=== PATIENT | female | born 1950 | race Caucasian/White ===

== ENCOUNTER 2019-07-20 13:41 | Inpatient (IN) | payer OTHER ==
[2019-07-20 14:58] LABS: Absolute Lymphocytes (CBC) 2.3 K/uL (0.7-4.9); Basophils % 1.7 % (0-1.3); Lymphocytes % 22.7 % (15.3-44.8); MPV 8.3 fL (7.6-11.3); RBC Red Blood Cell Count 2.95 M/uL (3.86-4.86)
[2019-07-20 15:03] LABS: Potassium 3.9 mmol/L (3.5-5.1)
[2019-07-20 15:07] LABS: Hematocrit 18.1 % (36.0-45.0)
--- NOTE | 2019-07-20 16:19 | ER ---
Nurse's Notes [facility] Name: Erma Lara Age: 68 yrs Sex: Female : 1950 Arrival Date: 07/20/2019 Time: 13:44 Bed 8 Private MD: Socrates Batista Diagnosis: Anemia in other chronic diseases classified elsewhere Presentation: 07/20 13:50 Presenting complaint: Patient states: "my hemoglobin is 4.8 and they naun my blood last aa5 but my doctor just got the results". Pt reports heart palpitations, generalized weakness, SOB, and dizziness. Transition of care: patient was not received from another setting of care. Onset of symptoms was July 20, 2019. Risk Assessment: Do you want to hurt yourself or someone else? Patient reports no desire to harm self or others. Initial Sepsis Screen: Does the patient meet any 2 criteria? HR > 90 bpm. Does the patient have a suspected source of infection? No. Patient's initial sepsis screen is negative. Care prior to arrival: None. 13:50 Acuity: TRISTON 2 aa5 13:50 Method Of Arrival: Wheelchair aa5 Historical: - Allergies: 13:53 hydrocodone; aa5 - PMHx: 13:53 Migraines; Hyperlipidemia; aa5 - PSHx: 13:53 Hysterectomy; Tonsillectomy; Knee surgery; ankle surgery; aa5 - Immunization history:: Flu vaccine is up to date. - Social history:: Smoking status: Patient/guardian denies using tobacco. - Ebola Screening: : No symptoms or risks identified at this time. Screenin:10 Abuse screen: Denies threats or abuse. Denies injuries from another. Nutritional mg2 screening: No deficits noted. Tuberculosis screening: No symptoms or risk factors identified. Fall Risk Secondary diagnosis (15 points) anemia. IV access (20 points). Assessment: 14:11 General: Appears in no apparent distress. comfortable, Behavior is calm, cooperative. mg2 Pain: Denies pain. Neuro: Level of Consciousness is awake, alert, obeys commands, Oriented to person, place, time, situation. Cardiovascular: Reports palpitations, shortness of breath, Capillary refill < 3 seconds Patient's skin is warm and dry. Respiratory: Reports shortness of breath Airway is patent Respiratory effort is even, unlabored, Respiratory pattern is regular, symmetrical. Respiratory: GI: : No signs and/or symptoms were reported regarding the genitourinary system. EENT: No signs and/or symptoms were reported regarding the EENT system. Derm: Skin is clammy, Skin is pale. Musculoskeletal: Circulation, motion, and sensation intact. Capillary refill < 3 seconds. 15:22 Reassessment: Patient appears in no apparent distress at this time. No changes from tw2 previously documented assessment. Patient and/or family updated on plan of care and expected duration. Pain level reassessed. 16:21 Reassessment: Patient appears in no apparent distress at this time. Patient and/or mg2 family updated on plan of care and expected duration. Pain level reassessed. Patient is alert, oriented x 3, equal unlabored respirations, skin warm/dry/pink. 16:45 Reassessment: SEE BLOOD TRANSFUSION RECORD. tw2 16:46 Reassessment: dr. Huerta came and assessed the patient and guaiac exam was done by him. mg2 he advised for admission patient agreed. 16:59 Reassessment: Patient appears in no apparent distress at this time. No changes from tw2 previously documented assessment. Patient and/or family updated on plan of care and expected duration. Pain level reassessed. Patient is alert, oriented x 3, equal unlabored respirations, skin warm/dry/pink. Vital Signs: 13:52 BP 141 / 68; Pulse 113; Resp 20 S; Temp 98.4(TE); Pulse Ox 100% on R/A; Weight 70.31 kg aa5 (R); Height 5 ft. 3 in. (160.02 cm) (R); Pain 0/10; 15:22 BP 125 / 55; Pulse 91; Resp 17; Pulse Ox 100% on R/A; tw2 16:45 BP 124 / 53; Pulse 90; Resp 18; Pulse Ox 100% on R/A; tw2 13:52 Body Mass Index 27.46 (70.31 kg, 160.02 cm) aa5 ED Course: 13:44 Patient arrived in ED. mr 13:44 Socrates Batista MD is Private Physician. mr 13:50 Arm band placed on. aa5 13:52 Triage completed. aa5 13:55 Scott Bueno RN is Primary Nurse. mg2 14:09 Christiano Thompson MD is Attending Physician. gs 14:10 Inserted saline lock: 20 gauge in left antecubital area, using aseptic technique. Blood mg2 collected. 14:12 Patient has correct armband on for positive identification. manager monitoring on. Pulse mg2 ox on. NIBP on. 14:30 EKG done, by global position system technician. reviewed by Christiano Thompson MD. at1 16:18 Latesha Huerta MD is Hospitalizing Provider. gs 16:21 Served as a employment security officer during rectal exam. mg2 17:04 Patient admitted, IV remains in place. tw2 Administered Medications: No medications were administered Point of Care Testing: Guaiac: 16:22 Stool Guaiac: Positive; Stool Hemoccult Control: Pass; mg2 Outcome: 16:19 Decision to Hospitalize by Provider. gs 17:25 Admitted to Tele accompanied by nurse, accompanied by tech, via stretcher, with chart. mg2 17:25 Condition: stable 17:25 Condition: stable 17:25 Instructed on the need for admit, Demonstrated understanding of instructions. mg2 17:26 Patient left the ED. mg2 Signatures: Bety Casillas mr CochranMariah, RN RN aa5 Radha Pinzon, radiologic electronic specialist EKG Tat1 Ban Don RN RN tw2 Christiano Thompson MD MD Scott Bueno RN RN mg2 Corrections: (The following items were deleted from the chart) 16:22 14:10 No provider procedures requiring assistance completed. mg2 mg2 16:59 16:45 BP 124 / 53; Pulse 90bpm; Resp 18bpm; Pulse Ox 100% RA; mg2 tw2
--- NOTE | 2019-07-20 16:20 | EDPHYS ---
Physician Documentation [facility] Name: Erma Lara Age: 68 yrs Sex: Female : 1950 Arrival Date: 07/20/2019 Time: 13:44 Bed 8 Private MD: Socrates Batista ED Physician Christiano Thompson HPI: 07/20 16:05 This 68 yrs old Female presents to ER via Wheelchair with complaints of gs Abnormal Lab Results. 16:05 short of breath worse with exertion, Hb 4.8 drawn last week no s/s gi bleeding. gs Historical: - Allergies: 13:53 hydrocodone; aa5 - PMHx: 13:53 Migraines; Hyperlipidemia; aa5 - PSHx: 13:53 Hysterectomy; Tonsillectomy; Knee surgery; ankle surgery; aa5 - Immunization history:: Flu vaccine is up to date. - Social history:: Smoking status: Patient/guardian denies using tobacco. - Ebola Screening: : No symptoms or risks identified at this time. ROS: 16:05 All other systems are negative. gs Exam: 16:05 Head/Face: Normocephalic, atraumatic. Eyes: Pupils equal round and reactive to light, gs extra-ocular motions intact. Lids and lashes normal. Conjunctiva and sclera are non-icteric and not injected. Cornea within normal limits. Periorbital areas with no swelling, redness, or edema. ENT: Nares patent. No nasal discharge, no septal abnormalities noted. Tympanic membranes are normal and external auditory canals are clear. Oropharynx with no redness, swelling, or masses, exudates, or evidence of obstruction, uvula midline. Mucous membranes moist. Neck: Trachea midline, no thyromegaly or masses palpated, and no cervical lymphadenopathy. Supple, full range of motion without nuchal rigidity, or vertebral point tenderness. No Meningismus. Chest/axilla: Normal chest wall appearance and motion. Nontender with no deformity. No lesions are appreciated. Cardiovascular: Regular rate and rhythm with a normal S1 and S2. No gallops, murmurs, or rubs. Normal PMI, no JVD. No pulse deficits. Respiratory: Lungs have equal breath sounds bilaterally, clear to auscultation and percussion. No rales, rhonchi or wheezes noted. No increased work of breathing, no retractions or nasal flaring. Abdomen/GI: Soft, non-tender, with normal bowel sounds. No distension or tympany. No guarding or rebound. No evidence of tenderness throughout. Back: No spinal tenderness. No costovertebral tenderness. Full range of motion. Skin: Warm, dry with normal turgor. Normal color with no rashes, no lesions, and no evidence of cellulitis. MS/ Extremity: Pulses equal, no cyanosis. Neurovascular intact. Full, normal range of motion. Neuro: Awake and alert, GCS 15, oriented to person, place, time, and situation. Cranial nerves II-XII grossly intact. Motor strength 5/5 in all extremities. Sensory grossly intact. Cerebellar exam normal. Normal gait. 16:05 Constitutional: The patient appears alert, awake, pale. 16:05 ECG was reviewed by the Attending Physician. 17:08 Abdomen/GI: Rectal exam: Stool: guaiac positive. gs Vital Signs: 13:52 BP 141 / 68; Pulse 113; Resp 20 S; Temp 98.4(TE); Pulse Ox 100% on R/A; Weight 70.31 kg aa5 (R); Height 5 ft. 3 in. (160.02 cm) (R); Pain 0/10; 15:22 BP 125 / 55; Pulse 91; Resp 17; Pulse Ox 100% on R/A; tw2 16:45 BP 124 / 53; Pulse 90; Resp 18; Pulse Ox 100% on R/A; tw2 13:52 Body Mass Index 27.46 (70.31 kg, 160.02 cm) aa5 MDM: 14:36 Patient medically screened. gs 16:05 Differential Diagnosis anemia chronic disease, gi bleed, hemo;lytic anemia. Data reviewed: vital signs, nurses notes, lab test result(s), EKG. Counseling: I had a detailed discussion with the patient and/or guardian regarding: the historical points, exam findings, and any diagnostic results supporting the discharge/admit diagnosis, lab results, radiology results, the need for further work-up and treatment in the hospital. 07/20 14:09 Order name: CBC with Diff 07/20 14:09 Order name: Basic Metabolic Panel; Complete Time: 15:40 07/20 14:09 Order name: T\T\S 07/20 14:36 Order name: PT-INR; Complete Time: 15:40 07/20 15:48 Order name: Bb Add On eb 07/20 15:51 Order name: Packed RBCs (Additional Unit) [facility] 07/20 14:09 Order name: EKG; Complete Time: 14:10 07/20 14:09 Order name: EKG - Nurse/Tech; Complete Time: 14:33 07/20 15:59 Order name: Consent for Blood Transfusion; Complete Time: 15:59 tw2 07/20 16:17 Order name: LFT's 07/20 16:17 Order name: Ferritin 07/20 16:17 Order name: TIBC 07/20 17:00 Order name: Transfer - Initiate; Complete Time: 17:00 tw2 EC:05 Rate is 93 beats/min. Rhythm is regular. MN interval is normal. QRS interval is normal. gs T waves are Normal. No ST changes noted. Clinical impression: Abnormal EKG without significant change. Interpreted by me. Administered Medications: No medications were administered Point of Care Testing: Guaiac: 16:22 Stool Guaiac: Positive; Stool Hemoccult Control: Pass; mg2 Disposition: 07/20/19 16:19 Hospitalization ordered by Latesha Huerta for Inpatient Admission. Preliminary diagnosis is Anemia in other chronic diseases classified elsewhere. - Bed requested for Telemetry/MedSurg (Inpatient). - Status is Inpatient Admission. mg2 - Condition is Stable. - Problem is an acute exacerbation. - Symptoms are unchanged. UTI on Admission? No Critical care time excluding procedures: 16:17 Critical care time: Bedside Care: 10 minutes, Consultation: 10 minutes, Family Intervention: 10 minutes. Total time: 30 minutes Signatures: Dispatcher [employer] [facility] Marci Piña RN MAG dw Mariah Cochran RN RN aa5 Ban Don RN RN tw2 Christiano Thompson MD MD Scott Bueno RN RN mg2 Corrections: (The following items were deleted from the chart) 16:49 16:19 Hospitalization Ordered by Latesha Huerta MD for Inpatient Admission. Preliminary dw diagnosis is Anemia in other chronic diseases classified elsewhere. Bed requested for Telemetry/MedSurg (Inpatient). Status is Inpatient Admission. Condition is Stable. Problem is an acute exacerbation. Symptoms are unchanged. UTI on Admission? No. gs 17:26 16:49 07/20/2019 16:19 Hospitalization Ordered by Latesha Huerta MD for Inpatient mg2 Admission. Preliminary diagnosis is Anemia in other chronic diseases classified elsewhere. Bed requested for Telemetry/MedSurg (Inpatient). Status is Inpatient Admission. Condition is Stable. Problem is an acute exacerbation. Symptoms are unchanged. UTI on Admission? No. dw
[2019-07-20] MEDS ORDERED: NA CHLORIDE 0.9% 500 ML ONE (16:23)
[2019-07-20] MEDS ORDERED: NA CHLORIDE 0.9% 0 ML ONE (16:33)
[2019-07-20 16:43] LABS: ALT/SGPT 15 U/L (12-78); AST/SGOT 13 U/L (15-37); Albumin 3.3 g/dL (3.4-5.0); Alkaline Phosphatase 79 U/L (45-117); Bilirubin Direct < 0.1 mg/dL (0-0.2); Bilirubin Total 0.3 mg/dL (0.2-1.0); Ferritin 11.1 ng/mL (8-388); Protein, Total 7.3 g/dL (6.4-8.2); Transferrin 431 mg/dL (200-360)
[2019-07-20 17:35] LABS: Anisocytosis 1+; Blood Morphology Comment NOTED (NOT SEEN); Hypochromasia 3+; Platelet Estimate INCR; Polychromasia 1+
[2019-07-20] MEDS ORDERED: NA CHLORIDE 0.9% 250 ML IV SCH (17:47)
[2019-07-20] MEDS ORDERED: FUROSEMIDE 20 MG/ 2ML VIAL IV ONE ×2 (17:47→22:00)
[2019-07-20] MEDS ORDERED: ONDANSETRON 4 MG/2 ML VIAL IV PRN (17:47)
[2019-07-20] MEDS ORDERED: ACETAMINOPHEN 500 MG TAB PO PRN (17:47)
[2019-07-20 18:35] VITALS: BMI 26.4
[2019-07-20] MEDS: PANTOPRAZOLE INJ 80 MG in NA CHLORIDE 0.9% 250 ML IV SCH (18:38)
[2019-07-20] MEDS ORDERED: MECLIZINE HCL 12.5 MG TAB PO PRN (18:54)
[2019-07-20] MEDS ORDERED: [UNRECOGNIZED DRUG - OTHER] NAS PRN (18:54)
[2019-07-20] MEDS ORDERED: FLUTICASONE PROPIONATE NAS PRN (18:54)
[2019-07-20] MEDS ORDERED: RIZATRIPTAN BENZOATE 10 MG PO PRN (18:54)
[2019-07-20] MEDS ORDERED: SOLIFENACIN SUCCIN 5 MG TAB PO SCH (21:00)
[2019-07-20] MEDS ORDERED: ZOLPIDEM TARTRATE 5 MG TABLET PO SCH (21:00)
[2019-07-21] MEDS: PANTOPRAZOLE INJ 80 MG in NA CHLORIDE 0.9% 250 ML IV SCH (03:23)
[2019-07-21] MEDS: NA CHLORIDE 0.9% 1,000 ML IV SCH ×2 (03:43→03:47)
--- NOTE | 2019-07-21 03:50 | HP ---
Date of Admission: 07/20/2019 Chief Complaint: Dizziness, lightheadedness. Primary Care Physician: Dr. Batista. Automotive Machinist: Jono Sage M.D., GI. Code status: Full History Of Present Illness: The patient is a 68-year-old female with past medical history of hyperlipidemia, migraine headaches, gastroesophageal reflux disease, chronic back pain, on NSAIDS, and history of stomach ulcers with H pylori, which was treated over 2 years ago. Patient states that since April, the patient has been experiencing dizziness, which has worsened over the past couple of days to weeks. Patient's symptoms were constantly moderate, progressively worsening, has had cardiac workup, pulmonology workup, and was ruled out for Crohn's as well. She denies any fevers, chills, nausea, vomiting ; however, she does report significant amount of belching. As noted earlier, she does use vojf-bam-gwowvtf ibuprofen on top of the NSAIDs, which is prescribed for her back pain. Patient's last hemoglobin level in November was 13.7, recheck by her rpg programmer was 4.8, and therefore, the patient was directed to the emergency room at our facility. Patient's hemoglobin was 5.2. She denies any active bleeding. No dark stools. No hemoptysis or hematemesis. Patient does have hemorrhoids. Her vital signs were stable. Her heart rate was elevated at 113; however, blood pressure was normal and she was 100% on room air. Patient is severely symptomatic. She is unable to walk without getting dyspneic and is severely anemic. 2 units of blood were ordered for the patient and she was referred for admission. When seen in the ER, she was awake , alert, and oriented x3, in some mild distress, accompanied by her . Past Medical History: Hyperlipidemia, gastroesophageal reflux disease, history of ulcers in the past due to H pylori, which was treated, migraine headaches, arthritis, chronic back pain, on NSAIDs. Past Surgical History: Hysterectomy, tonsillectomy, knee and ankle surgery, scope 2 years ago, and colonoscopy. Allergies: CODEINE. Social History: Patient denies any tobacco use or alcohol use. No illicit drug use. Patient is . Lives at home with her . Independent in her activities of daily living. Family History: Mother had diabetes, hypertension, and also has had thyroid surgery. Review of Systems: 10-point system reviewed and negative except as per HPI. Physical Examination: Vital Signs: Blood pressure 141/68, pulse 113, respirations 20, temperature 98.4, O2 of 100% on room air. General: Awake, alert, oriented x3, in some mild distress, elderly female. HEENT: Normocephalic, atraumatic. PERRLA. EOMI. Moist mucous membranes. Oropharynx is clear. Conjunctiva is anicteric. Neck: Supple. No JVD. Trachea midline. CV: S1, S2. Sinus tachycardia. Peripheral pulses present. No murmurs. Respiratory: Moving air well bilaterally. No wheezing or stridor. No use of accessory muscles. Gastrointestinal: Abdomen is soft, nontender, nondistended. Positive bowel sounds. Rectal: Patient has external hemorrhoid at the 8 o'clock position, appears to be thrombosed. Her stool guaiac is positive. Normal anal sphincter, normal tone. Extremities: No clubbing, cyanosis, or edema. No calf tenderness. Neuro: Cranial nerves 2 through 12 intact grossly. No focal neurological deficit. Speech is normal. Strength is 5/5 in bilateral upper and lower extremities. Sensation intact to light touch. SKIN: Patient appears very pale, cool to touch. No rashes. Psych: Mood is okay. Affect is full. Insight and judgment are good. Laboratory Data: INR 1. Sodium 141, potassium 3.9, chloride 110, CO2 of 23, BUN 20, creatinine 1.23. Glucose 146, calcium 8.8, WBC 10.2, H and H 5.2 and 18.1, platelets 576, MCV is 61.4, MCH 17.5, neutrophil 65%. Assessment: A 68-year-old female with: 1. Acute blood loss anemia, likely secondary to upper gastrointestinal source. Patient will need 2 units of packed red blood cells. We will monitor H and H after transfusion, 2 hours post transfusion. Lasix 20 mg IV. After each unit, consult Gastroenterology. Likely source is gastric ulcer from chronic nonsteroidal anti-inflammatory drug use and history of previous ulcers. 2. Upper gastrointestinal bleed. Stool guaiac positive. Patient with history of ulcers. We will start on intravenous proton pump inhibitor. Patient will likely benefit from upper endoscopy. Consult gastroenterology. 3. Hyperlipidemia. We will continue statin. 4. History of migraine headaches. We will continue medications p.r.n. 5. Arthritis, likely generalized osteoarthritis. Patient has chronic back pain. Avoid nonsteroidal anti-inflammatory drugs. 6. Thrombocytosis, likely reactive. 7. Renal insufficiency. Patient has decreased GFR from an earlier creatinine level compared to previous labs from May. We will continue on intravenous fluids. Avoid nonsteroidal anti-inflammatory drugs. Monitor creatinine levels. Plan: Admit patient to Med-Surg, place as inpatient. Length of stay, greater than 2 midnights. ANDIE Voice ID: [id number] MTDD
[2019-07-21 04:44] LABS: Absolute Lymphocytes (CBC) 2.3 K/uL (0.7-4.9); Basophils % 1.3 % (0-1.3); Hematocrit 27.4 % (36.0-45.0); Lymphocytes % 22.5 % (15.3-44.8); RBC Red Blood Cell Count 4.02 M/uL (3.86-4.86)
[2019-07-21 04:54] LABS: Potassium 3.6 mmol/L (3.5-5.1)
[2019-07-21] MEDS ORDERED: MONTELUKAST 10 MG TAB PO SCH (09:00)
[2019-07-21] MEDS ORDERED: FENOFIBRATE PO SCH (09:00)
[2019-07-21] MEDS ORDERED: Ringers Lactate 1,000 ML IV ONE (11:44)
[2019-07-21] MEDS ORDERED: EPINEPHRINE/PF 1 MG/ML AMP ONE (11:47)
[2019-07-21] MEDS ORDERED: PROPOFOL 200 MG/20 ML VIAL IV ONE (12:12)
[2019-07-21] MEDS ORDERED: LIDOCAINE 1% MPF 2 ML AMPULE ONE (12:12)
--- NOTE | 2019-07-21 12:56 | EKG ---
Test Date: 2019-07-20 Test Time: 14:19:19 Jtac: KHOA MEASUREMENT RESULTS: Intervals: Rate: 93 IL: 176 QRSD: 82 QT: 348 QTc: 432 Derwent: P: 67 IL: 176 QRS: -12 T: 68 INTERPRETIVE STATEMENTS: Normal sinus rhythm Moderate voltage criteria for LVH, may be normal variant Borderline ECG Compared to ECG 11/19/2015 07:26:28 Sinus tachycardia no longer present Atrial premature complex(es) no longer present Myocardial infarct finding no longer present Electronically Signed On 07-21-19 12:54:58 CDT by Fili Quinteros
[2019-07-21 13:06] VITALS: TEMP 97.6; O2SAT 100
[2019-07-21 13:07] VITALS: BP 131/50
[2019-07-21] MEDS ORDERED: PANTOPRAZOLE 40MG TABLET PO SCH (13:10)
[2019-07-21 13:33] LABS: Hematocrit 27.3 % (36.0-45.0)
--- NOTE | 2019-07-21 15:56 | PN ---
Date of Progress Note: 07/21/2019 Subjective: Patient seen and examined. Chart reviewed and case discussed with RN. Patient signific antly improved. No further dizziness or shortness of breath after 2 units of blood. at the bedside. Treatment plan explained. All questions answered. Medications: List reviewed. Physical Examination: Vital Signs: Temperature 97.4, heart rate 75, blood pressure 129/59, respirations 16, O2 of 96% on r oom air. General: Awake, alert, and oriented x3. Minimal distress, elderly female. CV: S1, S2. Regular rate and rhythm. Peripheral pulses present. Respiratory: Moving air well bilaterally. No wheezing or stridor. No use of accessory muscles. Gastrointestinal: Abdomen is soft, nontender, nondistended. Positive bowel sounds. No guarding or rigidity. Extremities: No clubbing, cyanosis, or edema. Neurologic: Cranial nerves 2 through 12 intact grossly. No focal neurological deficits. Speech is normal. Laboratory Data: Sodium 141, potassium 3.6, chloride 107, CO2 of 27, BUN 21, creatinine 1.16, glucos e 110, calcium 8.7. Iron 15, TIBC 603, transferrin is 431, ferritin 11. WBC 10.2, H and H 9.1 and 2 7.4, platelets 429, neutrophils 64%. Assessment And Plan: A 68-year-old female with: 1.Acute blood loss anemia secondary to upper gastrointestinal source bleeding, status post 2 units o f PRBCs. H and H are now improved above 9, currently 9.1, up from 5.2. No active bleeding at this t ade, likely due to ulcers from NSAID use. 2.Upper gastrointestinal bleed. Stool guaiac is positive. History of duodenal ulcers and gastric u lcers and H pylori. Patient is going for esophagogastroduodenoscopy today by Dr. Sage. 3.Mixed hyperlipidemia. We will continue statin. 4.History of migraine headaches, stable. Continue medications p.r.n. 5.Generalized osteoarthritis with chronic back pain. Avoid NSAIDs. 6.Thrombocytosis, improving. 7.Renal insufficiency, likely related to chronic NSAID use, improving. We will continue with IV flu ids. Avoid NSAIDs. Continue to monitor. 8.Deep vein thrombosis prophylaxis, SCDs. No chemical anticoagulation due to bleed. 9.Disposition. Likely discharge in the next 24 to 48 hours depending on clinical response. 10.Iron deficiency. Patient will benefit from IV iron infusions as outpatient. /ALANL Voice ID: [id number] Report ID: [id number]
--- NOTE | 2019-07-21 23:50 | OP ---
Surgeon: Jono Sage MD Procedure Performed: Esophagogastroduodenoscopy. Performing Physician: Jono Sage MD. Indication For Procedure: Symptomatic anemia, iron-deficiency, positive guaiac, rule out acute upper GI source of bleeding. Plan For Anesthesia: Monitored anesthesia care. Complexity: Average. Technique: After obtaining informed consent from the patient, explaining risks and complications, wh ich include but are not limited to bleeding, infection, perforation, and anesthesia complication, pat ient was placed in the left lateral position and sedation was given. From then on, the scope was adv anced through the mouth and carefully guided up until the 3rd portion of the duodenum. After the com pletion of examination, scope and equipment were withdrawn and procedure terminated in a safe manner. No active bleeding or stigmata of recent bleeding was seen. Findings: Esophagus: No gross lesion was seen in the entire esophagus. The GE junction was at 38 c m. Stomach: Mild patchy erythema was seen in the body and the antrum. A few nonspecific erosions w ere seen in the antral region. Antral and body biopsies were taken. Duodenum: The bulb, second, an d third portion appeared normal. Small bowel biopsies were taken to rule out celiac disease. Complications: None. Tolerance To Anesthesia: Excellent. Postoperative Diagnosis: Erosive gastritis. Plan: 1.Await pathology results. 2.Oral PPI. 3.Restart diet. 4.Follow up in the GI clinic. 5.Probably consult Hematology to evaluate further causes of anemia. Patient does report a recent co lonoscopy 2 years ago. We will undertake another colonoscopy on an outpatient basis. US/MODL Voice ID: [id number] Report ID: [id number]
--- NOTE | 2019-07-22 05:42 | DS ---
Date of Discharge: 07/21/2019 Consultants: Dr. Sage with GI. Procedures: EGD on 07/21/2019 with biopsy. Discharge Diagnoses: 1.Acute blood loss anemia. 2.Upper gastrointestinal bleed. 3.Hyperlipidemia. 4.History of migraine headaches. 5.Generalized osteoarthritis with chronic back pain. 6.Thrombocytosis. 7.Renal insufficiency. Hospital Course: Patient is a 68-year-old female who comes in with dizziness and lightheadedness. T he patient had abnormal labs done by her nutrition consultant and found to have a hemoglobin of 4.8. She was referred to the ER. In the ER, she had a hemoglobin of 5.2. She was admitted for further evaluatio n. GI was consulted. Patient had stool guaiac positive, thought to be having slow GI bleeds leading to drop in hemoglobin. Her last normal hemoglobin from records was in November had not been recheck ed since then. However, patient has been symptomatic since April where she has been having dizziness, lightheadedness, shortness of breath. Patient has seen Pulmonology and Cardiology and now is being evaluated by GI. Patient went for EGD, found to have erosive gastritis, however, no ulcers. Patient did have significant history of ulcer in the past approximately 2 years ago. EGD done by Dr. Krause who is unfortunately out of town. Patient's iron studies showed significantly low levels of iron an d high TIBC indicating iron deficiency. The patient will likely benefit from IV iron infusions if no t oral supplementation. She was counseled to take stool softeners with oral iron. Patient was start ed on Protonix drip. She was given 2 units of PRBCs. Her hemoglobin improved to 9.1. Repeat hemogl obin in the afternoon following transfusion was 8.7. She did not have any further active bleeding. Patient was then cleared from GI standpoint. She will be on Protonix 40 mg daily. The patient will need to follow up with GI in 2 weeks. She will need a colonoscopy. She has already had a PillCam. She will need to have celiac disease ruled out. She will also need to follow up with Hematology to f soy investigate the cause of bleeding in addition to the GI source. Condition On Discharge: The patient's condition is stable. Activity: As tolerated. Medications: As per medication reconciliation list. Discontinue diclofenac. Diet: Heart healthy. Physical Examination: For physical exam findings, please see progress note dictated on the day of discharge. Total time spent discharging the patient was 41 minutes. ANDIE Voice ID: [id number] Report ID: [id number]
[2019-07-22] MEDS ORDERED: PANTOPRAZOLE 40MG TABLET PO SCH (12:32)
== END 2019-07-21 16:00 | disposition home or self-care (01) | DRG 378 ==
LOC: ER 13:41 → ERHOLD 16:25 → 2ND 17:09
PROVIDERS: ADMIT Family Medicine; ATTEND Family Medicine
PROC: 30233N1 Transfusion of Nonautologous Red Blood Cells into Peripheral Vein, Percutaneous Approach (ICD-10-PCS; 2019-07-20)
PROC: 0DB88ZX Excision of Small Intestine, Via Natural or Artificial Opening Endoscopic, Diagnostic (ICD-10-PCS; principal; 2019-07-21 12:30)
DX: K29.01 Acute gastritis with bleeding (principal); D62 Acute posthemorrhagic anemia; E78.5 Hyperlipidemia, unspecified; G43.909 Migraine, unspecified, not intractable, without status migrainosus; K21.9 Gastro-esophageal reflux disease without esophagitis; M54.9 Dorsalgia, unspecified; M19.90 Unspecified osteoarthritis, unspecified site; D47.3 Essential (hemorrhagic) thrombocythemia; N28.9 Disorder of kidney and ureter, unspecified; D50.9 Iron deficiency anemia, unspecified; Z79.1 Long term (current) use of non-steroidal anti-inflammatories (NSAID)
CPT/HCPCS: 36415; 36430; 80048; 80076; 82728; 83540; 84466; 85014; 85018; 85025; 85610; 86850; 86900; 86901; 88305; 88312; 93005; 94760; 99285; C9113; J0171; J1940; J2001; J2704; J7030; J7040; J7120; P9016

== ENCOUNTER 2019-08-28 07:54 | Emergency (ER) | payer OTHER ==
--- OUTSIDE RECORDS SUMMARY | 2019-08-28 07:56 | XMS REPORT ---
:1950 [facility] Address [address] [place] [address] Care Team Providers Name Role Phone Unavailable Unavailable Unavailable Payers Payer Name Policy Type Policy Number Effective Date Expiration Date Problems This patient has no known problems. Allergies, Adverse Reactions, Alerts Allergy Allergy Status Severity Reaction(s) Onset Inactive Treating Comments Name Type Date Date Clinician giorgio SUNG Active ADEBAYO 2016-07 00:00:0 0 Medications This patient has no known medications.
[2019-08-28 09:52] LABS: Absolute Lymphocytes (CBC) 1.2 K/uL (0.7-4.9); Basophils % 0.7 % (0-1.3); Lymphocytes % 9.8 % (15.3-44.8); MPV 9.2 fL (7.6-11.3); RBC Red Blood Cell Count 4.63 M/uL (3.86-4.86)
[2019-08-28] MEDS ORDERED: ONDANSETRON 4 MG/2 ML VIAL ONE (10:00)
[2019-08-28] MEDS ORDERED: FENTANYL CITR 100 MCG/2 ML ONE (10:00)
[2019-08-28 10:09] LABS: Albumin 4.1 g/dL (3.4-5.0); Bilirubin Direct 0.1 mg/dL (0-0.2); Bilirubin Total 0.3 mg/dL (0.2-1.0); Potassium 4.1 mmol/L (3.5-5.1); Protein, Total 7.6 g/dL (6.4-8.2)
--- NOTE | 2019-08-28 11:17 | RAD REPORT ---
EXAM DESCRIPTION: CTAbdomen Pelvis W Contrast - 08/28/2019 11:06 am CLINICAL HISTORY: Abdominal pain. ABD PAIN COMPARISON: Chest Angio dated 07/04/2019 TECHNIQUE: Biphasic CT imaging of the abdomen and pelvis was performed with 100 ml non-ionic IV cont rast. All CT scans are performed using dose optimization technique as appropriate and may include automated exposure control or mA/KV adjustment according to patient size. FINDINGS: The lung bases are clear. Mild diffuse fatty liver is present. Low-density lesions in the left lobe liver seen, nonspecific but probably benign. The spleen, pancreas, adrenal glands and kidneys are within normal limits. Cholelit hiasis. No bowel obstruction, free air, free fluid or abscess. Contrast is retained in the colon. Sigmoid div erticulosis is present without diverticulitis. A short appendix is seen. No evidence of significant lymphadenopathy. No suspicious bony findings. IMPRESSION: Moderate retention of barium is seen in the colon along with stool. Fatty liver.
[2019-08-28 11:35] LABS: Urine Blood TRACE (NEG); Urine Glucose NEGATIVE (NEG); Urine Protein 2+ (NEG); Urine Specific Gravity >1.030 (1.005-1.030)
--- NOTE | 2019-08-28 11:41 | ER ---
Nurse's Notes [facility] Name: Erma Lara Age: 68 yrs Sex: Female : 1950 Arrival Date: 08/28/2019 Time: 07:57 Bed 20 Private MD: Koko Krause H Diagnosis: Constipation Presentation: 08/28 08:10 Presenting complaint: Patient states: Constipation since 08/23. Pt reports that Wednesday ss after she had to drink a Barium power substance for a scan, she had diarrhea later that day, but now she is constipated and having vomiting and abd cramping that began yesterday. Denies fever. Transition of care: patient was not received from another setting of care. Onset of symptoms was August 25, 2019. Risk Assessment: Do you want to hurt yourself or someone else? Patient reports no desire to harm self or others. Initial Sepsis Screen: Does the patient meet any 2 criteria? HR > 90 bpm. Does the patient have a suspected source of infection? No. Patient's initial sepsis screen is negative. Care prior to arrival: None. 08:10 Method Of Arrival: Ambulatory ss 08:10 Acuity: TRISTON 3 ss Triage Assessment: 08:10 General: Appears in no apparent distress. comfortable, Behavior is cooperative, bp appropriate for age, anxious. Pain: Complains of pain in abdomen. EENT: No deficits noted. Neuro: No deficits noted. Cardiovascular: No deficits noted. Respiratory: No deficits noted. GI: Reports nausea, vomiting. : No signs and/or symptoms were reported regarding the genitourinary system. Derm: No deficits noted. Musculoskeletal: No deficits noted. Historical: - Allergies: 08:13 HYDROCODONE; ss - PMHx: 08:13 Hyperlipidemia; Migraines; ss - PSHx: 08:13 Hysterectomy; Tonsillectomy; Knee surgery; ankle surgery; ss - Immunization history:: Adult Immunizations up to date. - Social history:: Smoking status: Patient/guardian denies using tobacco. - Ebola Screening: : Patient denies exposure to infectious person Patient denies travel to an Ebola-affected area in the 21 days before illness onset. Screenin:10 Abuse screen: Denies threats or abuse. Denies injuries from another. Nutritional bp screening: No deficits noted. Tuberculosis screening: No symptoms or risk factors identified. Fall Risk None identified. Assessment: 08:10 General: SEE TRIAGE NOTE. bp 10:06 Reassessment: CT PENDING, ALL OTHER CURRENT ORDERS COMPLETED. PT MEDICATED FOR PAIN. bp 11:35 Reassessment: ALL CURRENT ORDERS COMPLETED, PROVIDER AT B/S FOR RE-EVAL. bp 11:53 Reassessment: PT D/C HOME AMBULATORY WITH FAMILY, DX WITH CONSTIPATION. bp Vital Signs: 08:13 BP 148 / 77; Pulse 92; Resp 15; Temp 97.3(TE); Pulse Ox 98% on R/A; Weight 65.77 kg; ss Height 5 ft. 3 in. (160.02 cm); Pain 8/10; 10:05 BP 126 / 46; Pulse 76; Resp 16; Pulse Ox 95% ; bp 11:35 BP 136 / 70; Pulse 54; Resp 16; Pulse Ox 100% ; bp 08:13 Body Mass Index 25.69 (65.77 kg, 160.02 cm) ED Course: 07:57 Patient arrived in ED. ag5 07:57 Socrates Batista MD is Private Physician. ag5 07:57 Koko Krause MD is Private Physician. ag5 08:10 Patient has correct armband on for positive identification. Bed in low position. Call bp light in reach. Side rails up X2. Adult w/ patient. 08:12 Triage completed. ss 08:13 Arm band placed on right wrist. ss 09:00 Toby High PA is PHCP. jr8 09:00 Daniel Marmolejo MD is Attending Physician. jr8 09:05 Socrates Mendoza, RN is Primary Nurse. bp 09:30 Inserted saline lock: 20 gauge in right forearm, using aseptic technique. Blood bp collected. 09:50 Urine collected: clean catch specimen, clear. dh3 11:07 CT Abd/Pelvis - IV Contrast Only In Process Unspecified. EDMS 11:40 Koko Krause MD is Referral Physician. jr8 11:53 No provider procedures requiring assistance completed. IV discontinued, intact, bp bleeding controlled, No redness/swelling at site. Pressure dressing applied. Administered Medications: 10:02 Drug: fentaNYL (PF) 50 mcg Route: IVP; Site: right forearm; bp 11:44 Follow up: Response: Pain is decreased bp 10:02 Drug: Zofran 4 mg Route: IVP; Site: right forearm; bp 11:45 Follow up: Response: Nausea is decreased bp 11:44 Drug: fentaNYL (PF) 50 mcg Route: IVP; Site: right forearm; bp 11:45 Follow up: Response: Pain is decreased bp Outcome: 11:40 Discharge ordered by MD. hart 11:53 Discharged to home ambulatory, with family. bp 11:53 Condition: stable 11:53 Discharge instructions given to patient, Instructed on discharge instructions, follow up and referral plans. Demonstrated understanding of instructions, follow-up care. 11:54 Patient left the ED. bp Signatures: Dispatcher [employer] EDMS Elli Grider RN RN ss Toby High PA PA jr8 Dipika De La Cruz [facility] Socrates Mendoza RN RN Junior Hoover 5
--- NOTE | 2019-08-28 11:41 | EDPHYS ---
Physician Documentation [facility] Name: Erma Lara Age: 68 yrs Sex: Female : 1950 Arrival Date: 08/28/2019 Time: 07:57 Bed 20 Private MD: Koko Krause H ED Physician Daniel Marmolejo HPI: 08/28 10:54 This 68 yrs old Female presents to ER via Ambulatory with complaints of jr8 Abdominal Pain, Vomiting. 10:54 The patient presents with abdominal pain that is diffuse. Onset: The symptoms/episode jr8 began/occurred gradually, 2 day(s) ago. The symptoms do not radiate. Associated signs and symptoms: Pertinent positives: nausea and vomiting. The symptoms are described as sharp. Modifying factors: The symptoms are alleviated by nothing, the symptoms are aggravated by nothing. Severity of pain: At its worst the pain was moderate in the emergency department the pain is unchanged. The patient has not experienced similar symptoms in the past. The patient has been recently seen by a physician:. Patient stated that she completed a small bowel series a few days ago. Stated that she had diarrhea that night but since then had been ok. Stated that now she is constipated and having n/v and abdominal pain that will not go away . Historical: - Allergies: 08:13 HYDROCODONE; ss - PMHx: 08:13 Hyperlipidemia; Migraines; ss - PSHx: 08:13 Hysterectomy; Tonsillectomy; Knee surgery; ankle surgery; ss - Immunization history:: Adult Immunizations up to date. - Social history:: Smoking status: Patient/guardian denies using tobacco. - Ebola Screening: : Patient denies exposure to infectious person Patient denies travel to an Ebola-affected area in the 21 days before illness onset. ROS: 10:54 Eyes: Negative for injury, pain, redness, and discharge, ENT: Negative for injury, jr8 pain, and discharge, Neck: Negative for injury, pain, and swelling, Cardiovascular: Negative for chest pain, palpitations, and edema, Respiratory: Negative for shortness of breath, cough, wheezing, and pleuritic chest pain, Back: Negative for injury and pain, MS/Extremity: Negative for injury and deformity, Skin: Negative for injury, rash, and discoloration, Neuro: Negative for headache, weakness, numbness, tingling, and seizure. 10:54 Abdomen/GI: Positive for abdominal pain, nausea and vomiting, constipation, Negative for diarrhea, anorexia, dysphagia, hematemesis, black/tarry stool, rectal pain, rectal bleeding, bowel incontinence, flatulence. Exam: 10:54 Eyes: Pupils equal round and reactive to light, extra-ocular motions intact. Lids and jr8 lashes normal. Conjunctiva and sclera are non-icteric and not injected. Cornea within normal limits. Periorbital areas with no swelling, redness, or edema. ENT: Nares patent. No nasal discharge, no septal abnormalities noted. Tympanic membranes are normal and external auditory canals are clear. Oropharynx with no redness, swelling, or masses, exudates, or evidence of obstruction, uvula midline. Mucous membranes moist. Neck: Trachea midline, no thyromegaly or masses palpated, and no cervical lymphadenopathy. Supple, full range of motion without nuchal rigidity, or vertebral point tenderness. No Meningismus. Cardiovascular: Regular rate and rhythm with a normal S1 and S2. No gallops, murmurs, or rubs. Normal PMI, no JVD. No pulse deficits. Respiratory: Lungs have equal breath sounds bilaterally, clear to auscultation and percussion. No rales, rhonchi or wheezes noted. No increased work of breathing, no retractions or nasal flaring. Back: No spinal tenderness. No costovertebral tenderness. Full range of motion. Skin: Warm, dry with normal turgor. Normal color with no rashes, no lesions, and no evidence of cellulitis. MS/ Extremity: Pulses equal, no cyanosis. Neurovascular intact. Full, normal range of motion. Neuro: Awake and alert, GCS 15, oriented to person, place, time, and situation. Cranial nerves II-XII grossly intact. Motor strength 5/5 in all extremities. Sensory grossly intact. Cerebellar exam normal. Normal gait. 10:54 Abdomen/GI: Inspection: abdomen appears normal, Bowel sounds: active, all quadrants, Palpation: soft, in all quadrants, moderate abdominal tenderness, in the left upper quadrant, right lower quadrant and left lower quadrant, mass, is not appreciated, rebound tenderness, is not appreciated, voluntary guarding, is not appreciated, involuntary guarding, is not appreciated, no appreciated organomegaly, Indicators: McBurney's point is not tender, Eli's sign is negative, Rovsing's sign is negative, Liver: tenderness, is not appreciated. Vital Signs: 08:13 BP 148 / 77; Pulse 92; Resp 15; Temp 97.3(TE); Pulse Ox 98% on R/A; Weight 65.77 kg; ss Height 5 ft. 3 in. (160.02 cm); Pain 8/10; 10:05 BP 126 / 46; Pulse 76; Resp 16; Pulse Ox 95% ; bp 11:35 BP 136 / 70; Pulse 54; Resp 16; Pulse Ox 100% ; bp 08:13 Body Mass Index 25.69 (65.77 kg, 160.02 cm) ss MDM: 09:01 Patient medically screened. jr8 11:38 Data reviewed: vital signs, nurses notes, lab test result(s), radiologic studies, CT jr8 scan. Data interpreted: Pulse oximetry: on room air is 100 %. Interpretation: normal. Counseling: I had a detailed discussion with the patient and/or guardian regarding: the historical points, exam findings, and any diagnostic results supporting the discharge/admit diagnosis, lab results, radiology results, the need for outpatient follow up, a hitting coach, to return to the emergency department if symptoms worsen or persist or if there are any questions or concerns that arise at home. Response to treatment: the patient's symptoms have markedly improved after treatment. Special discussion: Based on the patient's Hx, exam, and Dx evaluation, there is no indication for emergent surgery or inpatient Tx. It is understood by the patient/guardian that if the Sx's persist or worsen they need to return immediately for re-evaluation. ED course: Following up with Dr. Krause after DC . 08/28 09: Order name: Basic Metabolic Panel; Complete Time: 10: jr8 08/28 09:01 Order name: CBC with Diff jr8 08/28 09: Order name: Creatinine for Radiology; Complete Time: : jr8 08/28 09: Order name: Hepatic Function; Complete Time: : jr8 08/28 09: Order name: Lipase; Complete Time: : jr8 08/28 10:00 Order name: Urine Dipstick--Ancillary (enter results); Complete Time: 11:35 bd 08/28 09: Order name: IV Saline Lock; Complete Time: 09:31 [facility] 08/28 09:01 Order name: Labs collected and sent; Complete Time: 09: [facility] 08/28 09:47 Order name: Urine Dipstick-Ancillary (obtain specimen); Complete Time: 09:48 [facility] 08/28 10:14 Order name: CBC Smear Scan [facility] 08/28 10:49 Order name: CT Abd/Pelvis - IV Contrast Only; Complete Time: 11:28 [facility] Administered Medications: 10:02 Drug: fentaNYL (PF) 50 mcg Route: IVP; Site: right forearm; bp 11:44 Follow up: Response: Pain is decreased bp 10:02 Drug: Zofran 4 mg Route: IVP; Site: right forearm; bp 11:45 Follow up: Response: Nausea is decreased bp 11:44 Drug: fentaNYL (PF) 50 mcg Route: IVP; Site: right forearm; bp 11:45 Follow up: Response: Pain is decreased bp Disposition: 18:18 Co-signature as Attending Physician, Daniel Marmolejo MD Did not see or evaluate patient. ps1 Signing chart for administrative purposes. Not an endorsement of care provided. . Disposition: 08/28/19 11:40 Discharged to Home. Impression: Constipation. - Condition is Stable. - Discharge Instructions: Constipation, Adult. - Medication Reconciliation Form, Thank You Letter, Antibiotic Education, Prescription Opioid Use form. - Follow up: Koko Krause MD; When: 24 Hours; Reason: Recheck today's complaints, Continuance of care, Re-evaluation by your physician. - Problem is new. - Symptoms have improved. Signatures: [facility] Elli Grider RN RN ss Roszak, Josh, PA PA jr8 Socrates Mendoza, MAG RN Daniel Ferguson MD MD ps1 Corrections: (The following items were deleted from the chart) 11:54 11:40 08/28/2019 11:40 Discharged to Home. Impression: Constipation. Condition is bp Stable. Forms are Medication Reconciliation Form, Thank You Letter, Antibiotic Education, Prescription Opioid Use. Follow up: Koko Krause; When: 24 Hours; Reason: Recheck today's complaints, Continuance of care, Re-evaluation by your physician. Problem is new. Symptoms have improved. jr8
[2019-08-28 11:59] VITALS: TEMP 97.3
[2019-08-28 12:01] VITALS: BP 136/70; O2SAT 100
[2019-08-28 13:58] LABS: Anisocytosis 2+; Blood Morphology Comment NOTED (NOT SEEN); Hypochromasia 1+; Platelet Estimate INCR; Urine White Blood Cell Casts OK
== END 2019-08-28 11:54 | disposition home or self-care (01) ==
LOC: ER 07:54
DX: K59.00 Constipation, unspecified (principal); Z88.5 Allergy status to narcotic agent
CPT/HCPCS: 85025; 80048; 36415; 80076; 81003; 83690; 74177; 96375; 96374; 99284; Q9967; J3010; J2405

== ENCOUNTER 2020-04-10 18:35 | Inpatient (IN) | payer OTHER ==
--- OUTSIDE RECORDS SUMMARY | 2020-04-10 18:37 | XMS REPORT | Continuity of Care Document ---
:1950 Author Organization [facility] t Address [address] [place] [address] Care Team Providers Name Role Phone Unavailable Unavailable Unavailable Payers Payer Name Policy Type Policy Number Effective Date Expiration Date S ource Problems This patient has no known problems. Allergies, Adverse Reactions, Alerts Allergy Allergy Status Severity Reaction(s) Onset Inactive Treating Comm ents Source Name Type Date Date Clinician giorgio SUNG Active ADEBAYO 2015-10 [facility] [place] Medications This patient has no known medications. Procedures This patient has no known procedures. Results This patient has no known results.
[2020-04-10] MEDS ORDERED: MORPHINE 4 MG/ML SYR ONE (23:14)
[2020-04-10] MEDS ORDERED: NA CHLORIDE 0.9% 1,000 ML ONE (23:14)
[2020-04-10 23:40] LABS: Absolute Lymphocytes (CBC) 1.5 K/uL (0.7-4.9); Basophils % 0.7 % (0-1.3); Hematocrit 44.3 % (36.0-45.0); Lymphocytes % 14.6 % (15.3-44.8); MPV 9.4 fL (7.6-11.3); RBC Red Blood Cell Count 5.16 M/uL (3.86-4.86)
[2020-04-10 23:52] LABS: ALT/SGPT 39 U/L (12-78); AST/SGOT 31 U/L (15-37); Albumin 4.3 g/dL (3.4-5.0); Alkaline Phosphatase 65 U/L (45-117); BUN Blood Urea Nitrogen 18 mg/dL (7-18); Bicarbonate 25 mmol/L (21-32); Bilirubin Direct < 0.1 mg/dL (0-0.2); Bilirubin Total 0.3 mg/dL (0.2-1.0); Glucose Level 120 mg/dL (74-106); Lipase 89 U/L (73-393); Potassium 4.3 mmol/L (3.5-5.1); Protein, Total 7.9 g/dL (6.4-8.2); Sodium Level 141 mmol/L (136-145)
[2020-04-11 01:02] LABS: Anisocytosis 1+; Blood Morphology Comment NOTED (NOT SEEN); Platelet Estimate ADEQ; Urine White Blood Cell Casts OK
--- NOTE | 2020-04-11 02:10 | EDPHYS ---
Physician Documentation [facility] Name: Erma Lara Age: 69 yrs Sex: Female : 1950 Arrival Date: 04/10/2020 Time: 18:38 Bed 20 Private MD: JUS Physician Junior Yates HPI: 04/10 23:00 This 69 yrs old Female presents to ER via Ambulatory with complaints of cp Abdominal Pain. 23:00 The patient presents with abdominal pain that is diffuse. Onset: The symptoms/episode cp began/occurred today. The symptoms do not radiate. 23:00 Associated signs and symptoms: Pertinent positives: nausea, Pertinent negatives: blood cp in stools, chest pain, constipation, diarrhea, vomiting. 23:00 Severity of pain: in the emergency department the pain is a 10 / 10. cp Historical: - Allergies: 18:49 HYDROCODONE; ss - PMHx: 18:49 Hyperlipidemia; Migraines; Crohn's; ss - PSHx: 18:49 Hysterectomy; Tonsillectomy; Knee surgery; ankle surgery; ss - Immunization history:: Adult Immunizations up to date. - Social history:: Smoking status: Patient denies any tobacco usage or history of. ROS: 23:05 Eyes: Negative for injury, pain, redness, and discharge. cp 23:05 Constitutional: Negative for body aches, chills, fever, poor PO intake. 23:05 ENT: Negative for ear pain, sore throat, difficulty swallowing, difficulty handling secretions. 23:05 Cardiovascular: Negative for chest pain, edema, palpitations. 23:05 Respiratory: Negative for cough, shortness of breath, wheezing. 23:05 Abdomen/GI: Positive for abdominal pain, Negative for vomiting, diarrhea, constipation, abdominal distension, black/tarry stool, rectal bleeding. 23:05 Back: Negative for radiated pain. 23:05 Skin: Negative for rash. 23:05 Neuro: Negative for dizziness, headache, weakness. 23:05 All other systems are negative. Exam: 23:07 Head/Face: Normocephalic, atraumatic. cp 23:07 Constitutional: The patient appears in no acute distress, alert, awake, non-diaphoretic, non-toxic, well developed, well nourished. 23:07 Eyes: Periorbital structures: appear normal, Conjunctiva: normal, no exudate, no injection, Sclera: no appreciated abnormality, Lids and lashes: appear normal, bilaterally. 23:07 ENT: External ear(s): are unremarkable, Nose: is normal, Mouth: is normal, Posterior pharynx: is normal, airway is patent, no erythema, no exudate. 23:07 Chest/axilla: Inspection: normal, Palpation: is normal, no crepitus, no tenderness. 23:07 Cardiovascular: Rate: normal, Rhythm: regular. 23:07 Respiratory: the patient does not display signs of respiratory distress, Respirations: normal, no use of accessory muscles, no retractions, labored breathing, is not present, Breath sounds: are clear throughout, no decreased breath sounds, no stridor, no wheezing. 23:07 Abdomen/GI: Inspection: abdomen appears normal, Bowel sounds: active, all quadrants, Palpation: soft, in all quadrants, moderate abdominal tenderness, in all quadrants, rebound tenderness, is not appreciated, voluntary guarding, is not appreciated, involuntary guarding, is not appreciated. 23:07 Back: pain, is absent, ROM is normal. Vital Signs: 18:47 BP 149 / 76; Pulse 84; Resp 16; Temp 97.9(TE); Pulse Ox 99% on R/A; Weight 70.31 kg; ss Height 5 ft. 3 in. (160.02 cm); Pain 10/10; 23:30 BP 140 / 70; Pulse 77; Resp 16; Pulse Ox 96% on R/A; sg 04/11 02:00 BP 144 / 68; Pulse 73; Resp 16; Pulse Ox 95% on R/A; sg 04:12 BP 142 / 63; Pulse 73; Resp 16; Temp 97.9; Pulse Ox 95% on R/A; sg 04/10 18:47 Body Mass Index 27.46 (70.31 kg, 160.02 cm) ss MDM: 04/10 22:48 Patient medically screened. [facility] 04/11 00:00 Differential diagnosis: appendicitis, bowel obstruction, cholecystitis, Cholelithiasis, cp non-specific abd pain, pancreatitis, Ureterolithiasis, urinary tract infection. 02:08 Data reviewed: vital signs, nurses notes, lab test result(s), radiologic studies, CT cp scan, I have discussed the patient's presentation/case with the attending Emergency Department Physician; and as a result, I will admit patient. 02:08 Counseling: I had a detailed discussion with the patient and/or guardian regarding: the cp historical points, exam findings, and any diagnostic results supporting the discharge/admit diagnosis, lab results, radiology results, the need for further work-up and treatment in the hospital. Physician consultation: Juaquin Castelan was called at 02:05, was contacted at 02:05, regarding admission, to the medical/surgical unit. patient's condition. 04/10 22:51 Order name: Basic Metabolic Panel cp 04/10 22:51 Order name: CBC with Diff cp 04/10 22:51 Order name: Hepatic Function cp 04/10 22:51 Order name: Lipase cp 04/10 23:52 Order name: Basic Metabolic Panel; Complete Time: 00:08 EDMS 07 00:08 Interpretation: Normal except: CL 108; GLUC 120; GFR 53. cp 04/10 23:52 Order name: Liver (Hepatic) Function; Complete Time: 00:08 EDMS 04/11 00:08 Interpretation: Normal except: GLOB 3.6. cp 04/10 22:51 Order name: CT Abd/Pelvis - IV Contrast Only cp 04/10 23:52 Order name: Lipase; Complete Time: 00:08 EDMS 07 00:00 Order name: CBC with Automated Diff; Complete Time: 02:02 EDMS 04/11 00:08 Interpretation: Normal except: RBC 5.16; RDW 20.2; JULIAN% 79.3; LYM% 14.6; NEUT A 8.1. cp 04/11 01:02 Order name: CBC Smear Scan; Complete Time: 02:02 EDMS 04/10 22:51 Order name: IV Saline Lock; Complete Time: 23:47 cp 04/10 22:51 Order name: Labs collected and sent; Complete Time: 23:47 cp Administered Medications: 04/10 23:15 Drug: morphine 4 mg Route: IVP; Site: left upper arm; sg 04/11 00:42 Follow up: Response: No adverse reaction; Pain is decreased sg 04/10 23:15 Drug: NS 0.9% 500 ml Route: IV; Rate: bolus; Site: left upper arm; sg 04/11 00:40 Follow up: Response: No adverse reaction; IV Status: Completed infusion; IV Intake: sg 500ml 03:00 Drug: metroNIDAZOLE 500 mg Volume: 100 ml; Route: IVPB; Infused Over: 30 mins; Site: left upper arm; 03:45 Follow up: Response: No adverse reaction; IV Status: Completed infusion sg 03:08 Drug: Ciprofloxacin 400 mg Volume: 200 ml; Route: IVPB; Infused Over: 60 mins; Site: left upper arm; 04:08 Follow up: Response: No adverse reaction; IV Status: Completed infusion sg Disposition: 04/11/20 02:09 Hospitalization ordered by Juaquin Castelan for Inpatient Admission. Preliminary diagnosis are Other abdominal pain, Partial small bowel obstruction. - Bed requested for Telemetry/MedSurg (Inpatient). - Status is Inpatient Admission. ll1 - Condition is Stable. - Problem is new. - Symptoms have improved. Addendum: 04/15/2020 16:20 Co-signature as Attending Physician, Junior Yates MD I agree with the assessment and c river plan of care. Signatures: Dispatcher [employer] EDMS Jose Brown RN RN Junior Yates MD MD cha Smirch, Shelby, RN RN Alanna Joseph RN RN tl1 Junior West PA PA Susie Veronica Lynsay, RN RN ll1 Corrections: (The following items were deleted from the chart) 04/11 04:07 02:08 NG Tube ordered. cp sg 06:19 02:09 Hospitalization Ordered by Juaquin Castelan for Inpatient Admission. Preliminary tl1 diagnosis is Other abdominal pain; Partial small bowel obstruction. Bed requested for Telemetry/MedSurg (Inpatient). Status is Inpatient Admission. Condition is Stable. Problem is new. Symptoms have improved. cp 12:48 06:19 04/11/2020 02:09 Hospitalization Ordered by Juaquin Castelan for Inpatient eb Admission. Preliminary diagnosis is Other abdominal pain; Partial small bowel obstruction. Bed requested for [facility] ER HOLD. Status is Inpatient Admission. Condition is Stable. Problem is new. Symptoms have improved. tl1 14:17 12:48 04/11/2020 02:09 Hospitalization Ordered by Juaquin Castelan for Inpatient ll1 Admission. Preliminary diagnosis is Other abdominal pain; Partial small bowel obstruction. Bed requested for Telemetry/MedSurg (Inpatient). Status is Inpatient Admission. Condition is Stable. Problem is new. Symptoms have improved. eb
--- NOTE | 2020-04-11 02:10 | ER ---
Nurse's Notes [facility] Name: Erma Lara Age: 69 yrs Sex: Female : 1950 Arrival Date: 04/10/2020 Time: 18:38 Bed 20 Private MD: Diagnosis: Other abdominal pain;Partial small bowel obstruction Presentation: 04/10 18:47 Chief complaint: Patient states: generalized abd pain that began at 1300 today. Pt ss reports that this has happened once before and she was diagnosed with Crohns and is supposed to have her first infusion soon. Coronavirus screen: Proceed with normal triage. Patient denies a cough. Patient denies shortness of breath or difficulty breathing. Patient denies measured and/or subjective temperature greater than 100.4F prior to today's visit. Patient denies travel on a cruise ship or to a country the [facility] currently lists as an affected area. Patient denies contact with known and/or suspected case of COVID-19. Ebola Screen: Patient denies exposure to infectious person. Patient denies travel to an Ebola-affected area in the 21 days before illness onset. Initial Sepsis Screen: Does the patient meet any 2 criteria? No. Patient's initial sepsis screen is negative. Does the patient have a suspected source of infection? No. Patient's initial sepsis screen is negative. Risk Assessment: Do you want to hurt yourself or someone else? Patient reports no desire to harm self or others. Onset of symptoms was April 10, 2020. 18:47 Method Of Arrival: Ambulatory 18:47 Acuity: TIRSTON 3 ss Historical: - Allergies: 18:49 HYDROCODONE; ss - PMHx: 18:49 Hyperlipidemia; Migraines; Crohn's; ss - PSHx: 18:49 Hysterectomy; Tonsillectomy; Knee surgery; ankle surgery; ss - Immunization history:: Adult Immunizations up to date. - Social history:: Smoking status: Patient denies any tobacco usage or history of. Screenin:30 Abuse screen: Denies threats or abuse. Denies injuries from another. Nutritional sg screening: No deficits noted. Tuberculosis screening: No symptoms or risk factors identified. Never had TB. Fall Risk None identified. Assessment: 23:15 General: Appears in no apparent distress. well groomed, well developed, well nourished, sg Behavior is calm, cooperative, appropriate for age. Pain: Complains of pain in abdomen Quality of pain is described as aching. Neuro: Level of Consciousness is awake, alert, obeys commands, Oriented to person, place, time, Speech is normal. Cardiovascular: Patient's skin is warm and dry. Chest pain is denied. Respiratory: Airway is patent Respiratory effort is even, unlabored, Respiratory pattern is regular, symmetrical. GI: Bowel sounds present X 4 quads. GI: Reports lower abdominal pain, nausea. : No signs and/or symptoms were reported regarding the genitourinary system. EENT: No signs and/or symptoms were reported regarding the EENT system. Derm: Skin is pink, warm \T\ dry. Musculoskeletal: Circulation, motion, and sensation intact. Range of motion: intact in all extremities. 04/11 14:16 GI: Abd is soft and non tender X 4 quads. ll1 Vital Signs: 04/10 18:47 BP 149 / 76; Pulse 84; Resp 16; Temp 97.9(TE); Pulse Ox 99% on R/A; Weight 70.31 kg; Height 5 ft. 3 in. (160.02 cm); Pain 10/10; 23:30 BP 140 / 70; Pulse 77; Resp 16; Pulse Ox 96% on R/A; sg 04/11 02:00 BP 144 / 68; Pulse 73; Resp 16; Pulse Ox 95% on R/A; sg 04:12 BP 142 / 63; Pulse 73; Resp 16; Temp 97.9; Pulse Ox 95% on R/A; sg 04/10 18:47 Body Mass Index 27.46 (70.31 kg, 160.02 cm) ED Course: 04/10 18:38 Patient arrived in ED. ag5 18:48 Triage completed. 18:49 Arm band placed on right wrist. ss 22:38 Junior West PA is PHCP. cp 22:38 Junior Yates MD is Attending Physician. cp 22:41 Jose Brown, MAG is Primary Nurse. 23:15 Initial lab(s) drawn, by va, sent to lab. Inserted saline lock: 22 gauge in left upper sg arm, using aseptic technique. Blood collected. 04/11 02:09 Juaquin Castelan is Hospitalizing Provider. cp 14:16 Patient has correct armband on for positive identification. Placed in gown. Bed in low ll1 position. Call light in reach. Side rails up X 1. Pulse ox on. NIBP on. 14:16 No provider procedures requiring assistance completed. Patient admitted, IV remains in ll1 place. Administered Medications: 04/10 23:15 Drug: morphine 4 mg Route: IVP; Site: left upper arm; 04/11 00:42 Follow up: Response: No adverse reaction; Pain is decreased 04/10 23:15 Drug: NS 0.9% 500 ml Route: IV; Rate: bolus; Site: left upper arm; 04/11 00:40 Follow up: Response: No adverse reaction; IV Status: Completed infusion; IV Intake: sg 500ml 03:00 Drug: metroNIDAZOLE 500 mg Volume: 100 ml; Route: IVPB; Infused Over: 30 mins; Site: left upper arm; 03:45 Follow up: Response: No adverse reaction; IV Status: Completed infusion sg 03:08 Drug: Ciprofloxacin 400 mg Volume: 200 ml; Route: IVPB; Infused Over: 60 mins; Site: left upper arm; 04:08 Follow up: Response: No adverse reaction; IV Status: Completed infusion sg Intake: 00:40 IV: 500ml; Total: 500ml. sg Outcome: 02:09 Decision to Hospitalize by Provider. cp 14:16 Admitted to Med/surg accompanied by tech, room 229, Report called to Maxwell Hampton on ll 14:17 Condition: stable ll1 14:17 Patient left the ED. ll1 Signatures: Jose Brown RN RN sg Smirch, Shelby, RN RN Junior West PA PA cp Gaskin, Ajare [facility] Tori Oviedo RN RN ll1
[2020-04-11] MEDS ORDERED: MORPHINE 4 MG/ML SYR ONE (03:21)
[2020-04-11] MEDS ORDERED: CIPROFLOXACIN 400mg IV 400 MG/200 ML BAG IV ONE (03:22)
[2020-04-11] MEDS ORDERED: ONDANSETRON 4 MG/2 ML VIAL ONE (03:22)
[2020-04-11] MEDS ORDERED: METRONIDAZOLE 500mg IVPB 500 MG/100 ML BAG IV ONE ×2 (03:22→12:55)
--- NOTE | 2020-04-11 03:26 | P.HP ---
Certification for Inpatient Patient admitted to: Inpatient With expected LOS: <2 Midnights Practitioner: I am a practitioner with admitting privileges, knowledge of patient current condition, hospital course, and medical plan of care. Services: Services provided to patient in accordance with Admission requirements found in Title 42 Section 412.3 of the Code of Federal Regulations Patient History Date of Service: 04/11/20 Reason for admission: Abdominal pain History of Present Illness: 69-year-old woman with a history of peptic ulcer disease, chronic anemia, recently diagnosed Crohn's disease presented emergency department with a complaint of abdominal cramping of onset this morning, which has been been present for several hrs, patient given vomiting, denied any constipation or diarrhea. CT abdomen and pelvis done in the ED demonstrated partial bowel obstruction and small bowel wall thickening suggestive of inflammation versus infection. Patient is admitted for further management of small bowel obstruction secondary to Crohn's disease flare. Allergies codeine Allergy (Mild, Verified 08/01/19 12:26) Itching/Hives/Rash Home Medications: Aspirin [Adult Low Dose Aspirin EC] 81 mg PO BEDTIME 11/19/15 Meclizine HCl [Dramamine Less Drowsy] 3 tab PO BEDTIME 11/19/15 Rizatriptan Benzoate [Rizatriptan] 10 mg PO SEECOM PRN 11/19/15 Solifenacin [Vesicare*] 10 mg PO BEDTIME 11/19/15 Zolpidem Tartrate [Ambien*] 5 mg PO BEDTIME 11/19/15 Calcium Carbonate [Calcium] 2 tab PO DAILY 07/20/19 Cinnamon Bark [Cinnamon] 2 tab PO DAILY 07/20/19 Cyanocobalamin (Vitamin B-12) [Vitamin B-12] 1 tab PO DAILY 07/20/19 Fenofibrate 1 tab PO DAILY 07/20/19 Fish Oil/Dha/Epa [Fish Oil 1,200 mg Fish Oil] 1 each PO DAILY 07/20/19 Fluticasone Propionate, Micro [Fluticasone Propionate Micro] 50 mg ROME DAILY PRN 07/20/19 L.acidoph,Paracasei, B.lactis [Probiotic] 1 cap PO DAILY 07/20/19 Lysine 500 mg PO DAILY 07/20/19 Magnesium Citrate 400 mg PO DAILY 07/20/19 Melatonin 2 tab PO DAILY 07/20/19 Methylcellulose [Fiber Therapy] 1 tab PO DAILY 07/20/19 Montelukast [Singulair*] 1 tab PO DAILY 07/20/19 Mv-Mn/Iron/Folic Acid/Herb 190 [Vitamin D3 Complete Caplet] 200 mg PO DAILY 07/20/19 Docusate [Colace Cap] 100 mg PO BID #60 cap 07/21/19 Ferrous Sulfate 325 mg PO TID #90 tablet 07/21/19 Pantoprazole Sodium [Protonix] 40 mg PO DAILY #30 tablet. 07/21/19 - Past Medical/Surgical History Diabetic: No -: Vertigo -: Rheumatoid arthritis -: high choesterol -: migraines -: hyperactive bladder -: muscle spasms -: GERD -: Hysterectomy -: tonsillectomy -: tumor removed on back -: L knee sx -: L ankle sx - Family History Father -: Heart disease, Diabetes Mother -: Other (see notes) Notes: hypothyroidism - Social History Alcohol use: No CD- Drugs: No Caffeine use: Yes Review of Systems Other: Except as documented, all other systems reviewed and negative. Physical Examination - Physical Exam General: Alert, In no apparent distress, Oriented x3 HEENT: Mucous membr. moist/pink, Sclerae nonicteric Neck: Supple, JVD not distended Respiratory: Clear to auscultation bilaterally, Normal air movement Cardiovascular: No edema, Normal pulses, Regular rate/rhythm, Normal S1 S2 Capillary refill: <2 Seconds Gastrointestinal: Non-distended, No rebound, No guarding, Other (High-pitched bowel sounds), Distended (Mildly distended), Tenderness (Moderate tenderness) Musculoskeletal: No swelling, No erythema Integumentary: No rashes Neurological: Normal strength at 5/5 x4 extr, Cranial nerves 3-12 intact - Studies Laboratory Data (last 24 hrs) 04/10/20 23:20: WBC 10.2, Hgb 14.3, Hct 44.3, Plt Count 334 04/10/20 23:20: Sodium 141, Potassium 4.3, BUN 18, Creatinine 1.04, Glucose 120 H, Total Bilirubin 0.3, AST 31, ALT 39, Alkaline Phosphatase 65, Lipase 89 Assessment and Plan - Problems (Diagnosis) (1) Partial small bowel obstruction Current Visit: Yes Status: Acute (2) Crohn's disease Current Visit: Yes Status: Acute - Plan Admit the patient to the medical floor. Supportive measures with IV hydration. IV steroid IV antibiotics Keep NPO. Consult to GI Consult general surgery. - Advance Directives Does patient have a Living Will: No Does patient have a Durable POA for Healthcare: No
[2020-04-11] MEDS ORDERED: ONDANSETRON 4 MG/2 ML VIAL IV PRN (05:19)
[2020-04-11] MEDS: NA CHLORIDE 0.9% 1,000 ML IV SCH ×2 (05:19→18:39)
[2020-04-11 05:30] VITALS: BMI 27.4
[2020-04-11] MEDS: METRONIDAZOLE 500mg IVPB 500 MG/100 ML BAG IV SCH ×3 (06:00→17:31)
[2020-04-11] MEDS: METHYLPREDNISOLONE 40 MG INJ IV SCH ×3 (07:05→21:41)
[2020-04-11] MEDS ORDERED: NA CHLORIDE 0.9% 1,000 ML ONE (07:07)
[2020-04-11] MEDS: CEFTRIAXONE/SWI 1gm 1 GM/10 ML SYR IV SCH (07:10)
[2020-04-11] MEDS ORDERED: METHYLPREDNISOLONE 40 MG INJ ONE (07:24)
[2020-04-11] MEDS ORDERED: CEFTRIAXONE 1000 MG/VIAL ONE (07:45)
[2020-04-11] MEDS ORDERED: HEPARIN 5000 UNIT/ML 1 ML VIAL SQ SCH (09:00)
[2020-04-11] MEDS ORDERED: PNEUMOCOCCAL VACCINE 0.5 ML IMVAC ONE ×2 (09:00→12:54)
[2020-04-11] MEDS: MORPHINE 2 MG/ML SYR IV PRN ×2 (09:04→18:57)
[2020-04-11] MEDS ORDERED: MORPHINE 2 MG/ML SYR ONE (09:10)
[2020-04-11] MEDS ORDERED: HEPARIN 5000 UNIT/ML 1 ML VIAL ONE (12:54)
--- NOTE | 2020-04-11 17:55 | RAD REPORT ---
EXAM DESCRIPTION: CT - Abdomen Pelvis W Contrast - 04/11/2020 6:17 am CLINICAL HISTORY: 69 years Female abdominal pain COMPARISON: 08/28/2019. TECHNIQUE: Contiguous axial images obtained through the abdomen and pelvis following IV contrast. Re formatted images obtained. This exam was performed according to our department optimization program which includes automated exp osure control, adjustment of the mA and/or kv according to patient size and/or use of iterative recon struction technique. FINDINGS: Minimal atelectasis/scarring in the right lower lung. Small hiatal hernia. Fatty replacement in the liver. There are stable low density lesions in the left lobe of the liver co nsistent with cysts. The spleen and pancreas appear unremarkable. No adrenal masses. The kidneys appear unremarkable. No hydronephrosis. There are gallstones in the gallbladder. Atherosclerotic calcifications. No aneurysmal dilatation of the aorta. The colon is slightly distended with stool which could be from constipation. There are dilated loops of small bowel with stool-like material within some of the dilated loops. The dilated loops measure u p to approximately 3.5 cm in diameter. There is a transition zone in the left lower pelvis visualized on coronal image 36/102. There appears to be some wall thickening in the loop of small bowel at the transition zone which could be from infectious or inflammatory enteritis. The findings are consistent with at least partial small bowel obstruction. The appendix or appendiceal stump appears unremarkab le. There are occasional colonic diverticula. There is minimal free fluid in the pelvis. There are changes from previous hysterectomy. IMPRESSION: There are findings consistent with at least partial small bowel obstruction. There appea rs to be some wall thickening in the small bowel loop of the transition zone which could be secondary to infectious or inflammatory enteritis. The colon is slightly distended with stool which could be from constipation. Cholelithiasis. There is minimal free fluid in the pelvis. Other findings as above. Electronically signed by: Michael Clancy MD 04/11/2020 12:54 AM CDT Due to temporary technical issues with the PACS/Fluency reporting system, reports are being signed by the in house radiologist without Review as a courtesy to ensure prompt reporting. The interpreting r adiologist is fully responsible for the content of the report.
[2020-04-11 19:25] LABS: Urine Appearance CLEAR; Urine Bilirubin NEGATIVE (NEG); Urine Blood NEGATIVE (NEG); Urine Color YELLOW; Urine Glucose NEGATIVE (NEG); Urine Protein NEGATIVE (NEG); Urine Urobilinogen 0.2 mg/dL (0.2-1.0); Urine pH 5.5 (5.0-7.0)
[2020-04-11 19:26] LABS: Urine Microscopic Reflex NO UMIC
--- NOTE | 2020-04-11 20:21 | CON ---
Date of Consultation: 04/11/2020 Reason For Service: Partial small-bowel obstruction. History Of Present Illness: This is a case of a female who comes to us with several days history of abdominal pain, crampy in nature daily, last for several hours. They make her vomit and then she fee ls slightly better. Since she was not getting better several days ago, she went to a gastroenterolog ist who diagnosed her as per patient with Crohn disease and treatment will be starting in the next . In the meantime, she came here with this problems and she was admitted with small bowel obst ruction and a surgical consult was obtained. She denies any dysuria, hematuria, hematochezia, melena . Denies any recent traveling out of the country. Denies any family member sick at home. The colon oscopies planned are with Dr. 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 Allergies: CODEINE. Medications: Aspirin, Singulair, Ambien, VESIcare, Dramamine. Social History: She does not smoke. She does not drink alcohol. Family History: Heart disease, diabetes. Review of Systems: No shortness of breath. No chest pain. No fever. No melena, no hematochezia. Ten points otherwise unremarkable. Physical Examination: General: Patient is awake and alert. Eyes: Pupils are equal and reactive, anicteric. Neck: Supple. Chest: Clear. Abdomen: Soft and depressible. No guarding or rebound. Softly distended. Mild generalized tendern ess. Breasts: Deferred. Rectal: Deferred. Pelvic: Deferred. Extremities: Good capillary refill. Laboratory Data: Blood work shows WBC count of 10.2 with hemoglobin of 14.3, potassium is 4.3, and g lucose 120. Imaging Data: CAT scan of the abdomen and pelvis is still preliminary. No official result by the ra diologist, although preliminary shows finding consistent with at least partial small bowel obstructio n. There is some wall thickness of the small bowel that may be related to infectious or enteritis. Assessment: This is a female who comes to us with abdominal cramping, vomiting, abdominal pain, ente ritis, diagnosed recently by the GI doctor with Crohn disease, pending treatment to be started next , now come with exacerbation; although she ate some cabbage 2 days ago and still the swelling in that area may be related to the autoimmune disease. From the surgical standpoint, we are going to give her bowel rest, hydration, get GI doctor involved to see if treatment have to be started celso patel No peritonitis at this time. She understands the options of emergent laparotomy, possible bowel resection. If this gets worse or clinically she deteriorates, so the benefits, alternatives, and ris ks fully explained to her. CONCEPCIÓN/FISH Voice ID: [id number] Report ID: [id number]
[2020-04-12] MEDS: HEPARIN 5000 UNIT/ML 1 ML VIAL SQ SCH ×4 (00:19→21:41)
[2020-04-12] MEDS: METRONIDAZOLE 500mg IVPB 500 MG/100 ML BAG IV SCH ×4 (00:19→17:34)
[2020-04-12] MEDS: NA CHLORIDE 0.9% 1,000 ML IV SCH ×2 (00:23→07:59)
[2020-04-12] MEDS: CEFTRIAXONE/SWI 1gm 1 GM/10 ML SYR IV SCH (05:36)
[2020-04-12] MEDS: METHYLPREDNISOLONE 40 MG INJ IV SCH ×2 (05:36→13:11)
[2020-04-12 06:03] LABS: Albumin 3.3 g/dL (3.4-5.0); Bilirubin Total 0.2 mg/dL (0.2-1.0); Magnesium 2.1 mg/dL (1.8-2.4); Potassium 4.1 mmol/L (3.5-5.1); Protein, Total 6.3 g/dL (6.4-8.2)
[2020-04-12 06:30] LABS: Absolute Lymphocytes (CBC) 1.1 K/uL (0.7-4.9); Basophils % 0.5 % (0-1.3); Hematocrit 37.5 % (36.0-45.0); Lymphocytes % 10.2 % (15.3-44.8); RBC Red Blood Cell Count 4.36 M/uL (3.86-4.86)
[2020-04-12 08:31] LABS: Anisocytosis 1+; Blood Morphology Comment NOTED (NOT SEEN); Platelet Estimate ADEQ; Platelets, Giant FEW PRESENT; Urine White Blood Cell Casts OK
--- NOTE | 2020-04-12 17:19 | P.PN ---
Subjective Date of Service: 04/12/20 Primary Care Provider: Dr. Batista; GI-Dr. Cohen Chief Complaint: Abdominal pain Subjective: Improving (Patient is passing gas. Pain significantly improved.) Physical Examination - Vital Signs Temperature: 97.2 F Blood Pressure: 147/69 Pulse: 65 Respirations: 16 Pulse Ox (%): 99 - Physical Exam General: Alert, Cooperative HEENT: Atraumatic Neck: Supple Respiratory: Clear to auscultation bilaterally, Normal air movement Cardiovascular: Normal pulses, Regular rate/rhythm Gastrointestinal: Normal bowel sounds, Soft and benign, Non-distended, No tenderness, No masses, No rebound, No guarding Neurological: Normal speech, Normal strength at 5/5 x4 extr, Normal tone, Normal affect - Studies Laboratory Data (last 24 hrs) 04/10/20 22:51: WBC Cancelled, Hgb Cancelled, Hct Cancelled, Plt Count Cancelled 04/10/20 22:51: Sodium Cancelled, Potassium Cancelled, BUN Cancelled, Creatinine Cancelled, Glucose Cancelled, Total Bilirubin Cancelled, AST Cancelled, ALT Cancelled, Alkaline Phosphatase Cancelled, Lipase Cancelled Medications List Reviewed: Yes Assessment & Plan Discharge Plan: Home Plan to discharge in: 24 Hours Physician Review Additional Text: Impression: Abdominal pain secondary to partial small bowel obstruction with enteritis with history of ulcerative colitis Plan: Patient continues to improve. Patient reassessed twice today. Surgery has evaluated patient. Surgery has advanced her diet to a clear liquid. Possible advancement of diet within the next 24 hr. Continue IV antibiotic therapy. Continue steroid treatment. Case discussed with her GI specialist her agrees with current plan of care. Possible discharge within the next 24 hr. Time Spent Managing Pts Care (In Minutes): 55
[2020-04-12] MEDS: NACHLORIDE 0.45% 1,000 ML IV SCH (18:00)
--- NOTE | 2020-04-12 18:37 | PN ---
Date of Progress Note: 04/12/2020 Reason For Service: Partial small bowel obstruction, inflammatory bowel disease, Crohn disease. Subjective: The patient is doing better. No shortness of breath. No chest pain. No fever. Physical Examination: Abdomen: Soft, no depressible. No guarding or rebound. Mild generalized distention and no peritoni tis. Extremities: Good capillary refill. Laboratory Data: Blood work reviewed. Plan: Full liquid diet. We are still waiting for the GI advise since patient is supposed to be rosales olimpia for Crohn disease in the next few days as per patient. From the surgical standpoint, no surgical plan for today. CONCEPCIÓN/FISH Voice ID: [id number] Report ID: [id number]
[2020-04-12] MEDS: predniSONE 10 MG TAB PO SCH (21:40)
--- NOTE | 2020-04-12 21:49 | CON ---
Date of Consultation: 04/12/2020 Reason For Consultation: Crohn flare, possibly with partial small bowel obstruction. History Of Present Illness: Patient is a 69-year-old white female with history of newly diagnosed Cr ohn disease, rheumatoid arthritis, vertigo, migraines, headaches, reflux disease, hyperlipidemia. Tristen gonzales presented to hospital with severe left upper quadrant and generalized abdominal pain. Patient states she was in her usual state of health, preparing for Remicade infusion. Over the next 2 weeks, she began eating some cooked cabbage, but also ate small amount of raw cabbage before she steamed it on the Wednesday, and the next day, Wednesday, she started having this severe pain. Of note, her husb and had been started on a high-fiber diet due to his food service cashier with heart disease, and she had bee n partaking of his high-fiber diet, it appears. Most notably, she had a small amount of raw cabbage before she cooked it on Wednesday. The next day, Wednesday, she began having this severe pain in the l eft upper quadrant, generalized into the entire abdomen. It was 10/10, and therefore, she went to [facility] emergency room. She has noticed some constipation, exacerbation with severe pain, but n o nausea, vomiting, fevers, chills, diarrhea, melena, hematochezia, hematemesis, coffee-ground emesis , chest pain, shortness of breath, seizure, syncope, joint pain, muscle aches, depression, anxiety. 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 Allergies: CODEINE. Home Medications: Aspirin, Dramamine, rizatriptan, VESIcare, Ambien, calcium, cinnamon, vitamin B12, fenofibrate, fish oil, fluticasone, acidophilus probiotic, lysine, magnesium, melatonin, methylcellu lose, Singulair, vitamin D3, Colace, ferrous sulfate, and Protonix. Social History: She is , 1 son, 3 grandchildren. No tobacco. No alcohol. Family History: Father of diabetes, coronary artery disease, possible myocardial infarction. M other has glaucoma, hypertension, hypothyroidism. Review of Systems: As per above. Patient has left upper quadrant and generalized abdominal pain, 10/10, now down to 6/1 0. Constipation but no nausea, vomiting, fevers, chills, diarrhea, melena, hematochezia, hematemesis , coffee-ground emesis, hematuria, dysuria, or polydipsia. No hemoptysis. No chest pain, shortness of breath, seizure, syncope, lower extremity muscle aches, joint aches, backaches, depression, anxiet y. Physical Examination: Vital Signs: She is 5 feet 3 inches, 155 pounds. BMI 27 kg/sq m. Temperature 97.2 degrees Fahrenhe it, pulse 65, respirations 16, blood pressure 147/69, O2 saturation 99%. General: She is a well-nourished, well-developed female lying in bed, in no acute distress. HEENT: Normocephalic, atraumatic. Anicteric. Pupils equal, round, reactive to light. Extraocular movements intact. Oropharynx is clear. Neck: Supple. No mass. Respirations: Clear to auscultation bilaterally. Heart: Regular rate and rhythm. No gallop or rub. Abdomen: Positive bowel sounds. Soft. Generalized abdominal pain, worst in the left upper quadrant area with some mild guarding but no rebound. No Eli sign. Extremities: No clubbing, cyanosis, or edema. 2+ pulses. Neuro: Oriented x3. Grossly nonfocal. 5/5 motor strength. Sensation intact to light touch. Laboratory Data And Imaging: Patient has a white count of 10.5, hemoglobin of 12.5, hematocrit 37.5, MCV of 86, platelet count of 283, polys of 89%, lymphocytes 7%, monocytes 7%. On steroids, Solu-Med rol 40 mg q.8 h. Sodium 143, potassium 4.1, chloride 113, bicarb 22, BUN 15, creatinine 0.72, glucos e 118, calcium 8.4. Phosphorus of 3.0, magnesium 2.1. Total bilirubin 0.2, AST 18, ALT of 29, alkal ine phosphatase 55. Yesterday, she had a total bilirubin of 0.3. She had a total protein of 6.3, al bumin 3.3. Yesterday, albumin was 4.3. Globulin 3.0. Lipase 89. UA was negative. CT abdomen and pelvis revealed partial bowel obstruction in the left lower quadrant area with loops o f bowel, 3.5 cm in diameter; thickening of some of the small bowel loops with a transition zone indic ative of infection or inflammatory enteritis such as inflammatory bowel disease/Crohn disease, which she has been diagnosed with. Also cholelithiasis was noted. There was some distention of the colon with stool, it appears, indicative of constipation. Impression: 1.Crohn disease flare with partial small bowel obstruction after eating cooked and raw cabbage the d ay before her ER admission at 6:40 p.m. on Wednesday. She describes left upper quadrant and generali zed abdominal pain, maximum 10/10, now down to 6/10. On IV fluids, IV antibiotics, p.r.n. pain medic alfredo, and IV steroids as well in the hospital. She has constipation but no nausea, vomiting, fevers, chills, diarrhea, melena, hematochezia, coffee-ground emesis, hematemesis. No backaches, muscle ach es, joint aches, chest pain, shortness of breath. 2.History of rheumatoid arthritis, hyperlipidemia, vertigo, migraine headaches, gastric reflux disea se, hysterectomy, tonsillectomy, left knee surgery, left ankle surgery, and newly diagnosed Crohn dis ease as an outpatient before this admission. Apparently gets Remicade infusions. Recommendations: 1.Continue IV fluids, IV antibiotics. 2.Decrease IV steroids from 40 mg IV q.8 to 40 mg over 24-hour period on IV drip. 3.Diet slowly increased from clear liquids to full liquids to a low-residue diet as tolerated by pat mickey. No NSAIDs. 4.Continue PPI therapy. 5.6-MP or Imuran 50 mg p.o. daily on discharge. Anticipate Remicade infusion over the next 1-2 week s as outpatient. PHOEBE/FISH Voice ID: [id number] Report ID: [id number]
[2020-04-13] MEDS: METRONIDAZOLE 500mg IVPB 500 MG/100 ML BAG IV SCH ×4 (01:01→17:21)
[2020-04-13 02:17] VITALS: O2SAT 94
[2020-04-13] MEDS: CEFTRIAXONE/SWI 1gm 1 GM/10 ML SYR IV SCH (05:01)
[2020-04-13] MEDS: NACHLORIDE 0.45% 1,000 ML IV SCH (05:02)
[2020-04-13] MEDS: HEPARIN 5000 UNIT/ML 1 ML VIAL SQ SCH (08:31)
[2020-04-13] MEDS: predniSONE 10 MG TAB PO SCH (08:31)
--- NOTE | 2020-04-13 11:57 | P.DS ---
Admission Date: 04/11/20 Discharge Date: 04/13/20 Primary Care Provider: Dr. Batista; GI-Dr. Cohen Disposition: ROUTINE DISCHARGE Discharge Condition: GOOD Reason for Admission: Abdominal pain Consultations: GI-Dr. Krause Surgery-Dr. Rich Procedures: CT Scan: FINDINGS: Minimal atelectasis/scarring in the right lower lung. Small hiatal hernia. Fatty replacement in the liver. There are stable low density lesions in the left lobe of the liver consistent with cysts. The spleen and pancreas appear unremarkable. No adrenal masses. The kidneys appear unremarkable. No hydronephrosis. There are gallstones in the gallbladder. Atherosclerotic calcifications. No aneurysmal dilatation of the aorta. The colon is slightly distended with stool which could be from constipation. There are dilated loops of small bowel with stool-like material within some of the dilated loops. The dilated loops measure up to approximately 3.5 cm in diameter. There is a transition zone in the left lower pelvis visualized on coronal image 36/102. There appears to be some wall thickening in the loop of small bowel at the transition zone which could be from infectious or infla mmatory enteritis. The findings are consistent with at least partial small bowel obstruction. The appendix or appendiceal stump appears unremarkable. There are occasional colonic diverticula. There is minimal free fluid in the pelvis. There are changes from previous hysterectomy. IMPRESSION: There are findings consistent with at least partial small bowel obstruction. There appears to be some wall thickening in the small bowel loop of the transition zone which could be secondary to infectious or inflammatory enteritis. The colon is slightly distended with stool which could be from constipation. Cholelithiasis. There is minimal free fluid in the pelvis. Other findings as above. Medical Problem List: Abdominal pain secondary to partial small bowel obstruction-resolved with enteritis with history of Crohn's colitis likely flare Brief History of Present Illness: 69-year-old female with history of Crohn's colitis. Patient presented with abdominal pain, nausea and vomiting. CT scan revealed partial small-bowel obstruction with enteritis. Patient admitted for further evaluation and treatment. Hospital Course: Patient presented with abdominal pain. CT showed partial small-bowel obstruction with enteritis. Patient with history of Crohn's. Patient was seen and evaluated by surgery and GI. The patient has done well. Patient able to pass gas and had a bowel movement prior to discharge. No surgical intervention was required. Partial small-bowel obstruction likely related to something she may have eaten-cabbage. Patient without abdominal pain at discharge. No nausea vomiting noted. Case discussed in detail with surgery and GI. At discharge patient will continue with Cipro 500 mg daily and Flagyl 500 mg 3 times a day for total of 3 weeks. At discharge she will also continue with prednisone 20 mg 1 pill twice daily for 1 week then 10 mg 1 pill twice daily for 1 week then 10 mg daily for 1 week. GI also recommends Imuran 50 mg daily. Patient will follow up with GI within 1 week to follow up this hospitalization and to further address. Vital Signs/Physical Exam: Temp Pulse Resp BP Pulse Ox 97.9 F 56 18 140/80 97 04/13/20 04:00 04/13/20 04:00 04/13/20 04:00 04/13/20 04:00 04/13/20 04:00 General: Alert, In no apparent distress, Oriented x3, Cooperative HEENT: Atraumatic Neck: Supple Respiratory: Clear to auscultation bilaterally, Normal air movement Cardiovascular: Normal pulses, Regular rate/rhythm Gastrointestinal: Normal bowel sounds, Soft and benign, Non-distended, No ascites, No tenderness, No masses, No rebound, No guarding Musculoskeletal: No erythema, No tenderness, No warmth Integumentary: No tenderness/swelling, No erythema, No warmth, No cyanosis Neurological: Normal speech, Normal strength at 5/5 x4 extr, Normal tone, Normal affect Laboratory Data at Discharge: WBC 10.5 K/uL (4.3-10.9) 04/12/20 05:28 Hgb 12.5 g/dL (12.0-15.0) 04/12/20 05:28 Hct 37.5 % (36.0-45.0) D 04/12/20 05:28 Plt Count 283 K/uL (152-406) 04/12/20 05:28 Sodium 143 mmol/L (136-145) 04/12/20 05:28 Potassium 4.1 mmol/L (3.5-5.1) 04/12/20 05:28 BUN 15 mg/dL (7-18) 04/12/20 05:28 Creatinine 0.72 mg/dL (0.55-1.3) 04/12/20 05:28 Glucose 118 mg/dL (74-106) H 04/12/20 05:28 Phosphorus 3.0 mg/dL (2.5-4.9) 04/12/20 05:28 Magnesium 2.1 mg/dL (1.8-2.4) 04/12/20 05:28 Total Bilirubin 0.2 mg/dL (0.2-1.0) 04/12/20 05:28 AST 18 U/L (15-37) 04/12/20 05:28 ALT 29 U/L (12-78) 04/12/20 05:28 Alkaline Phosphatase 55 U/L (45-117) 04/12/20 05:28 Lipase 89 U/L (73-393) 04/10/20 23:20 Home Medications: Aspirin [Adult Low Dose Aspirin EC] 81 mg PO BEDTIME 11/19/15 Meclizine HCl [Dramamine Less Drowsy] 3 tab PO BEDTIME 11/19/15 Rizatriptan Benzoate [Rizatriptan] 10 mg PO TIDP PRN 11/19/15 Solifenacin [Vesicare*] 10 mg PO DAILY 11/19/15 Zolpidem Tartrate [Ambien*] 5 mg PO BEDTIME 11/19/15 Calcium Carbonate [Calcium] 2 tab PO DAILY 07/20/19 Cyanocobalamin (Vitamin B-12) [Vitamin B-12] 1 tab PO DAILY 07/20/19 Fenofibrate 54 mg PO DAILY 07/20/19 Fluticasone Propionate, Micro [Fluticasone Propionate Micro] 1 spray ROME DAILY PRN 07/20/19 L.acidoph,Paracasei, B.lactis [Probiotic] 1 cap PO DAILY 07/20/19 Lysine 500 mg PO DAILY 07/20/19 Magnesium Citrate 400 mg PO DAILY 07/20/19 Melatonin 2 tab PO BEDTIME PRN PRN 07/20/19 Methylcellulose [Fiber Therapy] 1 tab PO DAILY 07/20/19 Montelukast [Singulair*] 1 tab PO DAILY 07/20/19 Mv-Mn/Iron/Folic Acid/Herb 190 [Vitamin D3 Complete Caplet] 200 mg PO DAILY 07/20/19 Docusate [Colace Cap*] 100 mg PO BID #60 cap 07/21/19 Pantoprazole Sodium [Protonix] 40 mg PO DAILY #30 tablet.dr 07/21/19 Pantoprazole [Protonix Tab*] 40 mg PO DAILY 04/11/20 Ciprofloxacin HCl [Cipro 500 MG Tablet] 500 mg PO DAILY #21 tab 04/13/20 azaTHIOprine [Imuran] 50 mg PO DAILY #30 tab 04/13/20 metroNIDAZOLE [Flagyl] 500 mg PO Q8H #21 tablet 04/13/20 predniSONE [Deltasone*] 10 mg PO SEECOM #50 tab 04/13/20 New Medications: Ciprofloxacin HCl [Cipro 500 MG Tablet] 500 mg PO DAILY #21 tab predniSONE [Deltasone*] 10 mg PO SEECOM #50 tab metroNIDAZOLE [Flagyl] 500 mg PO Q8H #21 tablet azaTHIOprine [Imuran] 50 mg PO DAILY #30 tab Patient Discharge Instructions: 1. Recommend follow up with GI within 1 week to follow up this hospitalization. 2. Patient presented with abdominal pain. CT showed partial small-bowel obstruction with enteritis. Patient with history of Crohn's. Patient was seen and evaluated by surgery and GI. The patient has done well. Patient able to pass gas and had a bowel movement prior to discharge. No surgical intervention was required. Partial small-bowel obstruction likely related to something she may have eaten-cabbage. Patient without abdominal pain at discharge. No nausea vomiting noted. Case discussed in detail with surgery and GI. At discharge patient will continue with Cipro 500 mg daily and Flagyl 500 mg 3 times a day for total of 3 weeks. At discharge she will also continue with prednisone 20 mg 1 pill twice daily for 1 week then 10 mg 1 pill twice daily for 1 week then 10 mg daily for 1 week. GI also recommends Imuran 50 mg daily. Patient will follow up with GI within 1 week to follow up this hospitalization and to further address. Diet: GI soft and low-fiber Activity: Ad denia Time spent managing pt's care (in minutes): 55
[2020-04-13 16:33] VITALS: BP 147/67; TEMP 98.5
== END 2020-04-13 17:26 | disposition home or self-care (01) | DRG 386 ==
LOC: ER 18:35 → ERHOLD 04-11 04:07 → 2ND 04-11 13:57
PROVIDERS: ADMIT Internal Medicine; ATTEND Family Medicine
DX: K50.912 Crohn's disease, unspecified, with intestinal obstruction (principal); K63.3 Ulcer of intestine; K27.9 Peptic ulcer, site unspecified, unspecified as acute or chronic, without hemorrhage or perforation; M06.9 Rheumatoid arthritis, unspecified; E78.00 Pure hypercholesterolemia, unspecified; G43.909 Migraine, unspecified, not intractable, without status migrainosus; K21.9 Gastro-esophageal reflux disease without esophagitis; K52.9 Noninfective gastroenteritis and colitis, unspecified; K58.9 Irritable bowel syndrome, unspecified; Z28.21 Immunization not carried out because of patient refusal; Z11.59 Encounter for screening for other viral diseases
CPT/HCPCS: 36415; 74177; 80048; 80053; 80076; 81003; 83690; 83735; 84100; 85025; 90670; 96361; 96365; 96375; 99285; J0696; J0744; J1644; J2270; J2405; J2920; J7030; J7512; Q9967; U0002

== ENCOUNTER 2020-07-22 10:47 | Day surgery (SDC) | payer OTHER ==
[2020-07-18 12:35] LABS: Absolute Lymphocytes (CBC) 1.5 K/uL (0.7-4.9); Basophils % 1.3 % (0-1.3); Hematocrit 39.9 % (36.0-45.0); Lymphocytes % 24.8 % (15.3-44.8); MPV 8.7 fL (7.6-11.3)
[2020-07-18 12:54] LABS: ALT/SGPT 38 U/L (12-78); AST/SGOT 31 U/L (15-37); Albumin 3.6 g/dL (3.4-5.0); Alkaline Phosphatase 62 U/L (45-117); Amylase 95 U/L (25-115); BUN Blood Urea Nitrogen 18 mg/dL (7-18); Bicarbonate 26 mmol/L (21-32); Bilirubin Direct < 0.1 mg/dL (0-0.2); Bilirubin Total 0.4 mg/dL (0.2-1.0); Glucose Level 99 mg/dL (74-106); Lipase 288 U/L (73-393); Potassium 4.2 mmol/L (3.5-5.1); Sodium Level 142 mmol/L (136-145)
--- NOTE | 2020-07-18 12:56 | RAD REPORT ---
EXAM DESCRIPTION: RAD - Chest Pa And Lat (2 Views) - 07/18/2020 12:50 pm CLINICAL HISTORY: PREOP, SAME DAY SURGERY, BED 5, patient pending cholecystectomy COMPARISON: March 21, 2020 TECHNIQUE: Frontal and lateral views of the chest were obtained. FINDINGS: The lungs are clear. Heart size is normal and central vasculature is within normal limit s. No pleural effusion or pneumothorax seen. No acute bony finding noted. No aortic abnormality. IMPRESSION: No acute cardiopulmonary process. No significant change from comparison.
--- OUTSIDE RECORDS SUMMARY | 2020-07-22 10:50 | XMS REPORT | Continuity of Care Document ---
:1950 Author Organization [facility] t Address [address] [place] [address] Care Team Providers Name Role Phone Unavailable Unavailable Unavailable Payers Payer Name Policy Type Policy Number Effective Date Expiration Date S ource Problems This patient has no known problems. Allergies, Adverse Reactions, Alerts Allergy Allergy Status Severity Reaction(s) Onset Inactive Treating Comm ents Source Name Type Date Date Clinician giorgio SUNG Active ADEBAYO 2015-10 [facility] [place] Medications This patient has no known medications. Procedures This patient has no known procedures. Results This patient has no known results.
[2020-07-22] MEDS ORDERED: Ringers Lactate 1,000 ML IV ONE ×2 (11:09→13:15)
[2020-07-22] MEDS ORDERED: MIDAZOLAM HCL 2 MG/2 ML INJ ONE (11:21)
[2020-07-22] MEDS ORDERED: FENTANYL CITR 100 MCG/2 ML ONE (11:21)
[2020-07-22] MEDS ORDERED: propofoL 200 MG/20 ML VIAL IV ONE (11:21)
[2020-07-22] MEDS ORDERED: LIDOCAINE 2% MPF 5 ML VIAL ONE (11:22)
[2020-07-22] MEDS ORDERED: KETOROLAC 30 MG/ML INJ ONE (11:22)
[2020-07-22] MEDS ORDERED: ONDANSETRON 4 MG/2 ML VIAL ONE ×2 (11:22→14:43)
[2020-07-22] MEDS ORDERED: ROCURONIUM 50 MG/5 ML VIAL IV ONE (11:22)
[2020-07-22] MEDS: CEFOXITIN/SWI 1gm 1 GM/10 ML SYR ONE ×2 (11:55→12:03)
[2020-07-22] MEDS ORDERED: dexAMETHasone 10 MG/ML VIAL ONE (12:48)
[2020-07-22] MEDS ORDERED: DIPHENHYDRAMINE 50 MG/ML VIAL ONE (12:49)
--- NOTE | 2020-07-22 13:00 | P.BOP ---
Preoperative diagnosis: acute cholecystitis, symptomatic cholelithiasis Postoperative diagnosis: same Primary procedure: Laparoscopic cholecystectomy Linux Engineer: EFREN ROBLERO (PURCHASING AGENT) Estimated blood loss: <10cc Specimen: gb Findings: as above Anesthesia: General Complications: None Transferred to: Recovery Room Condition: Good
[2020-07-22] MEDS ORDERED: GLYCOPYRROLATE 0.2 MG/ML SYR ONE (13:09)
[2020-07-22] MEDS ORDERED: NEOSTIGMINE 1 MG/ML -5 ML ONE (13:12)
[2020-07-22] MEDS: MEPERIDINE HCL 25 MG/ML SYR ONE ×2 (13:48→13:53)
[2020-07-22] MEDS ORDERED: SUCCINYLCHOLINE 20 MG/ML (10 ML) IV ONE (13:55)
[2020-07-22] MEDS: HYDROMORPHONE HCL 1 MG/ML INJ ONE ×2 (14:01→14:06)
[2020-07-22] MEDS: FENTANYL CITR 100 MCG/2 ML ONE ×2 (14:08→14:14)
--- NOTE | 2020-07-22 14:34 | OP ---
Date of Procedure: 07/22/2020 Surgeon: Hugo Rich MD Infection Control Manager: Vanessa Parada. Preoperative Diagnoses: Acute cholecystitis, symptomatic cholelithiasis, Crohn disease. Postoperative Diagnoses: Acute cholecystitis, symptomatic cholelithiasis, Crohn disease. Procedure: Laparoscopic cholecystectomy. Specimen: Gallbladder. Finding: As above. Anesthesia: General plus local. Indications: This is the case of a female, who comes to us with above diagnosis. Fully explained th e benefits, alternatives, and risks of laparoscopic possible open cholecystectomy, which include, but not limited to infection, bleeding, damage to adjacent structures, anesthesia complication, choledoc holithiasis, bile leak, pancreatitis, UT and even . She also understands this may not relieve t he symptoms. She might need more than one surgical intervention. She understood, signed a consent. Procedure In Detail: The patient was brought to the operating room and placed in supine position. A nesthesia was done without complication. Abdominal area was prepped and draped in a sterile fashion. Marcaine 0.5% was injected for local anesthetic followed by sharp incision of the skin in the infra umbilical region. Incision was carried down to fascia, which was opened under direct vision. Perito neum was encountered, opened under direct vision. Vicryl #1 placed inside the fascia. Melissa trocar was carefully introduced. No bleeding was obtained. I placed 3 more trocars, 5 mm each one of them , 1 in epigastric area and 2 in the right upper quadrant. Using same technique which consisted of lo katie anesthetic, sharp incision of the skin, introduction of the trocars under direct vision. This al lowed me to put a grasper in the fundus of the gallbladder and another grasper in the infundibulum re tracting the gallbladder in the inferolateral fashion exposing the triangle of Calot and obtaining cr itical view. Cystic duct and cystic artery were clearly isolated free circumferentially and a connec tion between those and the gallbladder was clearly identified. I proceeded to ligate those by using at least 3 clips proximal, 1 clip distal, and ligation in the middle. Same was done with the cystic artery. A small little branch of the cystic artery was also ligated using same technique. The hepat ic arteries and common bile duct were protected at all times. At that moment, I proceeded to remove the gallbladder from liver using Bovie cauterizer and removed from abdominal cavity using EndoCatch t hrough the umbilical incision. The area was inspected once again. No bile leak. No bleeding. Clip s were intact. At that moment, I proceeded to remove the trocars under direct vision, deflated pneum operitoneum, closed the fascia with #1 Vicryl, irrigated the subcutaneous tissue, closed with 3-0 chr omic and skin in a subcuticular fashion with 3-0 chromic and Steri-Strips on top. Sponge count and i nstrument counts correct. The patient tolerated the procedure well. The patient was sent to recover y in stable condition. CONCEPCIÓN/FISH Voice ID: [id number] Report ID: [id number]
--- NOTE | 2020-07-22 14:37 | DS ---
Diagnoses: Acute cholecystitis, symptomatic cholelithiasis. Procedure: Laparoscopic cholecystectomy. Disposition: Home. Activity: As tolerated, no heavy lifting. Plan: Follow up in my office in 1 week. Call for appointment at [phone]. Keep area dry for 48 echo rs, then may shower. Keep Steri-Strip intact. Medications: Include Ultram q.4 hours p.r.n. pain and Cipro 500 p.o. q.12. CONCEPCIÓN/FISH Voice ID: [id number] Report ID: [id number]
[2020-07-22 14:44] VITALS: TEMP 97.3
[2020-07-22] MEDS ORDERED: TRAMADOL 37.5mg/APAP 325mg PER TAB ONE ×2 (15:05→15:11)
[2020-07-22 15:19] VITALS: BP 121/54; O2SAT 99
== END 2020-07-22 15:23 | disposition home or self-care (01) ==
LOC: OR 10:47
PROVIDERS: ATTEND Surgery
PROC: 0FT44ZZ Resection of Gallbladder, Percutaneous Endoscopic Approach (ICD-10-PCS; principal; 2020-07-22 15:15)
DX: K80.10 Calculus of gallbladder with chronic cholecystitis without obstruction (principal); Z20.828 Contact with and (suspected) exposure to other viral communicable diseases; K50.90 Crohn's disease, unspecified, without complications; D64.9 Anemia, unspecified; Z88.6 Allergy status to analgesic agent
CPT/HCPCS: 93005; 85025; 80048; 36415; 82150; 80076; 88304; 83690; 71046; 47562; J2704; J0330; J1200; J2250; J3010 ×2; J1100; J2175; J1170; J2710; J7120 ×2; J2405 ×2

== ENCOUNTER 2021-07-21 05:34 | Emergency (ER) | payer OTHER ==
[2021-07-21 06:50] LABS: Hematocrit 42.6 % (36.0-45.0); RBC Red Blood Cell Count 4.72 M/uL (3.86-4.86)
[2021-07-21] MEDS ORDERED: ACYCLOVIR 400 MG TABLET ONE (06:50)
[2021-07-21] MEDS ORDERED: predniSONE 20 MG TAB ONE (06:50)
[2021-07-21 06:51] LABS: Basophils % 1.4 % (0-1.3); Lymphocytes % 35.2 % (15.3-44.8); MPV 8.4 fL (7.6-11.3)
[2021-07-21] MEDS ORDERED: ONDANSETRON 4 MG/2 ML VIAL ONE (06:57)
[2021-07-21] MEDS ORDERED: METHYLPREDNISOLONE 125 MG INJ ONE (06:57)
[2021-07-21] MEDS ORDERED: DIPHENHYDRAMINE 50 MG/ML VIAL ONE (06:57)
[2021-07-21] MEDS ORDERED: NA CHLORIDE 0.9% 500 ML ONE (06:57)
[2021-07-21 07:01] LABS: Potassium 4.6 mmol/L (3.5-5.1)
--- NOTE | 2021-07-21 07:09 | RAD REPORT ---
EXAM DESCRIPTION: CT - Head Brain Wo Cont - 07/21/2021 6:57 am CLINICAL HISTORY: ADAMSON'S PALSY COMPARISON: No comparisons TECHNIQUE: All CT scans are performed using dose optimization technique as appropriate and may inclu de automated exposure control or mA/KV adjustment according to patient size. FINDINGS: No intracranial hemorrhage, hydrocephalus or extra-axial fluid collection.No areas of brai n edema or evidence of midline shift. The paranasal sinuses and mastoids are clear. The calvarium is intact. IMPRESSION: No acute intracranial abnormality.
--- NOTE | 2021-07-21 07:45 | ER ---
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 Started on dc2 antibiotics on when she saw her PCP. States pain is worse and is now having difficulty swallowing water because of the swelling . CO Dizziness that started on Wednesday , began with nausea on . Coronavirus screen: Vaccine status: Patient reports receiving the 2nd dose of the covid vaccine. Client denies travel out of the [place] in the last 14 days. At this time, the client does not indicate any symptoms associated with coronavirus-19. The client reports previous COVID testing was negative. Ebola Screen: Patient negative for fever greater than or equal to 101.5 degrees Fahrenheit, and additional compatible Ebola Virus Disease symptoms Patient denies exposure to infectious person. Patient denies travel to an Ebola-affected area in the 21 days before illness onset. No symptoms or risks identified at this time. Initial Sepsis Screen: Does the patient meet any 2 criteria? No. Patient's initial sepsis screen is negative. Does the patient have a suspected source of infection? No. Patient's initial sepsis screen is negative. Risk Assessment: Do you want to hurt yourself or someone else? Patient reports no desire to harm self or others. Onset of symptoms was June 20, 2021. 05:48 Method Of Arrival: Ambulatory dc2 05:48 Acuity: TRISTON 3 dc2 Triage Assessment: 05:54 General: Appears uncomfortable, slender, well groomed, well developed, Behavior is dc2 cooperative, anxious. Pain: Complains of pain in Right side of face. EENT: Right ear is red, and some swelling is noted to the right face . Historical: - Allergies: 06:00 HYDROCODONE; dc2 - PMHx: 06:00 Crohn's; Hyperlipidemia; Migraines; dc2 - Immunization history:: Adult Immunizations up to date, Client reports receiving the 2nd dose of the Covid vaccine, Last tetanus immunization: up to date Flu vaccine is up to date. - Social history:: Smoking status: Patient denies any tobacco usage or history of. Patient/guardian denies using alcohol, street drugs, IV drugs. - Code Status:: Full code. Screenin:00 Abuse screen: Denies threats or abuse. Denies injuries from another. Nutritional dc2 screening: No deficits noted. Tuberculosis screening: No symptoms or risk factors identified. Never had TB. Possible symptoms: None. Fall Risk None identified. No fall in past 12 months (0 pts). Secondary diagnosis (15 points) No IV (0 pts). Ambulatory Aid- None/Bed Rest/Nurse Assist (0 pts). Gait- Weak (10 pts.). Mental Status- Oriented to own ability (0 pts). Total Vazquez Fall Scale indicates Low Risk Score (25-44 pts). Placed close to Nursing Station Frequent Obs/Assesments occuring Family Present and informed to notify staff if they need to leave bedside. Assessment: 06:04 Reassessment: When reach room 4 , pt eyes are extremely watery and states she cannot dc2 close her right eye. ED Provider at bedside. 07:00 Reassessment: RECD REPORT FROM SERENA HATHAWAY. 70YO WF P/W R EAR PAIN AND R THORNE'S PALSY. bp VESICULAR RASH NOTED TO R AURICLE. CT RESULTS PENDING. 08:00 Reassessment: PT D/C HOME VIA W/C WITH FAMILY, DX WITH ZOSTER AND THORNE'S PALSY. bp Vital Signs: 05:48 BP 126 / 64; Pulse 82; Resp 17; Temp 98.3; Pulse Ox 100% on R/A; Weight 61.23 kg; dc2 Height 5 ft. 2 in. (157.48 cm); Pain 10/10; 07:00 BP 135 / 48; Pulse 72; Resp 15; Pulse Ox 99% ; bp 08:00 BP 129 / 54; Pulse 81; Resp 15; Temp 98; Pulse Ox 98% ; bp 05:48 Body Mass Index 24.69 (61.23 kg, 157.48 cm) dc2 ED Course: 05:38 Patient arrived in ED. bp1 05:53 Triage completed. dc2 05:56 Arm band placed on Patient placed. dc2 06:01 [facility] jr8 06:01 Govind West MD is Attending Physician. jr8 06:01 Serena Ghotra, RN is Primary Nurse. bs2 06:29 CT Head Brain wo Cont Sent. bs2 06:29 CBC with Diff Sent. bs2 06:29 Basic Metabolic Panel Sent. bs2 06:37 Patient has correct armband on for positive identification. Placed in gown. Bed in low bs2 position. Call light in reach. Side rails up X 1. lunchroom monitor on. Pulse ox on. NIBP on. Door closed. Warm blanket given. Pillow given. 06:38 Initial lab(s) drawn, by me, sent to lab. EKG done, by ED staff. Inserted saline lock: bs2 20 gauge in left upper arm, using aseptic technique. Blood collected. 06:57 CT Head Brain wo Cont In Process Unspecified. EDMS 07:05 No provider procedures requiring assistance completed. bs2 07:12 Primary Nurse role handed off by Serena Ghotra, RN bp 07:12 Socrates Mendoza, MAG is Primary Nurse. bp 07:44 Reza Cassidy MD is Referral Physician. jr8 08:00 IV discontinued, intact, bleeding controlled, No redness/swelling at site. Pressure bp dressing applied. Administered Medications: 06:30 Not Given (Physician Discretion): predniSONE 60 mg PO once jr8 06:37 Drug: Zofran (Ondansetron) 4 mg Route: IVP; Site: left upper arm; bs2 07:11 Follow up: Response: No adverse reaction bp 06:37 Drug: SOLU-Medrol (methylPrednisoLONE) 125 mg Route: IVP; Site: left upper arm; bs2 07:12 Follow up: Response: No adverse reaction bp 06:37 Drug: NS 0.9% 500 ml Route: IV; Rate: bolus; Site: left upper arm; bs2 08:02 Follow up: IV Status: Completed infusion; IV Intake: 500ml bp 07:05 Drug: Acyclovir 800 mg Route: PO; bs2 07:11 Follow up: Response: No adverse reaction bp 07:15 Drug: fentaNYL (PF) 50 mcg Route: IVP; Site: left antecubital; bp 08:00 Follow up: Response: Pain is decreased bp Intake: 08:02 IV: 500ml; Total: 500ml. bp Outcome: 07:45 Discharge ordered by . jr8 08:00 Discharged to home via wheelchair, with family. bp 08:00 Condition: stable 08:00 Discharge instructions given to patient, family, Instructed on discharge instructions, follow up and referral plans. medication usage, Demonstrated understanding of instructions, follow-up care, medications, Prescriptions given X 3. 08:10 Patient left the ED. bp Signatures: Dispatcher [employer] EDMS Toby High PA PA jr8 Socrates Mendoza, RN RN bp Kirsty Payne [facility] Serena Ghotra, RN RN bs2 Debbie Morejon RN RN dc2
--- NOTE | 2021-07-21 07:46 | EDPHYS ---
Physician Documentation [facility] Name: Erma Lara Age: 70 yrs Sex: Female : 1950 Arrival Date: 07/21/2021 Time: 05:38 Bed 3 Private MD: ED Physician Govind West HPI: 07/21 06:36 This 70 yrs old Female presents to ER via Ambulatory with complaints of jr8 Difficulty Swallowing, Throat swelling, Dizziness. 07:04 This is a 70-year-old female that presented to the emergency room with difficulty jr8 swallowing and facial drooping that started this morning. Patient stated that this past she started with excruciating right ear pain. Had seen her primary care physician and said that she looked like she had an infected external canal. Was put on oral antibiotics. Patient stated that she is also had headaches that have been persistent with the ear pain. Came to the emergency room this morning after they noticed that she was having facial drooping and cannot close her eye.. Historical: - Allergies: 06:00 HYDROCODONE; dc2 - PMHx: 06:00 Crohn's; Hyperlipidemia; Migraines; dc2 - Immunization history:: Adult Immunizations up to date, Client reports receiving the 2nd dose of the Covid vaccine, Last tetanus immunization: up to date Flu vaccine is up to date. - Social history:: Smoking status: Patient denies any tobacco usage or history of. Patient/guardian denies using alcohol, street drugs, IV drugs. - Code Status:: Full code. ROS: 06:36 Eyes: Negative for injury, pain, redness, and discharge, Neck: Negative for injury, jr8 pain, and swelling, Cardiovascular: Negative for chest pain, palpitations, and edema, Respiratory: Negative for shortness of breath, cough, wheezing, and pleuritic chest pain, Abdomen/GI: Negative for abdominal pain, nausea, vomiting, diarrhea, and constipation, Back: Negative for injury and pain, MS/Extremity: Negative for injury and deformity, Skin: Negative for injury, rash, and discoloration. 06:36 ENT: Positive for difficulty swallowing, ear pain, Negative for drainage from ear(s), rhinorrhea, sinus congestion, sinus pain, sore throat, difficulty handling secretions, hoarseness. 06:36 Neuro: Positive for headache. Exam: 06:31 Eyes: Pupils equal round and reactive to light, extra-ocular motions intact. Lids and jr8 lashes normal. Conjunctiva and sclera are non-icteric and not injected. Cornea within normal limits. Periorbital areas with no swelling, redness, or edema. ENT: Nares patent. No nasal discharge, no septal abnormalities noted. External auditory canal swollen and with erythema right side. Vesicles noted to the canal as well on right side. TMs within normal limits oropharynx with no redness, swelling, or masses, exudates, or evidence of obstruction, uvula midline. Mucous membranes moist. Neck: Trachea midline, no thyromegaly or masses palpated, and no cervical lymphadenopathy. Supple, full range of motion without nuchal rigidity, or vertebral point tenderness. No Meningismus. Cardiovascular: Regular rate and rhythm with a normal S1 and S2. No gallops, murmurs, or rubs. Normal PMI, no JVD. No pulse deficits. Respiratory: Lungs have equal breath sounds bilaterally, clear to auscultation and percussion. No rales, rhonchi or wheezes noted. No increased work of breathing, no retractions or nasal flaring. Abdomen/GI: Soft, non-tender, with normal bowel sounds. No distension or tympany. No guarding or rebound. No evidence of tenderness throughout. Skin: Warm, dry with normal turgor. Normal color with no rashes, no lesions, and no evidence of cellulitis. MS/ Extremity: Pulses equal, no cyanosis. Neurovascular intact. Full, normal range of motion. 06:31 ECG was reviewed by the Attending Physician. 06:31 Neuro: Orientation: to person, place, time \T\ situation. Mentation: is normal, Memory: is normal, immediate memory is intact, recent memory is intact, remote memory is intact, Cranial nerves: normal except CN VII palsy, visual simeon are intact. extraocular movements are intact, facial droop noted on right, with forehead involved. decreased ocular muscle tone in the right eye, Speech is clear and appropriate. Tongue strength is normal, Cerebellar function: normal finger to nose testing, heel to quesada testing is normal, Motor: moves all fours, Sensation: no obvious gross deficits, seizure activity, is not displayed by the patient, Abnormal movements: there are no abnormal movements. Vital Signs: 05:48 BP 126 / 64; Pulse 82; Resp 17; Temp 98.3; Pulse Ox 100% on R/A; Weight 61.23 kg; dc2 Height 5 ft. 2 in. (157.48 cm); Pain 10/10; 07:00 BP 135 / 48; Pulse 72; Resp 15; Pulse Ox 99% ; bp 08:00 BP 129 / 54; Pulse 81; Resp 15; Temp 98; Pulse Ox 98% ; bp 05:48 Body Mass Index 24.69 (61.23 kg, 157.48 cm) dc2 MDM: 06:02 Patient medically screened. jr8 07:43 Data reviewed: vital signs, nurses notes, lab test result(s), radiologic studies, CT jr8 scan. Data interpreted: Pulse oximetry: on room air is 99 %. Interpretation: normal. Counseling: I had a detailed discussion with the patient and/or guardian regarding: the historical points, exam findings, and any diagnostic results supporting the discharge/admit diagnosis, lab results, radiology results, the need for outpatient follow up, a family practitioner, a neurologist, to return to the emergency department if symptoms worsen or persist or if there are any questions or concerns that arise at home. ED course: Discussed with patient and family that the lesions in her right external auditory canal are consistent with zoster-like viral infection. 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 We will start patient on antivirals and steroids. Needs to follow-up with neurology and primary care. If she were to have any worsening of symptoms to immediately come back for further evaluation. Family and patient are good with the plan at this time. Patient's pain is better controlled. We will also send her home on pain medicine.. 07/21 06:17 Order name: CBC with Diff; Complete Time: 07: jr8 07/21 06: Order name: Basic Metabolic Panel; Complete Time: : jr8 07/21 06: Order name: CT Head Brain wo Cont; Complete Time: : jr8 EC:31 Rate is 78 beats/min. Rhythm is regular, Normal Sinus Rhythm. QRS [place] is Normal. [place] jr8 interval is normal at 196 msec. QRS interval is normal at 82 msec. QT interval is normal at 451 msec. No Q waves. T waves are Inverted in leads aVL, V1, V2. No ST changes noted. Clinical impression: NSR w/ Non-specific ST/T Changes. Interpreted by me. Reviewed by me. Administered Medications: 06:30 Not Given (Physician Discretion): predniSONE 60 mg PO once jr8 06:37 Drug: Zofran (Ondansetron) 4 mg Route: IVP; Site: left upper arm; bs2 07:11 Follow up: Response: No adverse reaction bp 06:37 Drug: SOLU-Medrol (methylPrednisoLONE) 125 mg Route: IVP; Site: left upper arm; bs2 07:12 Follow up: Response: No adverse reaction bp 06:37 Drug: NS 0.9% 500 ml Route: IV; Rate: bolus; Site: left upper arm; bs2 08:02 Follow up: IV Status: Completed infusion; IV Intake: 500ml bp 07:05 Drug: Acyclovir 800 mg Route: PO; bs2 07:11 Follow up: Response: No adverse reaction bp 07:15 Drug: fentaNYL (PF) 50 mcg Route: IVP; Site: left antecubital; bp 08:00 Follow up: Response: Pain is decreased bp Disposition Summary: 07/21/21 07:45 Discharge Ordered Location: Home jr8 Problem: new jr8 Symptoms: have improved jr8 Condition: Stable jr8 Diagnosis - Zoster without complications jr8 - Thorne's palsy jr8 Followup: jr8 - With: Reza Cassidy MD - When: 5 - 6 days - Reason: Recheck today's complaints, Continuance of care, Re-evaluation by your physician Discharge Instructions: - Discharge Summary Sheet jr8 - Thorne Palsy, Adult jr8 - Shingles jr8 Forms: - Medication Reconciliation Form jr8 - Thank You Letter jr8 - Antibiotic Education jr8 - Prescription Opioid Use jr8 Prescriptions: - Prednisone 20 mg Oral Tablet - take 3 tablets by ORAL route once daily for 5 days; 15 tablet; Refills: 0, jr8 Product Selection Permitted - Acyclovir 800 mg Oral Tablet - take 1 tablet by ORAL route 5 times per day for 7 days; 35 tablet; Refills: 0, jr8 Product Selection Permitted - Tylenol-Codeine #3 300 mg-30 mg Oral - take 2 tablet by ORAL route every 6-8 hours As needed; 20 tablet; Refills: 0, jr8 Product Selection Permitted Signatures: Dispatcher [employer] EDToby Kerr PA PA jr8 Socrates Mendoza, RN RN bp Serena Ghotra, RN RN bs2 Debbie Morejon, RN RN dc2
[2021-07-21] MEDS ORDERED: FENTANYL CITR 100 MCG/2 ML ONE (07:52)
[2021-07-21 08:19] VITALS: BP 129/54; TEMP 98; O2SAT 98
== END 2021-07-21 08:10 | disposition home or self-care (01) ==
LOC: ER 05:34
DX: G51.0 Bell's palsy (principal); B02.9 Zoster without complications; Z88.5 Allergy status to narcotic agent
CPT/HCPCS: 93005; 85025; 80048; 36415; 70450; 99284; J1200; J3010; J7040; J2930; J2405; J7512

== ENCOUNTER 2021-07-22 11:41 | Inpatient (IN) | payer OTHER ==
[2021-07-22] MEDS ORDERED: ACETAMINOPHEN 325 MG TABLET PO PRN (14:00)
[2021-07-22] MEDS ORDERED: LOPERAMIDE HCL 2 MG CAPSULE PO PRN (14:00)
[2021-07-22] MEDS ORDERED: POLYETHYL GLY 3350 17 GM/DOSE PO PRN (14:00)
[2021-07-22 14:01] VITALS: BMI 25.4
[2021-07-22] MEDS: ONDANSETRON 4 MG (ODT) TAB PO PRN ×2 (15:00→23:30)
--- NOTE | 2021-07-22 15:28 | RAD REPORT ---
EXAM DESCRIPTION: RAD - Chest Pa And Lat (2 Views) - 07/22/2021 2:59 pm CLINICAL HISTORY: n/v, intractable shingles pain COMPARISON: Chest Pa And Lat (2 Views) dated 07/18/2020; Chest Pa And Lat (2 Views) dated 03/21/2020; Chest Pa And Lat (2 Views) dated 05/12/2019; CHEST SINGLE VIEW dated 11/19/2015 FINDINGS: Lines: None. Lungs: No evidence of edema or pneumonia. Pleural: No significant pleural effusions or pneumothorax. Cardiac: The heart size is within normal limits. Bones: No acute fractures. Other: IMPRESSION: No acute cardiopulmonary disease.
[2021-07-22] MEDS: NACHLORIDE 0.45% 1,000 ML IV SCH (16:11)
[2021-07-22] MEDS: HYDROMORPHONE HCL 1 MG/ML INJ IV PRN ×2 (16:12→20:02)
[2021-07-22] MEDS: METHYLPREDNISOLONE 40 MG INJ IV SCH ×2 (16:22→20:01)
[2021-07-22 16:35] LABS: Absolute Lymphocytes (CBC) 2.2 K/uL (0.7-4.9); Basophils % 0.8 % (0-1.3); Lymphocytes % 21.2 % (15.3-44.8); MPV 8.4 fL (7.6-11.3); RBC Red Blood Cell Count 4.92 M/uL (3.86-4.86)
[2021-07-22 16:37] LABS: Protime INR 1.02
[2021-07-22 16:59] LABS: Albumin 4.4 g/dL (3.4-5.0); Bilirubin Direct 0.1 mg/dL (0-0.2); Bilirubin Total 0.3 mg/dL (0.2-1.0); Magnesium 2.3 mg/dL (1.8-2.4); Phosphorus 3.1 mg/dL (2.5-4.9); Potassium 4.7 mmol/L (3.5-5.1); Protein, Total 8.2 g/dL (6.4-8.2); Thyroid Stimulating Hormone 1.2 uIU/mL (0.360-3.740)
[2021-07-22] MEDS: ACYCLOVIR INJ 400 MG in NA CHLORIDE 0.9% 100 ML IVPB SCH (17:44)
[2021-07-22] MEDS: PREGABALIN 50 MG CAP PO SCH (20:01)
[2021-07-22] MEDS: ONDANSETRON 4 MG/2 ML VIAL IV PRN (20:02)
[2021-07-22 20:47] LABS: Urine Bacteria 20-50 /HPF (<20); Urine Mucus 1+ /HPF (NONE SEEN); Urine RBC <5 /HPF (NONE SEEN)
[2021-07-22] MEDS: MECLIZINE HCL 25 MG PO SCH (21:00)
[2021-07-22] MEDS: TIZANIDINE 4 MG TABLET PO SCH (21:30)
[2021-07-22] MEDS: DIPHENHYDRAMINE 25 MG TAB/CAP PO PRN (23:30)
[2021-07-23] MEDS: METHYLPREDNISOLONE 40 MG INJ IV SCH ×4 (01:19→17:07)
[2021-07-23] MEDS: ACYCLOVIR INJ 400 MG in NA CHLORIDE 0.9% 100 ML IVPB SCH ×3 (01:20→17:07)
[2021-07-23] MEDS: HYDROMORPHONE HCL 1 MG/ML INJ IV PRN ×5 (01:23→21:36)
[2021-07-23] MEDS: ONDANSETRON 4 MG/2 ML VIAL IV PRN ×2 (01:24→17:07)
[2021-07-23] MEDS: NACHLORIDE 0.45% 1,000 ML IV SCH ×2 (03:47→11:32)
[2021-07-23 04:22] LABS: Absolute Lymphocytes (CBC) 1.2 K/uL (0.7-4.9); Basophils % 0.2 % (0-1.3); Lymphocytes % 13.1 % (15.3-44.8); MPV 8.1 fL (7.6-11.3); RBC Red Blood Cell Count 4.35 M/uL (3.86-4.86)
[2021-07-23 04:30] LABS: Potassium 4.4 mmol/L (3.5-5.1)
[2021-07-23] MEDS: ONDANSETRON 4 MG (ODT) TAB PO PRN ×2 (06:13→11:32)
[2021-07-23 06:42] LABS: Blood Morphology Comment NOT SEEN (NOT SEEN); Platelet Estimate ADEQ
[2021-07-23] MEDS: PREGABALIN 50 MG CAP PO SCH ×2 (08:34→21:35)
[2021-07-23] MEDS: PANTOPRAZOLE 40MG TABLET PO SCH (08:34)
[2021-07-23] MEDS: FOLIC ACID 1 MG TABLET PO SCH (08:34)
[2021-07-23] MEDS ORDERED: ENOXAPARIN 40 MG/0.4 ML SQ SCH (09:00)
[2021-07-23] MEDS: MECLIZINE HCL 25 MG PO SCH ×3 (09:00→21:33)
--- NOTE | 2021-07-23 18:00 | P.PN ---
Subjective Date of Service: 07/23/21 Chief Complaint: SEVERE PAIN R EAR AND FACE Subjective: Improving SHE IS BETTER WHEN SHE GETS PAIN MEDS IV. STILL PAIN I SEVERE. Review of Systems 10-point ROS is otherwise unremarkable General: Weakness, Malaise Neurological: Other, As per HPI Physical Examination - Vital Signs Temperature: 98.3 F Blood Pressure: 147/67 Pulse: 84 Respirations: 16 Pulse Ox (%): 94 - Physical Exam General: Oriented x3, Moderate distress, Severe distress HEENT: Atraumatic, PERRLA, EOMI Neck: Supple, JVD not distended Respiratory: Clear to auscultation bilaterally, Normal air movement Cardiovascular: Regular rate/rhythm, Normal S1 S2 Gastrointestinal: Normal bowel sounds, No tenderness Musculoskeletal: No tenderness Integumentary: No rashes Neurological: Normal speech, Normal tone, Normal affect, Other (R INFRANUCLEAR 7TH PALSY. AURICULAR SHINGLES. ) Lymphatics: No axilla or inguinal lymphadenopathy - Studies Laboratory Data (last 24 hrs) 07/23/21 03:24: Sodium 137, Potassium 4.4, BUN 26 H, Creatinine 0.90, Glucose 119 H, Magnesium 2.0 07/23/21 03:24: WBC 9.20, Hgb 12.9, Hct 39.0, Plt Count 293 Medications List Reviewed: Yes Assessment And Plan - Current Problems (Diagnosis) (1) Intractable pain Current Visit: Yes Status: Acute Plan: IV MEDS. ZOFRAN IV START DURAGESIC PATCH FOR HOME CONTINUATION. HER PAIN WILL BE SENIOR LIVING WITH INTESITY OF PAIN SHE HAS. (2) HZV (herpes zoster virus) post herpetic neuralgia Current Visit: Yes Status: Acute
[2021-07-23] MEDS ORDERED: FENTANYL 25 MCG/PATCH TD SCH (19:00)
[2021-07-23] MEDS: DIPHENHYDRAMINE 25 MG TAB/CAP PO PRN (21:33)
[2021-07-23] MEDS: TIZANIDINE 4 MG TABLET PO SCH (21:35)
[2021-07-24] MEDS: ACYCLOVIR INJ 400 MG in NA CHLORIDE 0.9% 100 ML IVPB SCH ×3 (00:03→17:12)
[2021-07-24] MEDS: METHYLPREDNISOLONE 40 MG INJ IV SCH ×4 (00:03→17:10)
[2021-07-24] MEDS: HYDROMORPHONE HCL 1 MG/ML INJ IV PRN ×3 (01:30→20:49)
[2021-07-24] MEDS: NACHLORIDE 0.45% 1,000 ML IV SCH ×3 (01:34→16:45)
[2021-07-24 04:04] LABS: Basophils % 0.3 % (0-1.3); Hematocrit 37.6 % (36.0-45.0); Lymphocytes % 8.3 % (15.3-44.8); MPV 7.9 fL (7.6-11.3); RBC Red Blood Cell Count 4.23 M/uL (3.86-4.86)
[2021-07-24 04:29] LABS: Magnesium 2.3 mg/dL (1.8-2.4); Potassium 5.1 mmol/L (3.5-5.1)
[2021-07-24] MEDS: FOLIC ACID 1 MG TABLET PO SCH (07:42)
[2021-07-24] MEDS: MECLIZINE HCL 25 MG PO SCH ×3 (07:43→20:47)
[2021-07-24] MEDS: PANTOPRAZOLE 40MG TABLET PO SCH (07:43)
[2021-07-24] MEDS: SOLIFENACIN 10 MG PO SCH (07:43)
[2021-07-24] MEDS: PREGABALIN 50 MG CAP PO SCH ×2 (07:43→20:47)
[2021-07-24] MEDS: MONTELUKAST SOD 10 MG TABLET PO SCH (07:44)
[2021-07-24] MEDS: ONDANSETRON 4 MG/2 ML VIAL IV PRN (07:57)
[2021-07-24] MEDS: ONDANSETRON 4 MG (ODT) TAB PO PRN (11:56)
[2021-07-24] MEDS: TIZANIDINE 4 MG TABLET PO SCH (20:47)
[2021-07-24] MEDS: Rizatriptan Benzoate [Rizatriptan] 10 MG Tablet PO SCH (21:00)
[2021-07-24] MEDS: DIPHENHYDRAMINE 25 MG TAB/CAP PO PRN (21:26)
--- NOTE | 2021-07-24 21:28 | P.PN ---
Subjective Date of Service: 07/24/21 Chief Complaint: SEVERE PAIN R EAR AND FACE Subjective: Improving SHE IS BETTER WHEN SHE GETS PAIN MEDS IV. STILL PAIN I SEVERE. SHE IS ABLE TO EAT, TOLERATE FOOD NOW. Physical Examination - Vital Signs Temperature: 97.8 F Blood Pressure: 150/56 Pulse: 85 Respirations: 16 Pulse Ox (%): 95 - Physical Exam General: Mild distress HEENT: Atraumatic, PERRLA, EOMI Neck: Supple, JVD not distended Respiratory: Clear to auscultation bilaterally, Normal air movement Cardiovascular: Regular rate/rhythm, Normal S1 S2 Gastrointestinal: Normal bowel sounds, No tenderness Musculoskeletal: No tenderness Integumentary: No rashes Neurological: Normal speech, Normal tone, Normal affect, Other, Abnormal cranial nerve function (R FACIAL PALSY,INFRANUCLEAR.) Lymphatics: No axilla or inguinal lymphadenopathy - Studies Laboratory Data (last 24 hrs) 07/24/21 03:57: Sodium 136, Potassium 5.1, BUN 24 H, Creatinine 0.97, Glucose 168 H, Magnesium 2.3 07/24/21 03:57: WBC 12.00 H D, Hgb 12.5, Hct 37.6, Plt Count 315 Medications List Reviewed: Yes Assessment And Plan - Current Problems (Diagnosis) (1) Intractable pain Current Visit: Yes Status: Acute Plan: IV MEDS. ZOFRAN IV START DURAGESIC PATCH FOR HOME CONTINUATION. HER PAIN WILL BE [facility] WITH INTESITY OF PAIN SHE HAS. PATCH SHOULD WORK FOR HER. WILL TRY TO DC HER IN AM. (2) HZV (herpes zoster virus) post herpetic neuralgia Current Visit: Yes Status: Acute
[2021-07-25] MEDS: METHYLPREDNISOLONE 40 MG INJ IV SCH ×3 (00:52→12:16)
[2021-07-25] MEDS: ACYCLOVIR INJ 400 MG in NA CHLORIDE 0.9% 100 ML IVPB SCH ×2 (00:52→08:59)
[2021-07-25 01:39] VITALS: TEMP 97
[2021-07-25 06:37] LABS: Absolute Lymphocytes (CBC) 0.9 K/uL (0.7-4.9); Basophils % 0.5 % (0-1.3); Hematocrit 38.9 % (36.0-45.0); Lymphocytes % 8.3 % (15.3-44.8); MPV 8.3 fL (7.6-11.3); RBC Red Blood Cell Count 4.38 M/uL (3.86-4.86)
[2021-07-25 06:41] LABS: Magnesium 2.3 mg/dL (1.8-2.4); Potassium 4.6 mmol/L (3.5-5.1)
[2021-07-25 08:42] VITALS: BP 165/72
[2021-07-25] MEDS: PANTOPRAZOLE 40MG TABLET PO SCH (08:54)
[2021-07-25] MEDS: NACHLORIDE 0.45% 1,000 ML IV SCH (08:54)
[2021-07-25] MEDS: FOLIC ACID 1 MG TABLET PO SCH (08:57)
[2021-07-25] MEDS: PREGABALIN 50 MG CAP PO SCH (08:57)
[2021-07-25] MEDS: MECLIZINE HCL 25 MG PO SCH ×2 (08:58→14:13)
[2021-07-25] MEDS: SOLIFENACIN 10 MG PO SCH (08:58)
[2021-07-25] MEDS: Rizatriptan Benzoate [Rizatriptan] 10 MG Tablet PO SCH (09:00)
[2021-07-25] MEDS: MONTELUKAST SOD 10 MG TABLET PO SCH (09:01)
[2021-07-25 09:09] VITALS: O2SAT 91
[2021-07-25 11:17] LABS: Urine Appearance CLEAR (Clear); Urine Bilirubin NEGATIVE (Negative); Urine Blood NEGATIVE (Negative); Urine Color YELLOW (Yellow); Urine Glucose 1+ (Negative); Urine Protein NEGATIVE (Negative); Urine pH 6.5 (5.0-7.0)
[2021-07-25 11:36] LABS: Urine Bacteria LOADED /HPF (<20); Urine RBC NONE SEEN /HPF (NONE SEEN)
[2021-07-25] MEDS: HYDROMORPHONE HCL 1 MG/ML INJ IV PRN (12:16)
--- NOTE | 2021-07-25 21:17 | P.DS ---
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 SHE HAD INTRACTABLE PAIN WITH VOMITING. I HAD TO ADMIT HER TO HYDRATE AND CONTROL PAIN. SHE IS MUCH IMPROVED. HOPEFULLY SHE WILL HAS RESOLUTION OF PALSY. I GAVE HER STEROIDS AND VALTREX IN ADDITION TO LYRICA AND DURAGESIC FOR PAIN CONTROL. SHE WILL FU IN OFFICE. I CALLED IN RX FROM OFFICE. Vital Signs/Physical Exam: Temp Pulse Resp BP Pulse Ox 97 F 59 18 165/72 H 93 07/25/21 08:00 07/25/21 08:00 07/25/21 12:46 07/25/21 08:00 07/25/21 12:46 Laboratory Data at Discharge: WBC 11.20 K/uL (4.3-10.9) H 07/25/21 06:07 Hgb 12.7 g/dL (12.0-15.0) 07/25/21 06:07 Hct 38.9 % (36.0-45.0) 07/25/21 06:07 Plt Count 294 K/uL (152-406) 07/25/21 06:07 PT 11.7 SECONDS (9.5-12.5) 07/22/21 16:03 INR 1.02 07/22/21 16:03 APTT 29.7 SECONDS (24.3-36.9) 07/22/21 16:03 Sodium 139 mmol/L (136-145) 07/25/21 06:07 Potassium 4.6 mmol/L (3.5-5.1) 07/25/21 06:07 BUN 22 mg/dL (7-18) H 07/25/21 06:07 Creatinine 0.86 mg/dL (0.55-1.3) 07/25/21 06:07 Glucose 161 mg/dL (74-106) H 07/25/21 06:07 Phosphorus 3.1 mg/dL (2.5-4.9) 07/22/21 16:03 Magnesium 2.3 mg/dL (1.8-2.4) 07/25/21 06:07 Total Bilirubin 0.3 mg/dL (0.2-1.0) 07/22/21 16:03 AST 17 U/L (15-37) 07/22/21 16:03 ALT 21 U/L (12-78) 07/22/21 16:03 Alkaline Phosphatase 53 U/L (45-117) 07/22/21 16:03 Home Medications: Estradiol [Estrace] 1 mg PO DAILY 07/22/21 Fenofibrate,Micronized [Fenofibrate] 1 mg PO DAILY 07/22/21 Folic Acid 1 mg PO DAILY 07/22/21 Meclizine HCl 1 tab PO TID 07/22/21 Methotrexate Inj [Methotrexate Sodium Inj*] 0.5 mg IJ EVERY 7TH DAY 07/22/21 Montelukast [Singulair] 1 mg PO DAILY 07/22/21 Pantoprazole [Protonix Tab*] 40 mg PO DAILY 07/22/21 Rizatriptan Benzoate [Rizatriptan] 1 mg PO Q4HR PRN 07/22/21 Solifenacin [Vesicare] 10 mg PO DAILY 07/22/21 Tizanidine [Zanaflex] 4 mg PO BEDTIME 07/22/21 Followup: Reza Cassidy MD [ACTIVE - CAN ADMIT] - 1 Week (Call to schedule an appointment)
== END 2021-07-25 15:23 | disposition home or self-care (01) | DRG 74 ==
LOC: 4TH 11:41 → OBSVTOIN 07-23 14:25
PROVIDERS: ADMIT Internal Medicine; ATTEND Internal Medicine
DX: B02.29 Other postherpetic nervous system involvement (principal); H92.01 Otalgia, right ear; G50.1 Atypical facial pain; G58.9 Mononeuropathy, unspecified; B02.21 Postherpetic geniculate ganglionitis
CPT/HCPCS: 36415; 70450; 71046; 80048; 80076; 81001; 81015; 82306; 82607; 83735; 84100; 84443; 85025; 85610; 85730; 87077; 87086; 87088; 87186; 93005; 99284; G0378; J0133; J1170; J1200; J2405; J2920; J2930; J3010; J7040; J7512

== ENCOUNTER 2022-09-17 20:04 | Observation (INO) | payer OTHER ==
--- OUTSIDE RECORDS SUMMARY | 2022-09-17 20:08 | XMS REPORT | Clinical Summary ---
:1950 Author Organization [facility] Address [address] [place] [address] Care Team Providers Name Role Phone Hugo Rich MD Unavailable Koko Krause MD Unavailable Steve Soriano MD Unavailable Ish Oviedo MD Primary Care Provider Reza Cassidy MD Unavailable [phone] Allergies Active Allergy Reactions Severity Noted Date Comments Destiny Anderson 07/13/2016 Other reaction( s): Itching/Hives/Rash Medications Medication Sig Dispensed Refills Start Date End Date Status aspirin 81 mg EC AT BEDTIME 0 11/19/2015 A ctive tablet estradioL (ESTRACE) TAKE 1 TABLET BY 0 07/02/2020 Active 0.5 mg tablet MOUTH EVERY DAY fenofibrate TAKE 1 CAPSULE BY 0 09/19/2020 Active micronized (LOFIBRA) MOUTH EVERY DAY 67 mg capsule folic acid (FOLVITE) TAKE 1 TABLET BY 0 08/21/2020 Active 1 mg tablet MOUTH EVERY DAY melatonin 3 mg cap 2 tablets. 0 07/20/2019 Active meclizine (ANTIVERT) 3 tablets. 0 11/19/2015 Active 25 mg tablet methotrexate 2.5 mg TAKE 5 TABLETS BY 0 06/21/2020 Active tablet MOUTH WEEKLY 5 TABS ONCE A WEEK magnesium citrate 100 DAILY 0 07/20/2019 Active mg tab montelukast TAKE 1 TABLET BY 0 09/24/2020 Active (SINGULAIR) 10 mg MOUTH EVERY DAY tablet pantoprazole DAILY 0 07/21/2019 Active (PROTONIX) 40 mg EC tablet rizatriptan THREE TIMES DAILY 0 11/19/2015 Active (MAXALT-BOOKING OFFICER) 10 mg NEEDED disintegrating tablet lysine 1,000 mg tab DAILY 0 07/20/2019 Active cyanocobalamin, 1 tablet. 0 07/20/2019 Act александр vitamin B-12, 1,000 mcg cap L. acidophilus/Bifido Take 1 tablet by 0 Active longum (PROBIOTIC mouth daily. PEARLS ORAL) inFLIXimab (REMICADE) Infuse 400 mg 0 Active 100 mg intravenously. injectionIndications: Every 8 Weeks Crohn's disease glucosamine-chondroit Take 1 tablet by 0 Active in 500-400 mg tablet mouth 3 (three) times a day. cholecalciferol, Take 2,000 Units by 0 Active vitamin D3, (VITAMIN mouth. D3) 2,000 units tab tablet docusate sodium Take 100 mg by 0 Active (COLACE) 100 mg mouth. capsule fluticasone Inhale 2 sprays 0 Ac tive propionate (FLONASE) into each nostril 50 mcg/spray nasal daily as needed for spray allergies. fentaNYL (DURAGESIC) 0 07/25/2021 Active patch 25 mcg/hr pregabalin (LYRICA) 0 07/25/2021 Active 50 mg capsule dexamethasone 0 07/25/2021 Activ e (DECADRON) 4 mg tablet acyclovir (ZOVIRAX) TAKE 1 TABLET BY 0 07/21/2021 Active 800 mg tablet MOUTH 5 TIMES A DAY FOR 7 DAYS calcium carb-mag Take by mouth. 0 Active hydrox-simeth 1,200 mg-270 mg -80 mg/10 mL susp fluticasone Inhale 1 puff by 0 A ctive propionate-salmeterol mouth. (ADVAIR) 500 mcg-50 mcg/inhalation diskus inhaler gabapentin TAKE 1 CAPSULE BY 0 05/27/2022 Active (NEURONTIN) 300 mg MOUTH EVERYDAY AT capsule BEDTIME Linzess 290 mcg cap TAKE 1 CAPSULE BY 0 06/17/2022 Active MOUTH EVERY DAY methotrexate, PF, 25 0 06/22/2022 Active mg/mL soln injection omega [id number] Take by mouth. 0 Active oil 1,200 (144-216) mg cap progesterone TAKE 1 CAPSULE BY 0 05/29/2022 Active (PROMETRIUM) 100 MG MOUTH EVERY NIGHT capsule Sutab 1.479-0.188- PLEASE FOLLOW 0 03/15/2022 Active 0.225 gram tab INSTRUCTIONS ON GIVEN BY DR lange 0 06/24/2022 Active (VESICARE) 10 MG tablet tiZANidine (ZANAFLEX) TAKE 1 TABLET BY 0 05/28/2022 Active 4 mg tablet MOUTH EVERY DAY AT BEDTIME NEEDED MAY WORK FOR INSOMNIA Active Problems No known active problems Encounters Date Type Specialty Care Team Description 06/24/2022 Office Visit Orthopaedics Ish Oviedo MD Benign li pomatous neoplasm of ski n and subcutaneous ti ssue of other sites (Pr imary Dx) 06/24/2022 Travel 06/23/2022 Ancillary Procedure Radiology Barbara Hanley ign lipomatous A, [place] neoplasm of ski n and subcutaneous ti ssue of other sites 06/23/2022 Travel after 09/17/2021 Immunizations Name Administration Dates Next Due Pfizer SARS-CoV-2 Vaccination (Purple Cap) 10/29/2020, 02/2021 Surgical History Surgery Date Site/Laterality Comments COLONOSCOPY 08/04/2020 - 09/02/2020 Last one of 4 CHOLECYSTECTOMY UPPER GASTROINTESTINAL ENDOSCOPY 09/03/2019 - 10/03/2019 2nd one Medical History Medical History Date Comments Hyperlipidemia 2017 Migraine 1975 Sinusitis 1990 Gastric reflux 2016 Gastric ulcer 2018 Crohn's disease Diverticulitis Polyp of colon Gallstone 07-22-20 Gallbladder removed Menopause 2006 Uterine leiomyoma 1982 Partial hysterectomy Anemia Blood coagulation disorder Blood transfusion, without reported diagnosis Arthritis Basal cell carcinoma of skin 2013 Left side o f nose Family History Medical History Relation Name Comments Skin cancer Brother Mitch Lodrigjose Ear and shoulder Skin cancer Sister Donice Lodrigue Face Relation Name Status Comments Brother Ray Lodrigue Sister Donchalrette Lodrigue Social History Tobacco Use Types Packs/Day Years Used Date Smoking Tobacco: Never Smokeless Tobacco: Never Alcohol Use Standard Drinks/Week Comments Never 0 (1 standard drink = 0.6 oz pure alcoho l) Sex Assigned at Date Recorded Not on file Job Start Date Occupation Industry Not on file Not on file Not on file Obstetrics History Last Filed Vital Signs Vital Sign Reading Time Taken Comments Blood Pressure 141/82 06/24/2022 12:07 PM CDT Pulse 71 06/24/2022 12:07 PM CDT Temperature 36.5 C (97.7 F) 06/24/2022 12:07 PM CDT Respiratory Rate 16 06/24/2022 12:07 PM CDT Oxygen Saturation - - Inhaled Oxygen Concentration - - Weight 69.7 kg (153 lb 10.6 oz) 06/24/2022 12:09 PM CDT Height - - Body Mass Index 29.01 10/02/2020 10:01 AM [employer]IDENT [employer] Plan of Treatment Date Type Specialty Care Team Description 12/23/2022 Ancillary Procedure Radiology Fred Farfan NP [address] [place], [place] [address] (Wo rk) 12/23/2022 Follow-Up Orthopaedics Ish Oviedo MD [address] [place], [place] [address] (Wo rk) Health Maintenance Due Date Last Done Comments COVID-19 Vaccination (3 - Pfizer risk 11/26/2020 10/29/2020 , 10/08/2020 series) Procedures Procedure Name Priority Date/Time Associated Diagnosis Comme nts MRI PELVIS W WO Routine 06/23/2022 4:36 Benign lipomatous Resu lts for this CONTRAST - PM CDT neoplasm of skin and procedu re are in MUSCULOSKELETAL subcutaneous tissue the r esults of other sites section. 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 Consider follow-up in approximately 6 months to determine if this is a trend that continues. Narrative 06/23/2022 6:24 PM CDT FULL RESULT: Examination: MRI PELVIS W WO CONTRAST - MUSCULOSKELETAL, June 23, 2022 Clinical History: Benign lipomatous neop lasm of skin and subcutaneous tissue of other sites Indication: Assess right anterior hip li ashutosh for interval change Comparison: August 05, 2021 and January 032020 Technique: Multiplanar multisequence mag netic resonance imaging of the pelvis was performed without and with intravenous administration of contrast. Findings: There is a lobulated and septa olimpia, fat-containing mass located anterior to the left femoral neck that extends between the tensor fascia george and rectus femoris muscles. A component of the mass extends medially and distally within th e vastus intermedius muscle. On today's examination, the mass measure s 52 x 38 x 40 mm. 49 x 36 x 34 mm in August 2021. 49 x 34 x 37 mm in January 2021. Subjectively it does not appear larger. The difference in measurements today c ompared with the 2 prior examinations ma y reflect interobserver variability in measurement. I would suggest another follow-up in approximately 6 months. If the lesion again measures larger, that would suggest that may truly be slowly growing. There is again mild enhancement of septa e in the lesion. In particular, a circular area and near the cephalad edge of the mass. Please see arrow on the postcontrast series 8, image 34. This is more cons picuous than on the most recent prior ex amination but has a very similar appearance to that on January 28, 2021. No acute or suspicious focal osseous les ions are identified. Degenerative endplate changes are incidentally noted at L4-L5 with dehydration of other included lumbar disks. There are stable surgical changes of eulalia or hysterectomy. The visualized viscera of the lower abdomen and pelvis are otherwise unremarkable. No enlarged pelvic or inguinal lymph nod es. Procedure Note Mago Gaona MD - 06/23/2022Formatti ng of this note might be different from the original. FULL RESULT: Examination: MRI PELVIS W WO CONTRAST - MUSCULOSKELETAL, June 23, 2022 Clinical History: Benign lipomatous neop lasm of skin and subcutaneous tissue of other sites Indication: Assess right anterior hip li ashutosh for interval change Comparison: August 05, 2021 and January 032020 Technique: Multiplanar multisequence mag netic resonance imaging of the pelvis was performed without and with intravenous administration of contrast. Findings: There is a lobulated and septa olimpia, fat-containing mass located anterior to the left femoral neck that extends between the tensor fascia george and rectus femoris muscles. A component of the mass extends medially and distally within the vastus intermedi us muscle. On today's examination, the mass measure s 52 x 38 x 40 mm. 49 x 36 x 34 mm in August 2021. 49 x 34 x 37 mm in January 2021. Subjectively it does not appear larger. The difference in measurements today compared with the 2 prior examinations may reflect interobse rver variability in measurement. I would suggest another follow-up in approximately 6 months. If the lesion again measures larger, that would suggest that may truly be slowly growing. There is again mild enhancement of septa e in the lesion. In particular, a circular area and near the cephalad edge of the mass. Please see arrow on the postcontrast series 8, image 34. This is more conspicuous than on the most recent prior examination but has a very similar appearance to that on January 28, 2021. No acute or suspicious focal osseous les ions are identified. Degenerative endplate changes are incidentally noted at L4-L5 with dehydration of other included lumbar disks. There are stable surgical changes of eulalia or hysterectomy. The visualized viscera of the lower abdomen and pelvis are otherwise unremarkable. No enlarged pelvic or inguinal lymph nod es. IMPRESSION: The known lipomatous tumor of the left p roximal thigh measures minimally larger than on the most recent prior examinations. Consider follow-up in approximately 6 months to determine if this is a trend that continues. 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
--- OUTSIDE RECORDS SUMMARY | 2022-09-17 20:09 | XMS REPORT | Continuity of Care Document ---
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 Outpatient SOLE BRAULIOMARCO MUÑOZ [facility] 1095 [id number] 14:44:12 14:44:12 BARBARA baird 2022-06-23 2022-06-23 Travel 1.2.840.1 1.2.845.111 0689 092755 Univers 00:00:00 00:00:00 70904.1.1 350.1.13.41 ity of 3.412.2.7 2.2.7.3.698 [place] .3.651631 084.8 MD Duarte [facility] [place] 2022-05-26 2022-05-26 Travel 1.2.840.1 1.2.051.972 1734 212784 Methodi 00:00:00 00:00:[address] 3.430.2.7 0.2.7.3.698 Ho spita .3.867442 084.8 l .8 2022-04-08 2022-04-08 Orders Rhoda Mon 1.2.840.1 [id number] 21 [id number] Methodi 00:00:00 00:00:00 Only Kristan Loco 59091.1.[address] 3.430.2.7 Hospit a .3.788897 l .8 2022-03-18 2022-03-18 [facility] Henry Flores 1.2.840.1 [id number] 21 [id number] Methodi 05:36:00 15:38:00 Encounter Sean 70465.1.1 734 s t 3.430.2.7 Hospit a .3.792064 l .8 2022-03-18 2022-03-18 Surgery Henry Flores 1.2.840.1 [id number] 454 [id number] Methodi 08:00:00 12:45:[address] 3.430.2.7 Hospit a .3.866475 l .8 2022-03-18 2022-03-18 Anesthesia Silviawalter Jamison L. 1.2.840 .1 [id number] Methodi 07:59:00 11:21:00 Event AcaciaAnnmarie quarles 26434.1.[address] 3.430.2.7 Hospit a .3.192179 l .8 2022-03-18 2022-03-18 Travel 1.2.840.1 1.2.531.865 0468 382367 Methodi 00:00:00 00:00:[address] 3.430.2.7 0.2.7.3.698 Ho spita .3.165705 084.8 l .8 2022-03-18 2022-03-18 Inpatient FLORES, [facility] 021 [id number] 35869 [place] 00:00:00 00:00:[address] 2022-03-16 2022-03-16 Travel 1.2.840.1 1.2.025.428 4987 854478 Methodi 00:00:00 00:00:[address] 3.430.2.7 0.2.7.3.698 Ho spita .3.220975 084.8 l .8 2022-03-12 2022-03-12 Telephone Jamie 1.2.840.1 [id number] 2099 [id number] Methodi 00:00:00 00:00:[address] Lara 3.430.2.7 Hospit a .3.939513 l .8 2022-03-11 2022-03-11 Anesthesia Can Queen 1.2.840. 1 [id number] Methodi 18:31:00 18:31:00 Event Christi Pal 24986.1.[address] 3.430.2.7 Hospit a .3.699519 l .8 2022-03-11 2022-03-11 [facility] 1.2.840.1 [id number] 37317 65731 Methodi 06:56:00 17:58:00 Encounter Shyam Adams 33777.1.[address] Juaquin 3.430.2.7 Hospit a .3.960752 l .8 2022-03-11 2022-03-11 Outpatient [facility] 240 [id number] 712 [place] 00:00:00 00:00:00 SHYAM [address] 2022-03-10 2022-03-10 Travel 1.2.840.1 1.2.396.049 6855 091690 Methodi 00:00:00 00:00:[address] 3.430.2.7 0.2.7.3.698 Ho spita .3.956581 084.8 l .8 2022-03-10 2022-03-10 Orders Guillermo 1.2.840.1 [id number] 21 [id number] Methodi 00:00:00 00:00:00 Only my, 10549.1.[address] [place] 3.430.2.7 Hospi ta Koch .3.819310 l .8 2022-03-10 2022-03-10 Orders Alagugurusa 1.2.840.1 [id number] 21 [id number] Methodi 00:00:00 00:00:00 Only bentley, 37491.1.[address] [place] 3.430.2.7 Hospi ta Koch .3.244358 l .8 2022-02-26 2022-02-26 Hospital Henry Flores 1.2.840.1 [id number] 21 [id number] Methodi 12:33:47 23:59:00 Encounter Sean 73464.1.1 293 s t 3.430.2.7 Hospit a .3.356758 l .8 2022-02-26 2022-02-26 Travel 1.2.840.1 1.2.614.817 8621 966823 Methodi 00:00:00 00:00:[address] 3.430.2.7 0.2.7.3.698 Ho spita .3.950305 084.8 l .8 2022-02-26 2022-02-26 Outpatient TAMEKA FLORESIC [facility] [id number] [place] 00:00:00 00:00:[address] 2022-02-05 2022-02-05 Orders Alajatinjatinrusa 1.2.840.1 [id number] 21 [id number] Methodi 00:00:00 00:00:00 Only bentley, 15827.1.[address] [place] 3.430.2.7 Hospi ta Koch .3.553819 l .8 2022-01-01 2022-01-01 [facility] 1.2.840.1 [id number] 2 [id number] Methodi 11:17:09 23:59:00 Encounter bentley, 33005.1.[address] [place] 3.430.2.7 Hospi ta Koch .3.950533 l .8 2022-01-01 2022-01-01 Travel 1.2.840.1 1.2.933.230 2527 045002 Methodi 00:00:00 00:00:[address] 3.430.2.7 0.2.7.3.698 Ho spita .3.967298 084.8 l .8 2022-01-01 2022-01-01 [facility] [id number] [place] 00:00:00 00:00:00 MY, [address] 2021-12-29 2021-12-29 Travel 1.2.840.1 1.2.796.040 8609 982299 Methodi 00:00:00 00:00:[address] 3.430.2.7 0.2.7.3.698 Ho spita .3.061829 084.8 l .8 2021-12-29 2021-12-29 [facility] 1.2.840.1 [id number] Methodi 00:00:00 00:00:00 ion my, 25073.1.[address] [place] 3.430.2.7 Hospi ta Koch .3.861254 l .8 2021-12-22 2021-12-22 Telephone Kimi, 1.2.840.1 [id number] 178 [id number] Methodi 00:00:00 00:00:[address] 3.430.2.7 Hospit a .3.950365 l .8 2021-12-19 2021-12-19 Orders Karlie, 1.2.840.1 [id number] 21 [id number] Methodi 00:00:00 00:00:00 Only Angelina 17753.1.[address] 3.430.2.7 Hospit a .3.554077 l .8 2021-12-19 2021-12-19 Outpatient [facility] [id number] 0156 [place] 00:00:00 00:00:00 BINCY [address] 2021-12-11 2021-12-11 Outpatient [facility] [id number] 3983 [place] 00:00:00 00:00:00 BINCY [address] 2021-12-10 2021-12-10 Orders Bee, 1.2.840.1 [id number] 537066 7257 Methodi 00:00:00 00:00:00 Only Giovanni 78706.1.[address] 3.430.2.7 Hospit a .3.819456 l .8 2021-12-05 2021-12-05 Office Montez, 1.2.840.1 [id number] 2099822 Methodi 08:30:00 16:36:51 Visit Abhijit Bermudez 99803.1.1 756 s t 3.430.2.7 Hospit a .3.839987 l .8 2021-12-05 2021-12-05 Travel 1.2.840.1 1.2.646.097 7996 004430 Methodi 00:00:00 00:00:[address] 3.430.2.7 0.2.7.3.698 Ho spita .3.438641 084.8 l .8 2021-12-05 2021-12-05 Outpatient [facility]REPLACED [facility] [place] 00:00:00 00:00:00 ABHIJIT [address] 2021-12-01 2021-12-01 Orders Carol, 1.2.840.1 [id number] Methodi 00:00:00 00:00:00 Only Genna 42378.1.[address] 3.430.2.7 Hospit a .3.366653 l .8 2021-11-27 2021-11-27 Outpatient [facility] [id number] 729 [place] 00:00:00 00:00:[address] 2021-11-27 2021-11-27 Travel 1.2.840.1 1.2.676.836 8666 162119 Methodi 00:00:00 00:00:[address] 3.430.2.7 0.2.7.3.698 Ho spita .3.960653 084.8 l .8 2021-10-29 2021-10-29 Orders Carol, 1.2.840.1 [id number] Methodi 00:00:00 00:00:00 Only Genna 07121.1.[address] 3.430.2.7 Hospit a .3.186848 l .8 2021-10-29 2021-10-29 Orders Carol, 1.2.840.1 [id number] Methodi 00:00:00 00:00:00 Only Genna 45457.1.[address] 3.430.2.7 Hospit a .3.859867 l .8 2021-10-29 2021-10-29 Orders Carol, 1.2.840.1 [id number] Methodi 00:00:00 00:00:00 Only Genna 74015.1.[address] 3.430.2.7 Hospit a .3.515048 l .8 2021-10-29 2021-10-29 Orders Carol, 1.2.840.1 [id number] Methodi 00:00:00 00:00:00 Only Genna 87123.1.[address] 3.430.2.7 Hospit a .3.767528 l .8 2021-10-21 2021-10-21 Telephone Carol, 1.2.840.1 [id number] 743 [id number] Methodi 00:00:00 00:00:[address] 3.430.2.7 Hospit a .3.194764 l .8 2021-10-21 2021-10-21 Telephone Carol, 1.2.840.1 [id number] 419 [id number] Methodi 00:00:00 00:00:[address] 3.430.2.7 Hospit a .3.712916 l .8 2021-08-06 2021-08-06 Outpatient [facility]LE [facility] MDA MDA [id number] MD 08:38:06 09:44:21 VALERAE Javon o n 2021-08-05 2021-08-05 Outpatient [facility] MDA MARCO [id number] 185 12:42:03 12:42:03 VALERAE Javon o n 2021-07-17 2021-07-17 Orders Carol, 1.2.840.1 [id number] 18507 67167 Methodi 00:00:00 00:00:00 Only Genna 97243.1.[address] 3.430.2.7 Hospit a .3.928647 l .8 2021-07-16 2021-07-16 Orders [facility], 1.2.840.1 [id number] 07948 Methodi 00:00:00 00:00:00 Only Genna 74401.1.[address] 3.430.2.7 Hospit a .3.391572 l .8 2021-07-16 2021-07-16 Orders [facility], 1.2.840.1 [id number] 25039 Methodi 00:00:00 00:00:00 Only Genna 14786.1.[address] 3.430.2.7 Hospit a .3.339513 l .8 2021-07-07 2021-07-07 [facility] 1.2.840.1 [id number] 105 [id number] Methodi 06:30:00 10:19:00 Encounter Abhijit Bermudez 84580.1.[address] 3.430.2.7 Hospit a .3.181130 l .8 2021-07-07 2021-07-07 Anesthesia Raman Gama 1.2.840.1 [id number] Methodi 08:23:00 09:03:00 Event Annmarie Roger 70058.1.[address] 3.430.2.7 Hospit a .3.258843 l .8 2021-07-07 2021-07-07 [facility] 1.2.840.1 [id number] 2100 883491 Methodi 08:00:00 09:00:00 Abhijit Bermudez 79494.1.1 313 s t 3.430.2.7 Hospit a .3.114915 l .8 2021-07-07 2021-07-07 Travel 1.2.840.1 1.2.049.219 2059 593983 Methodi 00:00:00 00:00:[address] 3.430.2.7 0.2.7.3.698 Ho spita .3.009770 084.8 l .8 2021-07-04 2021-07-04 Telephone Glassner, 1.2.840.1 [id number] Methodi 00:00:00 00:00:00 Abhijit Bermudez 76402.1.1 939 s t 3.430.2.7 Hospit a .3.539563 l .8 2021-06-27 2021-06-27 Travel 1.2.840.1 1.2.136.332 1257 247344 Methodi 00:00:00 00:00:[address] 3.430.2.7 0.2.7.3.698 Ho spita .3.466417 084.8 l .8 2021-06-18 2021-06-18 Telephone Glassner, 1.2.840.1 [id number] Methodi 00:00:00 00:00:00 Abhijit Bermudez 99373.1.1 358 s t 3.430.2.7 Hospit a .3.827853 l .8 2021-06-18 2021-06-18 Travel 1.2.840.1 1.2.176.516 8218 810356 Methodi 00:00:00 00:00:[address] 3.430.2.7 0.2.7.3.698 Ho spita .3.399146 084.8 l .8 2021-05-30 2021-05-30 Orders Bee, 1.2.840.1 [id number] 557541 8110 Methodi 00:00:00 00:00:00 Only Giovanni 73889.1.[address] 3.430.2.7 Hospit a .3.890896 l .8 2021-05-29 2021-05-29 Telephone Montez, 1.2.840.1 [id number] Methodi 00:00:00 00:00:00 Abhijit Bermudez 40969.1.1 412 s t 3.430.2.7 Hospit a .3.878557 l .8 2021-05-27 2021-05-27 Office Montez, 1.2.840.1 [id number] 2099 526704 Methodi 10:48:34 12:03:41 Visit Abhijit Bermudez 26225.1.1 679 s t 3.430.2.7 Hospit a .3.029967 l .8 2021-05-27 2021-05-27 Travel 1.2.840.1 1.2.187.049 6964 271631 Methodi 00:00:00 00:00:[address] 3.430.2.7 0.2.7.3.698 Ho spita .3.236990 084.8 l .8 2021-05-08 2021-05-08 Travel 1.2.840.1 1.2.741.716 7945 105564 Methodi 00:00:00 00:00:[address] 3.430.2.7 0.2.7.3.698 Ho spita .3.765129 084.8 l .8 2021-05-02 2021-05-02 Orders Alagugurusa 1.2.840.1 [id number] 21 [id number] Methodi 00:00:00 00:00:00 Only my, 37028.1.[address] [place] 3.430.2.7 Hospi ta Koch .3.771662 l .8 2021-03-25 2021-03-25 [facility] 1.2.840.[facility] [id number] 21 [id number] Methodi 11:29:13 23:59:00 Encounter Sean 69039.1.1 963 s t 3.430.2.7 Hospit a .3.735285 l .8 2021-03-25 2021-03-25 Travel 1.2.840.1 1.2.168.604 3379 802295 Methodi 00:00:00 00:00:[address] 3.430.2.7 0.2.7.3.698 Ho spita .3.608048 084.8 l .8 2021-03-24 2021-03-24 Orders Alagugurusa 1.2.840.1 [id number] 21 [id number] Methodi 00:00:00 00:00:00 Only bentley, 64331.1.[address] [place] 3.430.2.7 Hospi ta Koch .3.130321 l .8 2021-03-12 2021-03-12 Travel 1.2.840.1 1.2.446.401 1081 420292 Methodi 00:00:00 00:00:[address] 3.430.2.7 0.2.7.3.698 Ho spita .3.270279 084.8 l .8 2021-03-06 2021-03-06 Orders Alagugurusa 1.2.840.1 [id number] 21 [id number] Methodi 00:00:00 00:00:00 Only bentley, [address]6625.1.[address] [place] 3.430.2.7 Hospi ta Koch .3.840630 l .8 2021-02-27 2021-02-27 [facility] 1.2.840.1 [id number] 21 [id number] Methodi 18:50:16 23:59:00 Encounter Sean 53993.1.1 356 s t 3.430.2.7 Hospit a .3.672008 l .8 2021-02-27 2021-02-27 [facility] 1.2.840.1 [id number] 21 [id number] Methodi 18:47:31 18:49:00 Encounter Sean 30663.1.1 312 s t 3.430.2.7 Hospit a .3.199910 l .8 2021-02-27 2021-02-27 [facility] Henry Flores 1.2.840.1 [id number] 21 [id number] Methodi 18:44:05 18:46:00 Encounter Sean 42838.1.1 229 s t 3.430.2.7 Hospit a .3.375503 l .8 2021-02-27 2021-02-27 [facility] 1.2.840.1 [id number] 21 [id number] Methodi 18:41:15 18:43:00 Encounter Sean 42328.1.1 166 s t 3.430.2.7 Hospit a .3.279613 l .8 2021-01-29 2021-01-29 Outpatient [facility] MDA MDA [id number] 09:34:29 10:18:20 ISH baird 2021-01-28 2021-01-28 Outpatient SOLE HINKLE MDA MDA [id number] 13:55:54 13:55:54 STAN baird 2020-10-02 2020-10-02 Outpatient [facility] MDA MDA [id number] 09:16:19 11:38:14 ISH baird 2020-10-02 2020-10-02 Outpatient [facility]LE [facility] MDA MDA [id number] 10:09:12 10:09:12 ISH baird 2020-10-02 2020-10-02 Outpatient [facility]LE [facility] MDA MDA [id number] 10:09:10 10:09:10 ISH baird 2020-10-02 2020-10-02 Outpatient EL MDA MDA [id number] 08:34:24 08:34:44 Javon baird 2020-09-30 2020-09-30 Outpatient EL MDA MDA [id number] 10:42:41 11:00:40 Javon baird 2019-09-19 2019-09-19 Outpatient SOLE Preston [facility] RODY [id number] [facility] 12:00:00 12:00:00 Veronica Flores [facility] Results Test Description Test Time Test Comments Results Result Comments Source ECG 12 lead 2022-03-11 22:42:38 Test Item Value Reference Range Interpretation Comme nts Ventricular rate (test code = 253) Atrial rate (test code = 255) OR interval (test code = 266) QRSD interval (test code = 260) QT interval (test code = 264) QTC interval (test code = 265) P axis 1 (test code = 267) QRS axis 1 (test code = 268) T wave axis (test code = 270) EKG impression (test code = 273) Normal sinus rhythm-Normal ECG-No previous ECGs available- [facility] [id number] 17:31:01 Test Item Value Reference Range Interpretation Comments POC creatinine (test 1.0 mg/dl 0.5-0.9 H Operato r Name: code = 49969-3) Diego MendozahelDestrellaice ID : [id number] Lab Interpretation Abnormal (test code = 40230-5) [id number] 17:31:01 Test Item Value Reference Range Interpretation Comments Estimated GFR (test mL/min/1.73 m2 A [facility] Units code = 24580-8) Interpretati onG1 >=90 Normal or highG 2 60-89 Mildly decrease dG3a 45-59 Mildly to moderately decr khcewV7h 30-44 Moderatel y to severely decrea sedG4 15-29 Severely decreasedG5 <15 Kidney failureThe eGFR was calculated usangie g the Chronic Kidney Disease Epidemiology Collaboration ( CKD-EPI) equation. Interpretation is based on recommendati ons of the National Ki dney Foundation-Kidn ey Disease Outcome s Quality Initiat александр (NKF-KDOQI) pub lished in 2014. Lab Interpretation Abnormal (test code = 26197-6) [facility]
--- NOTE | 2022-09-17 20:50 | RAD REPORT ---
EXAM DESCRIPTION: RAD - Chest Single View - 09/17/2022 8:42 pm CLINICAL HISTORY: COUGH COMPARISON: Chest Pa And Lat (2 Views) dated 07/22/2021; Chest Pa And Lat (2 Views) dated 07/18/2020 ; Chest Pa And Lat (2 Views) dated 03/21/2020; Chest Pa And Lat (2 Views) dated 05/12/2019 FINDINGS: Lines: None. Lungs: No evidence of edema or pneumonia. Pleural: No significant pleural effusions or pneumothorax. Cardiac: The heart size is within normal limits. Mediastinum: Within normal limits. Bones: No acute fractures. Other: None IMPRESSION: No acute cardiopulmonary disease.
[2022-09-17] MEDS ORDERED: METHYLPREDNISOLONE 125 MG INJ ONE (20:52)
[2022-09-17] MEDS ORDERED: LABETALOL 20 MG/4ML SYRINGE IV ONE (20:53)
[2022-09-17] MEDS ORDERED: NA CHLORIDE 0.9% 1,000 ML ONE (20:53)
[2022-09-17] MEDS ORDERED: LABETALOL HCL 100 MG TAB ONE (20:53)
[2022-09-17] MEDS ORDERED: AMLODIPINE 10 MG TAB ONE (20:53)
--- NOTE | 2022-09-17 20:58 | EDPHYS ---
Physician Documentation [facility] Name: Erma Lara Age: 71 yrs Sex: Female : 1950 Arrival Date: 09/17/2022 Time: 20:08 Bed 19 Private MD: ED Physician Junior Yates HPI: 09/17 20:51 This 71 yrs old Female presents to ER via Ambulatory with complaints of Blood dann Pressure Problem. 20:51 HTN AFTER REMICADE. Onset: The symptoms/episode began/occurred just prior to arrival. dann Severity of symptoms: At their worst the symptoms were mild moderate in the emergency department the symptoms have improved moderately. The patient has not experienced similar symptoms in the past. Historical: - Allergies: 20:22 HYDROCODONE; kd3 - PMHx: 20:22 Crohn's; Hyperlipidemia; Migraines; kd3 - Immunization history:: Adult Immunizations up to date. - Social history:: Smoking status: Patient denies any tobacco usage or history of. ROS: 20:52 Constitutional: Negative for fever, chills, and weight loss, Eyes: Negative for injury, dann pain, redness, and discharge, ENT: Negative for injury, pain, and discharge, Neck: Negative for injury, pain, and swelling, Cardiovascular: Negative for chest pain, palpitations, and edema, Respiratory: Negative for shortness of breath, cough, wheezing, and pleuritic chest pain, Abdomen/GI: Negative for abdominal pain, nausea, vomiting, diarrhea, and constipation, Back: Negative for injury and pain, : Negative for injury, bleeding, discharge, and swelling, MS/Extremity: Negative for injury and deformity, Skin: Negative for injury, rash, and discoloration, Neuro: Negative for headache, weakness, numbness, tingling, and seizure, Psych: Negative for depression, anxiety, suicide ideation, homicidal ideation, and hallucinations, Allergy/Immunology: Negative for hives, rash, and allergies, Endocrine: Negative for neck swelling, polydipsia, polyuria, polyphagia, and marked weight changes, Hematologic/Lymphatic: Negative for swollen nodes, abnormal bleeding, and unusual bruising. Exam: 20:52 Constitutional: This is a well developed, well nourished patient who is awake, alert, dann and in no acute distress. Head/Face: Normocephalic, atraumatic. Eyes: Pupils equal round and reactive to light, extra-ocular motions intact. Lids and lashes normal. Conjunctiva and sclera are non-icteric and not injected. Cornea within normal limits. Periorbital areas with no swelling, redness, or edema. ENT: Nares patent. No nasal discharge, no septal abnormalities noted. Tympanic membranes are normal and external auditory canals are clear. Oropharynx with no redness, swelling, or masses, exudates, or evidence of obstruction, uvula midline. Mucous membranes moist. Neck: Trachea midline, no thyromegaly or masses palpated, and no cervical lymphadenopathy. Supple, full range of motion without nuchal rigidity, or vertebral point tenderness. No Meningismus. Chest/axilla: Normal chest wall appearance and motion. Nontender with no deformity. No lesions are appreciated. Cardiovascular: Regular rate and rhythm with a normal S1 and S2. No gallops, murmurs, or rubs. Normal PMI, no JVD. No pulse deficits. Respiratory: Lungs have equal breath sounds bilaterally, clear to auscultation and percussion. No rales, rhonchi or wheezes noted. No increased work of breathing, no retractions or nasal flaring. Abdomen/GI: Soft, non-tender, with normal bowel sounds. No distension or tympany. No guarding or rebound. No evidence of tenderness throughout. Back: No spinal tenderness. No costovertebral tenderness. Full range of motion. Female : Normal external genitalia. Skin: Warm, dry with normal turgor. Normal color with no rashes, no lesions, and no evidence of cellulitis. MS/ Extremity: Pulses equal, no cyanosis. Neurovascular intact. Full, normal range of motion. Neuro: Awake and alert, GCS 15, oriented to person, place, time, and situation. Cranial nerves II-XII grossly intact. Motor strength 5/5 in all extremities. Sensory grossly intact. Cerebellar exam normal. Normal gait. Psych: Awake, alert, with orientation to person, place and time. Behavior, mood, and affect are within normal limits. 21:16 ECG was reviewed by the Attending Physician. [place] Vital Signs: 20:17 BP 165 / 74; Pulse 67; Resp 18; Temp 98.2(TE); Pulse Ox 98% on R/A; Weight 65.32 kg; kd3 Height 5 ft. 3 in. (160.02 cm); Pain 0/10; 21:04 BP 171 / 73; Pulse 80; Resp 18; Pulse Ox 100% on R/A; Pain 0/10; kl 22:00 BP 192 / 61; Pulse 82; Resp 18; Pulse Ox 99% on R/A; kl 20:17 Body Mass Index 25.51 (65.32 kg, 160.02 cm) kd3 MDM: 20:28 Patient medically screened. [place] 20:53 Data reviewed: vital signs, nurses notes, lab test result(s), EKG, radiologic studies, dann plain films. Data interpreted: bed bug exterminator: rate is 67 beats/min, rhythm is regular, Pulse oximetry: on room air is 98 %. Test interpretation: by ED physician or midlevel provider: ECG, plain radiologic studies. Counseling: I had a detailed discussion with the patient and/or guardian regarding: the historical points, exam findings, and any diagnostic results supporting the discharge/admit diagnosis, lab results, radiology results, the need for further work-up and treatment in the hospital. 09/17 20:09 Order name: Basic Metabolic Panel; Complete Time: 23:26 [place] 09/17 20:09 Order name: CBC with Diff; Complete Time: 22:04 [place] 09/17 20:09 Order name: LFT's; Complete Time: 23:26 [place] 09/17 20:09 Order name: Magnesium; Complete Time: 23:26 [place] 09/17 20:09 Order name: NT PRO-BNP; Complete Time: 23:26 [place] 09/17 20:09 Order name: PT-INR; Complete Time: 22:04 [place] 09/17 20:09 Order name: Troponin HS; Complete Time: 23:26 [place] 09/17 20:09 Order name: SARS RAPID; Complete Time: 22:04 [place] 09/17 20:09 Order name: Urine Microscopic Only [place] 09/17 20:09 Order name: Lipase; Complete Time: 23:26 [place] 09/17 21:07 Order name: Basic Metabolic Panel EDMS 09/17 21:07 Order name: Basic Metabolic Panel EDMS 09/17 21:07 Order name: CBC with Automated Diff EDMS 09/17 21:07 Order name: CBC with Automated Diff [facility] 09/17 20:09 Order name: XRAY Chest (1 view); Complete Time: 22:04 [place] 09/17 20:09 Order name: EKG; Complete Time: 20:10 [place] 09/17 20:09 Order name: Cardiac monitoring; Complete Time: 07:32 [place] 09/17 20:09 Order name: EKG - Nurse/Tech; Complete Time: 07:32 [place] 09/17 20:09 Order name: IV Saline Lock; Complete Time: 07:32 [place] 09/17 20:09 Order name: Labs collected and sent; Complete Time: 07:32 [place] 09/17 20:09 Order name: O2 Per Protocol; Complete Time: 07:32 [place] 09/17 21:07 Order name: Heart Healthy [facility] 09/17 21:07 Order name: EKG Electrocardiogram; Complete Time: 22:05 [facility] 09/17 21:07 Order name: EKG Electrocardiogram; Complete Time: 22:06 [facility] 09/17 20:09 Order name: O2 Sat Monitoring; Complete Time: 07:32 [place] EC:16 Rate is 62 beats/min. Rhythm is regular. QRS [place] is Normal. [place] interval is normal. QRS dann interval is normal. QT interval is normal. No Q waves. No ST changes noted. Clinical impression: LVH and No evidence of ischemia. Interpreted by me. Reviewed by me. Administered Medications: 21:40 Drug: Labetalol 20 mg Route: IV; Rate: per protocol; Infused Over: 2 mins; Site: left kl antecubital; 21:50 Drug: SOLU-Medrol (methylPrednisoLONE) 125 mg Route: IVP; Site: left antecubital; kl 22:05 Drug: NS 0.9% 1000 ml Route: IV; Rate: 75 ml/hr; Site: left antecubital; kl 22:05 Drug: Labetalol 100 mg Route: PO; kl 22:05 Drug: Pepcid (famotidine) 20 mg Route: IVP; Site: left antecubital; kl 22:05 Drug: Norvasc (amlodipine) 10 mg Route: PO; Disposition Summary: 09/17/22 20:57 Hospitalization Ordered Hospitalization Status: Observation dann Provider: Reza Cassidy cha Condition: Fair dann Problem: new dann Symptoms: have improved dann Bed/Room Type: Standard dann Location: [facility] ER HOLD(09/17/22 21:21) Room Assignment: ERHOLD-(09/17/22 21:21) mw Diagnosis - Essential (primary) hypertension dann - Adverse effect of unspecified drugs, medicaments and biological substances - [place] Remicade Forms: - Medication Reconciliation Form dann - SBAR form dann Signatures: Dispatcher [employer] Soco Foster RN RN kl Webb, Martha RN Junior Bardales MD MD cha Doucette, Kyli, RN RN kd3 Corrections: (The following items were deleted from the chart) 20:57 Telemetry/MedSurg (observation) dann 20:57 dann
--- NOTE | 2022-09-17 20:58 | ER ---
Nurse's Notes [facility] Name: Erma Lara Age: 71 yrs Sex: Female : 1950 Arrival Date: 09/17/2022 Time: 20:08 Bed 19 Private MD: Diagnosis: Essential (primary) hypertension;Adverse effect of unspecified drugs, medicaments and biological substances-Remicade Presentation: 09/17 20:17 Chief complaint: Patient states: I had my remicade infusion today and it spiked my kd3 blood pressure up. I have infusions every 8 weeks and this is the 3rd time this has spiked my blood pressure up. Dr. amaya has already called Dr Yates to tell him what's going on and that i need to be admitted for observation. Coronavirus screen: Vaccine status: Patient reports receiving the 2nd dose of the covid vaccine. Ebola Screen: No symptoms or risks identified at this time. Initial Sepsis Screen: Does the patient meet any 2 criteria? No. Patient's initial sepsis screen is negative. Does the patient have a suspected source of infection? No. Patient's initial sepsis screen is negative. Risk Assessment: Do you want to hurt yourself or someone else? Patient reports no desire to harm self or others. Onset of symptoms was September 17, 2022. 20:17 Method Of Arrival: Ambulatory kd3 20:17 Acuity: [place] 3 kd3 Triage Assessment: 20:22 General: Appears in no apparent distress. Behavior is calm, cooperative. Pain: Denies kd3 pain. Neuro: Level of Consciousness is awake, alert, obeys commands, Oriented to person, place, time, situation. Cardiovascular: Patient's skin is warm and dry. Respiratory: Airway is patent Trachea midline Respiratory effort is even, unlabored, Respiratory pattern is regular, symmetrical. Historical: - Allergies: 20:22 HYDROCODONE; kd3 - PMHx: 20:22 Crohn's; Hyperlipidemia; Migraines; kd3 - Immunization history:: Adult Immunizations up to date. - Social history:: Smoking status: Patient denies any tobacco usage or history of. Screenin:07 [facility] ED Fall Risk Assessment (Adult) History of falling in the last 3 months, kl including since admission No falls in past 3 months (0 pts) Confusion or Disorientation No (0 pts) Intoxicated or Sedated No (0 pts) Impaired Gait No (0 pts) Mobility Assist Device Used No (0 pt) Altered Elimination No (0 pt) Score/Fall Risk Level 0 - 2 = Low Risk. 22:11 Abuse screen: Denies threats or abuse. Nutritional screening: No deficits noted. kl Tuberculosis screening: No symptoms or risk factors identified. Fall Risk No fall in past 12 months (0 pts). No secondary diagnosis (0 pts). IV access (20 points). Ambulatory Aid- None/Bed Rest/Nurse Assist (0 pts). Gait- Normal/Bed Rest/Wheelchair (0 pts) Mental Status- Oriented to own ability (0 pts). Total Vazquez Fall Scale indicates No Risk (0-24 pts). 09/18 09:11 Humpty Dumpty Scale Fall Assessment Tool (age< 18yrs). kc6 Assessment: 09/17 21:15 General: Appears in no apparent distress. comfortable, Behavior is calm, cooperative. kl Pain: Denies pain. Neuro: No deficits noted. Cardiovascular: No deficits noted. Capillary refill < 3 seconds Rhythm is regular Parent/caregiver reports patient has had since hypertension. Respiratory: No deficits noted. GI: No deficits noted. No signs and/or symptoms were reported involving the gastrointestinal system. : No deficits noted. No signs and/or symptoms were reported regarding the genitourinary system. EENT: No deficits noted. No signs and/or symptoms were reported regarding the EENT system. 22:11 Reassessment: Patient appears in no apparent distress at this time. No changes from kl previously documented assessment. Patient is alert, oriented x 3, equal unlabored respirations, skin warm/dry/pink. Patient states feeling better. Patient states symptoms have improved. Vital Signs: 20:17 BP 165 / 74; Pulse 67; Resp 18; Temp 98.2(TE); Pulse Ox 98% on R/A; Weight 65.32 kg; kd3 Height 5 ft. 3 in. (160.02 cm); Pain 0/10; 21:04 BP 171 / 73; Pulse 80; Resp 18; Pulse Ox 100% on R/A; Pain 0/10; kl 22:00 BP 192 / 61; Pulse 82; Resp 18; Pulse Ox 99% on R/A; kl 20:17 Body Mass Index 25.51 (65.32 kg, 160.02 cm) kd3 ED Course: 20:08 Patient arrived in ED. dt4 20:08 Junior Yates MD is Attending Physician. dann 20:22 Triage completed. kd3 20:22 Arm band placed on right wrist. kd3 20:26 Maintain EMS IV. Dressing intact. Good blood return noted. Site clean \T\ dry. Gauge \T\ kd 3 site: 24 left AC. PT received infusion therapy today . 20:44 XRAY Chest (1 view) In Process Unspecified. EDMS 20:55 Reza Cassidy MD is Hospitalizing Provider. [facility] 21:05 EKG completed in triage. Results shown to MD. kl 22:12 Patient has correct armband on for positive identification. kl 22:12 No provider procedures requiring assistance completed. Patient admitted, IV remains in kl place. Administered Medications: 21:40 Drug: Labetalol 20 mg Route: IV; Rate: per protocol; Infused Over: 2 mins; Site: left kl antecubital; 21:50 Drug: SOLU-Medrol (methylPrednisoLONE) 125 mg Route: IVP; Site: left antecubital; kl 22:05 Drug: NS 0.9% 1000 ml Route: IV; Rate: 75 ml/hr; Site: left antecubital; kl 22:05 Drug: Labetalol 100 mg Route: PO; 22:05 Drug: Pepcid (famotidine) 20 mg Route: IVP; Site: left antecubital; kl 22:05 Drug: Norvasc (amlodipine) 10 mg Route: PO; Medication: 22:12 VIS not applicable for this client. Outcome: 20:57 Decision to Hospitalize by Provider. dann 22:12 Admitted to ER Hold. Please see [facility] for further documentation. 22:12 Condition: improved 22:12 Discharge instructions given to patient, family, Instructed on the need for admit, Demonstrated understanding of instructions. 09/18 09:14 Patient left the ED. kc6 Signatures: Dispatcher [employer] EDMS Soco [place], Junior Riggs RN, MD MD cha Doucette, Kyli, RN RN kd3 Shayla Huitron RN RN kc6 Robina Bradley dt4
[2022-09-17] MEDS ORDERED: ACETAMINOPHEN 500 MG TAB PO PRN (21:02)
[2022-09-17] MEDS ORDERED: ONDANSETRON 4 MG/2 ML VIAL IV PRN (21:02)
[2022-09-17 21:43] LABS: Protime INR 0.96
[2022-09-17 21:45] LABS: Absolute Lymphocytes (CBC) 2.7 K/uL (0.7-4.9); Hematocrit 40.4 % (36.0-45.0); Lymphocytes % 48.4 % (15.3-44.8); MCV 88.3 fL (80-100); MPV 8.5 fL (7.6-11.3); RBC Red Blood Cell Count 4.58 M/uL (3.86-4.86)
[2022-09-17] MEDS ORDERED: NA CHLORIDE 0.9% 1,000 ML IV SCH (22:00)
[2022-09-17 22:03] LABS: SARS-CoV-2 Antigen Rapid Res Negative (Negative)
[2022-09-17 22:10] LABS: ALT/SGPT 31 U/L (13-56); AST/SGOT 30 U/L (15-37); Albumin 3.7 g/dL (3.4-5.0); Alkaline Phosphatase 66 U/L (45-117); BUN Blood Urea Nitrogen 17 mg/dL (7-18); Bicarbonate 28 mmol/L (21-32); Bilirubin Total 0.3 mg/dL (0.2-1.0); Glomerular Filtration Rate 58 ml/min (=/>90); Glucose Level 111 mg/dL (74-106); Lipase 176 U/L (73-393); Magnesium 2.2 mg/dL (1.6-2.4); NT PRO-BNP 62 pg/mL (<125); Potassium 3.9 mmol/L (3.5-5.1); Protein, Total 6.9 g/dL (6.4-8.2); Sodium Level 138 mmol/L (136-145)
[2022-09-17 22:26] LABS: Bilirubin Direct < 0.1 mg/dL (0-0.2)
[2022-09-17] MEDS ORDERED: ZOLPIDEM TARTRATE 10 MG TABLET PO PRN (23:50)
[2022-09-17] MEDS ORDERED: LABETALOL 20 MG/4ML SYRINGE IV PRN (23:51)
[2022-09-18 00:04] VITALS: BMI 25.4
[2022-09-18] MEDS: METHYLPREDNISOLONE 40 MG INJ IV SCH ×2 (00:21→08:21)
[2022-09-18] MEDS ORDERED: ACETAMINOPHEN 325 MG TABLET ONE (00:27)
[2022-09-18] MEDS ORDERED: ZOLPIDEM TARTRATE 5 MG TABLET ONE (00:28)
[2022-09-18 03:21] LABS: Absolute Lymphocytes (CBC) 0.7 K/uL (0.7-4.9); Hematocrit 40.7 % (36.0-45.0); MCV 87.9 fL (80-100); MPV 8.3 fL (7.6-11.3); RBC Red Blood Cell Count 4.63 M/uL (3.86-4.86)
[2022-09-18 03:45] LABS: Potassium 4.2 mmol/L (3.5-5.1)
[2022-09-18 04:54] VITALS: TEMP 98.2
[2022-09-18] MEDS ORDERED: LABETALOL HCL 100 MG TAB ONE (07:51)
[2022-09-18] MEDS ORDERED: AMLODIPINE 10 MG TAB ONE (07:52)
[2022-09-18] MEDS ORDERED: METHYLPREDNISOLONE 40 MG INJ ONE (07:52)
[2022-09-18] MEDS ORDERED: FAMOTIDINE 20 MG/2 ML VIAL IV ONE (07:52)
[2022-09-18 08:22] VITALS: BP 129/67
[2022-09-18] MEDS ORDERED: LABETALOL HCL 100 MG TAB PO SCH (09:00)
[2022-09-18] MEDS ORDERED: FAMOTIDINE 20 MG/2 ML VIAL IV SCH (09:00)
[2022-09-18] MEDS ORDERED: AMLODIPINE 10 MG TAB PO SCH (09:00)
[2022-09-18 09:02] VITALS: O2SAT 96
--- NOTE | 2022-09-18 14:55 | P.SSS ---
Patient History Date of Service: 09/18/22 Reason for admission: BP WENT UP WITH REMICAID INFUSION History of Present Illness: SHE WAS AT DR. FONTANA'S OFFICE JEFF WALLER AND BP WENT TO 200 [address]. HE GAVE LABETOLOL TO BRING IT DOWN AND IT WORKED ONLY PARTIALLY. SHE IS HERE FOR OBSERVATION. THIS HAPPENED BEFORE AND BP CAME DOWN. THEY WILL WORK WITH GI DO[facility]ORS TO CHANGE HER MEDS. SHE IS STABLE FOR DC. Allergies No Known Allergies Allergy (Unverified 07/24/22 12:56) Home medications list reviewed: Yes Home Medications: Estradiol [Estrace] 1 mg PO DAILY 07/22/21 Fenofibrate,Micronized [Fenofibrate] 1 mg PO DAILY 07/22/21 Folic Acid 1 mg PO DAILY 07/22/21 Meclizine HCl 1 tab PO BEDTIME 07/22/21 Methotrexate Inj [Methotrexate Sodium Inj*] 0.5 mg IJ EVERY 7TH DAY 07/22/21 Montelukast [Singulair] 1 mg PO DAILY 07/22/21 Pantoprazole [Protonix Tab*] 40 mg PO DAILY 07/22/21 Rizatriptan Benzoate [Rizatriptan] 1 mg PO Q4HR PRN 07/22/21 Solifenacin [Vesicare] 10 mg PO DAILY 07/22/21 Tizanidine [Zanaflex] 4 mg PO BEDTIME 07/22/21 Gabapentin 1 cap PO BEDTIME 02/09/22 - Past Medical/Surgical History Has patient received pneumonia vaccine in the past: Yes Diabetic: No -: Vertigo -: Rheumatoid arthritis -: high choesterol -: migraines -: hyperactive bladder -: muscle spasms -: GERD -: Hysterectomy -: tonsillectomy -: tumor removed on back -: L knee sx -: L ankle sx -: r hand surgery - Family History Father -: Heart disease, Diabetes Mother -: Other (see notes) Notes: hypothyroidism - Social History Smoking Status: Never smoker Alcohol use: No CD- Drugs: No Caffeine use: No Place of Residence: Home Review of Systems 10-point ROS is otherwise unremarkable Physical Examination - Vital Signs Temperature: 98.2 F Blood Pressure: 129/67 Pulse: 104 Respirations: 18 Pulse Ox (%): 96 - Physical Exam General: Alert, In no apparent distress HEENT: Atraumatic, PERRLA, Mucous membr. moist/pink, EOMI, Sclerae nonicteric Neck: Supple, 2+ carotid pulse no bruit, No LAD, Without JVD or thyroid abnormality Respiratory: Clear to auscultation bilaterally, Normal air movement Cardiovascular: Regular rate/rhythm, Normal S1 S2 Gastrointestinal: Normal bowel sounds, No tenderness Musculoskeletal: No tenderness Integumentary: No rashes Neurological: Normal gait, Normal speech, Normal strength at 5/5 x4 extr, Normal tone, Normal affect Lymphatics: No axilla or inguinal lymphadenopathy - Diagnosis (Problem(s)) (1) Hypertensive emergency Status: Acute Plan: TRANSIENT AND DRUG REACTION RELATED. SHOULD NOT BE ISSUE FOR LONG-TERM CONTROL SHE DOES NOT HAVE HYPERTENSION BY HISTORY. - Disposition Disposition: ROUTINE DISCHARGE Condition: FAIR
--- NOTE | 2022-09-22 15:21 | EKG ---
Test Date: 2022-09-17 Test Time: 21:00:51 Fuel Manager: RV MEASUREMENT RESULTS: Intervals: Rate: 62 WV: 208 QRSD: 88 QT: 446 QTc: 452 [place]: P: 69 WV: 208 QRS: -20 T: 44 INTERPRETIVE STATEMENTS: Normal sinus rhythm Moderate voltage criteria for LVH, may be normal variant Borderline ECG Compared to ECG 07/23/2021 11:06:40 Myocardial infarct finding no longer present Electronically Signed On 09-22-22 15:17:36 SOFTWARE DEVELOPER CONSULTANT by Jesus Alberto Cotter
== END 2022-09-18 09:12 | disposition home or self-care (01) ==
LOC: ER 20:04 → ERHOLD 21:00
PROVIDERS: ADMIT Internal Medicine; ATTEND Internal Medicine
DX: I16.1 Hypertensive emergency (principal); T39.8X5A Adverse effect of other nonopioid analgesics and antipyretics, not elsewhere classified, initial encounter; M06.9 Rheumatoid arthritis, unspecified; E78.00 Pure hypercholesterolemia, unspecified; K21.9 Gastro-esophageal reflux disease without esophagitis; E78.5 Hyperlipidemia, unspecified; K50.90 Crohn's disease, unspecified, without complications; Z20.822 Contact with and (suspected) exposure to COVID-19; Z88.6 Allergy status to analgesic agent; Z82.49 Family history of ischemic heart disease and other diseases of the circulatory system; Y92.531 Health care provider office as the place of occurrence of the external cause
CPT/HCPCS: 93005; 85025 ×2; 80048 ×2; 36415; 83735; 85610; 80076; 84484; 83690; 83880; 71045; 96375; 96374; 99285; 87811; J7030; J2930; J2920

== ENCOUNTER 2023-01-26 06:53 | Day surgery (SDC) | payer OTHER ==
[2023-01-26 07:45] VITALS: BP 126/59; TEMP 96.9; O2SAT 99; BMI 26.3
[2023-01-26] MEDS ORDERED: SOD FERRIC GLUC COMPLX/SUCROSE 250 MG in NA CHLORIDE 0.9% 250 ML IV ONE (08:00)
== END 2023-01-26 10:17 | disposition home or self-care (01) ==
LOC: DS 06:53
PROVIDERS: ATTEND Internal Medicine Gastroenterology
DX: D50.9 Iron deficiency anemia, unspecified (principal)
CPT/HCPCS: 96365; 96366; J2916; J7050

== ENCOUNTER → 2023-11-04 | Emergency (ER) | payer OTHER ==
[~2023-11-04] MED LIST: ACETAMINOPHEN 500 MG TAB ONE; FENTANYL CITR 100 MCG/2 ML ONE; ONDANSETRON 4 MG (ODT) TAB ONE
--- OUTSIDE RECORDS SUMMARY | 2023-11-04 13:59 | XMS REPORT | Clinical Summary ---
Author Name Unknown Organization [facility] Address [address] [place] [address] Care Team Providers Care Supervisor Litharge Name Role Phone Hugo Rich MD Unavailable [phone] Koko Krause MD Unavailable [phone] Steve Soriano MD Unavailable [phone] Ish Oviedo MD Primary Care Provider [phone] Reza Cassidy MD Unavailable [phone] Allergies Active Allergy Reactions Criticality Noted Date Comments Codeine Low 07/13/2016 Other reaction(s): Itching/Hives/Rash Medications Medication Sig Dispensed Refills Start Date End Date Status aspirin 81 mg EC tablet AT BEDTIME 0 11/19/2015 Active estradioL (ESTRACE) 0.5 mg tablet TAKE 1 TABLET BY MOUTH EVERY DAY 0 07/02/2020 Active fenofibrate micronized (LOFIBRA) 67 mg capsule TAKE 1 CAPSULE BY MOUTH EVERY DAY 0 09/19/2020 Active folic acid (FOLVITE) 1 mg tablet TAKE 1 TABLET BY MOUTH EVERY DAY 0 08/21/2020 Active melatonin 3 mg cap 2 tablets. 0 07/20/2019 Active meclizine (ANTIVERT) 25 mg tablet 3 tablets (75 mg). 0 11/19/2015 Acti ve methotrexate 2.5 mg tablet TAKE 5 TABLETS BY MOUTH WEEKLY 5 TABS ONCE A WEEK 0 06/21/2020 Active magnesium citrate 100 mg tab DAILY 0 07/20/2019 Active montelukast (SINGULAIR) 10 mg tablet TAKE 1 TABLET BY MOUTH EVERY DAY 0 09/24/2020 Active pantoprazole (PROTONIX) 40 mg EC tablet DAILY 0 07/21/2019 Active rizatriptan (MAXALT-FEEDLOT MANAGER) 10 mg disintegrating tablet THREE TIMES DAILY NEEDED 0 11/19/2015 Active lysine 1,000 mg tab DAILY 0 07/20/2019 Activ e cyanocobalamin, vitamin B-12, 1,000 mcg cap 1 tablet. 0 07/20/2019 Active L. acidophilus/Bifido longum (PROBIOTIC PEARLS ORAL) Take 1 tablet by mouth daily. 0 Active inFLIXimab (REMICADE) 100 mg injectionIndications: Crohn's disease Infuse 400 mg intravenously. Every 8 Weeks 0 Active glucosamine-chondroit in 500-400 mg tablet Take 1 tablet by mouth 3 (three) times a day. 0 Active cholecalciferol, vitamin D3, (VITAMIN D3) 2,000 units tab tablet Take 1 tablet (2,000 Units) by mouth. 0 Active docusate sodium (COLACE) 100 mg capsule Take 1 capsule (100 mg) by mouth. 0 Active fluticasone propionate (FLONASE) 50 mcg/spray nasal spray Inhale 2 sprays (100 mcg) into each nostril daily as needed for allergies. 0 Active fentaNYL (DURAGESIC) patch 25 mcg/hr 0 07/25/2021 Active pregabalin (LYRICA) 50 mg capsule 0 07/25/2021 Active dexamethasone (DECADRON) 4 mg tablet 0 07/25/2021 Active acyclovir (ZOVIRAX) 800 mg tablet TAKE 1 TABLET BY MOUTH 5 TIMES A DAY FOR 7 DAYS 0 07/21/2021 Active calcium carb-mag hydrox-simeth 1,200 mg-270 mg -80 mg/10 mL susp Take by mouth. 0 Active fluticasone propionate-salmeterol (ADVAIR) 500 mcg-50 mcg/inhalation diskus inhaler Inhale 1 puff by mouth. 0 Active gabapentin (NEURONTIN) 300 mg capsule TAKE 1 CAPSULE BY MOUTH EVERYDAY AT BEDTIME 0 05/27/2022 Active Linzess 290 mcg cap TAKE 1 CAPSULE BY MOUTH EVERY DAY 0 06/17/2022 Active methotrexate, PF, 25 mg/mL soln injection 0 06/22/2022 Acti ve omega 4-uvc-vrk-fish oil 1,200 (144-216) mg cap Take by mouth. 0 Active progesterone (PROMETRIUM) 100 MG capsule TAKE 1 CAPSULE BY MOUTH EVERY NIGHT 0 05/29/2022 Active Sutab 1.479-0.188- 0.225 gram tab PLEASE FOLLOW INSTRUCTIONS ON GIVEN BY DR Velez 03/15/2022 Active solifenacin (VESICARE) 10 MG tablet 0 06/24/2022 Active tiZANidine (ZANAFLEX) 4 mg tablet TAKE 1 TABLET BY MOUTH EVERY DAY AT BEDTIME NEEDED MAY WORK FOR INSOMNIA 0 05/28/2022 Active risankizumab-rzaa (SKYRIZI INTRAVENOUS) Infuse intravenously. 0 Active Active Problems No known active problems Encounters Date Type Department Care Team Description 12/23/2022 1:00 PM CDT [facility] [address] [place] [address] [address] dg, [address] [place] [address] Ish Oviedo MD Benign lipomatous neoplasm of skin and subcutaneous tissue of other sites 12/23/2022 9:15 AM CDT Ancillary Procedure [facility] [address] [place] [address] Main dg, 3rd [place] [address] Miguelina Farfan APRN Benign lipomatous neoplasm of skin and subcutaneous tissue of other sites 12/23/2022 Travel after 11/04/2022 Immunizations Name Administration Dates Next Due Pfizer SARS-CoV-2 Vaccination (Purple Cap) 10/29,10/08/2020 Surgical History Surgery Date Site/Laterality Comments COLONOSCOPY 08/04/2020 - 09/02/2020 Last one of 4 CHOLECYSTECTOMY UPPER GASTROINTESTINAL ENDOSCOPY 09/03/20 - 10/03/2019 2nd one Medical History Medical History Date Comments Hyperlipidemia 2017 Migraine 1975 Sinusitis 1990 Gastric reflux 2016 Gastric ulcer 2019 Crohn's disease Diverticulitis Polyp of colon Gallstone 07-22-20 Gallbladder yen con Menopause 2006 Uterine leiomyoma 1982 Partial hyster ectomy Anemia Blood coagulation disorder Blood transfusion, without reported diagnosis Arthritis Basal cell carcinoma of skin 2013 Lef t side of nose Family History Medical History Relation Name Comments Skin cancer Brother Ray Lodrigue Ear and shoulde r Skin cancer Sister Jass Linn Face Relation Name Status Comments Brother Mitch Linn Sister Jass Linn Social History Tobacco Use Types Packs/Day Years Used Date Smoking Tobacco: Never Smokeless Tobacco: Never Alcohol Use Standard Drinks/Week Comments Never 0 (1 standard drink = 0.6 oz pur e alcohol) Sex and Gender Information Value Date Recorded Sex Assigned at Not on file Gender Identity Female 02/04/2022 3:18 PM CDT Sexual Orientation Not on file Job Start Date Occupation Industry Not on file Not on file Not on file Obstetrics History Last Filed Vital Signs Vital Sign Reading Time Taken Comments Blood Pressure 137/76 12/23/2022 1:19 PM CDT Pulse 77 12/23/2022 1:19 PM CDT Temperature 36.5 C (97.7 F) 12/23/2022 1:19 PM CD T Respiratory Rate 18 12/23/2022 1:19 PM CDT Oxygen Saturation 99% 12/23/2022 1:19 PM CDT Inhaled Oxygen Concentration - - Weight 67.9 kg (149 lb 11.1 oz) 12/23/2022 1:19 PM CDT Height - - Body Mass Index 28.26 10/02/2020 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 Plan of Treatment Health Maintenance Due Date Last Done Comments COVID-19 Vaccination (3 - Pf izer risk series) 11/26/2020 10/29/2020, 10/08/2020 Procedures Procedure Name Priority Date/Time Associated Diagnosis Comments MRI PELVIS W WO CONTRAST Routine 12/23/2022 10:53 AM CDT Benign lipomatous neoplasm of skin and subcutaneous tissue of other sites after 11/04/2022 Results * MRI Pelvis with and without Contrast (12/23/2022 10:53 AM CDT) Anatomical Region Laterality Modality Pelvis Magnetic Resonan ce 12/23/2022 10:5 7 AM CDT Impressions 12/23/2022 11:14 AM CDT Redemonstration of a soft tissue lipomatous mass from the anterior proximal left thigh, with interval stability in comparison with prior MRI 06/23/2022, with minimal interval enlargement since 08/05/2021. Narrative 12/23/2022 11:14 AM CDT FULL RESULT: Examination: MRI PELVIS W WO CONTRAST, 12/23/2022 10:53 AM. 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 Findings: Tumor: * There is redemonstration of a left sided soft tissue mass along the proximal and anterolateral thigh, anterior lateral to the left femoral neck and greater trochanter and lateral to the distal psoas muscle, underlying the rectus femoris. * The described lipomatous mass measures 4 x 4.5 x 5.5 cm (series 6 image 34 and series 4 image 65). It measures 4 x 4.4 x 5.5 cm on 06/23/2022 and 3.7 a 4.4 x 5 cm on 08/05/2021. Although a subtle increase in size of cancer since 2020 it is considered nonsignificant. * No areas of diffusion restriction observed. Vascular structures and since of dye are demonstrated within the the mass (series 8 image 101). * No synchronous soft tissue mass seen elsewhere Nodes: * No pelvic or inguinal lymphadenopathy observed. Bones: * No bone metastases are demonstrated. Visceral pelvis: * The bladder distended without intraluminal filling defects. * Hysterectomy suspected. The vagina and urethra are within normal limits. No adnexal masses. No ascites. Procedure Note Arnie Solorio MD - 12/23/2022 FULL RESULT: Examination: MRI PELVIS W WO CONTRAST, 12/23/2022 10:53 AM. Clinical History: Benign lipomatous neoplasm of skin and subcutaneoustissue of other sites Indication: 72-year-old female patient with lipomatous tumor of the leftanterior hip Comparison: MRI 06/23/2022 and 08/05/2021 Technique: Multiplanar multisequence magnetic resonance imaging of thepelvis was performed without and with intravenous administration ofcontrast. Findings: Tumor: * There is redemonstration of a left sided soft tissue mass along theproximal and anterolateral thigh, anterior lateral to the left femoralneck and greater trochanter and lateral to the distal psoas muscle,underlying the rectus femoris. * The described lipomatous mass measures 4 x 4.5 x 5.5 cm (series 6 image34 and series 4 image 65). It measures 4 x 4.4 x 5.5 cm on 06/23/2022 and3.7 a 4.4 x 5 cm on 08/05/2021. Although a subtle increase in size ofcancer since 2020 it is considered nonsignificant. * No areas of diffusion restriction observed. Vascular structures andsince of dye are demonstrated within the the mass (series 8 image 101). * No synchronous soft tissue mass seen elsewhere Nodes: * No pelvic or inguinal lymphadenopathy observed. Bones: * No bone metastases are demonstrated. Visceral pelvis: * The bladder distended without intraluminal filling defects. * Hysterectomy suspected. The vagina and urethra are within normallimits. No adnexal masses. No ascites. IMPRESSION: Redemonstration of a soft tissue lipomatous mass from the anteriorproximal left thigh, with interval stability in comparison with prior MRI06/23/2022, with minimal interval enlargement since 08/05/2021. Miguelina Farfan APRN IMG MRI ORDERABLES after 11/04/2022 Care Teams Supervisor Litharge Relationship Specialty Start Date End Date Hugo Rich MD [address] [facility] [place] [id number] PCP - External Referring General Surgery 09/16/20 Koko Krause MD [address] [place] [address] PCP - External Follow Up A Gastroenterology 09/17/20 Steve Soriano MD [address] [place] [address] PCP - External Follow Up B Hematology and Oncology 09/17/20 Ish Oviedo MD [address] [place] [address] PCP - General Orthopaedic Sarcoma 09/19/20 Reza Cassidy MD [address] [place] [id number] PCP - External Primary Care Provider Internal Medicine 08/07/21
[2023-11-04 14:42] LABS: Absolute Lymphocytes (CBC) 1.8 K/uL (0.7-4.9); Lymphocytes % 14.9 % (15.3-44.8); MPV 8.1 fL (7.6-11.3); Platelets 301 thou/uL (152-406); RBC Red Blood Cell Count 4.72 M/uL (3.86-4.86)
[2023-11-04 14:56] LABS: Potassium 4.2 mEq/L (3.5-5.1)
[2023-11-04 15:03] LABS: SARS-CoV-2 Antigen Rapid Res Negative (Negative)
--- NOTE | 2023-11-04 15:46 | ER ---
Nurse's Notes [facility] Name: Erma Lara Age: 72 yrs Sex: Female : 1950 Arrival Date: 11/04/2023 Time: 13:56 Bed 9 Private MD: Diagnosis: Candidal pharyngitis Presentation: 11/04 14:03 Chief complaint: Patient states: STATES STARTED WITH SORE THROAT AND MOUTH PAIN ON db WEDNESDAY, SYMPTOMS WORSE NOW AND HAS BLEEDING ULCERS IN MOUTH NOW. WEDNESDAY PHYSICIAN PRESCRIBED AMOXICILLIN-CLAUV, PROMETHAZINE-DM, AND LIDOCAIN/DIPHENTYL/ANTACID. Coronavirus screen: Client denies travel out of the [place] in the last 14 days. At this time, the client does not indicate any symptoms associated with coronavirus-19. Ebola Screen: Patient negative for fever greater than or equal to 101.5 degrees Fahrenheit, and additional compatible Ebola Virus Disease symptoms Patient denies exposure to infectious person. Patient denies travel to an Ebola-affected area in the 21 days before illness onset. No symptoms or risks identified at this time. Initial Sepsis Screen: Does the patient meet any 2 criteria? No. Patient's initial sepsis screen is negative. Does the patient have a suspected source of infection? No. Patient's initial sepsis screen is negative. Risk Assessment: Do you want to hurt yourself or someone else? Patient reports no desire to harm self or others. Onset of symptoms was October 28, 2023. 14:03 Method Of Arrival: Ambulatory db 14:03 Acuity: TRISTON 3 db Triage Assessment: 14:03 General: Appears in no apparent distress. comfortable, Behavior is calm, cooperative. db Pain: Complains of pain in mouth. EENT: Reports difficulty swallowing since X 1 WEEK. Neuro: Level of Consciousness is awake, alert, obeys commands, Oriented to person, place, time, situation. Respiratory: Airway is patent Respiratory effort is even, unlabored, Respiratory pattern is regular, symmetrical. Historical: - Allergies: 14:07 HYDROCODONE; db - PMHx: 14:07 Crohn's; Hyperlipidemia; Migraines; db - Immunization history:: Adult Immunizations unknown. - Social history:: Smoking status: Patient denies any tobacco usage or history of. Screenin:10 [facility] Fall Risk Assessment (Adult) History of falling in the last 3 months, rs5 including since admission No falls in past 3 months (0 pts) Confusion or Disorientation No (0 pts) Intoxicated or Sedated No (0 pts) Impaired Gait No (0 pts) Mobility Assist Device Used No (0 pt) Altered Elimination No (0 pt) Score/Fall Risk Level 0 - 2 = Low Risk Oriented to surroundings, Maintained a safe environment. Abuse screen: Denies threats or abuse. Nutritional screening: No deficits noted. Tuberculosis screening: No symptoms or risk factors identified. Assessment: 14:10 General: Appears in no apparent distress. uncomfortable, Behavior is calm, cooperative. rs5 Pain: Complains of pain in back of throat Pain does not radiate. Pain currently is 5 out of 10 on a pain scale. Quality of pain is described as aching, Pain began 2-3 days ago. Is continuous, Aggravated by eating, drinking. Neuro: Level of Consciousness is awake, alert, obeys commands, Oriented to person, place, time, situation. Cardiovascular: Heart tones S1 S2 present Patient's skin is warm and dry. Rhythm is regular. Respiratory: Airway is patent Respiratory effort is even, unlabored, Respiratory pattern is regular, symmetrical, Breath sounds are clear bilaterally. GI: Abdomen is flat, non-distended, Bowel sounds present X 4 quads. Abd is soft and non tender X 4 quads. : No signs and/or symptoms were reported regarding the genitourinary system. EENT: Throat is reddened Reports sore throat. Derm: Skin is intact, Skin is pink, warm \T\ dry. Musculoskeletal: Circulation, motion, and sensation intact. Range of motion: intact in all extremities. 15:01 Reassessment: Patient and/or family updated on plan of care and expected duration. Pain rs5 level reassessed. Patient is alert, oriented x 3, equal unlabored respirations, skin warm/dry/pink. Patient states feeling better. Patient states symptoms have improved. 16:00 Reassessment: Patient and/or family updated on plan of care and expected duration. Pain rs5 level reassessed. Patient is alert, oriented x 3, equal unlabored respirations, skin warm/dry/pink. Pain: Complains of pain in back of throat Pain currently is 6 out of 10 on a pain scale. Quality of pain is described as aching, Is continuous. 16:01 Reassessment: Provider notfied pt is experiencing pain. rs5 16:24 Reassessment: Patient and/or family updated on plan of care and expected duration. Pain rs5 level reassessed. Patient is alert, oriented x 3, equal unlabored respirations, skin warm/dry/pink. Patient denies pain at this time. Patient states feeling better. Patient states symptoms have improved. Vital Signs: 14:03 BP 133 / 72; Pulse 102; Resp 18; Temp 98.1(O); Pulse Ox 97% ; Weight 61.69 kg; Height 5 db ft. 2 in. ; 15:17 BP 140 / 75; Pulse 80; Resp 18; Pulse Ox 99% on R/A; rs5 14:03 Body Mass Index 24.87 (61.69 kg, 157.48 cm) db ED Course: 13:57 Patient arrived in ED. ra3 13:59 Tram Cannon PA-C is PHCP. sb4 13:59 Toribio Vela DO is Attending Physician. sb4 14:03 Arm band placed on Patient placed. db 14:07 Triage completed. db 14:10 Patient has correct armband on for positive identification. Bed in low position. Call rs5 light in reach. Side rails up X2. 14:14 Froy Gee, RN is Primary Nurse. rs5 14:15 Inserted saline lock: 24 gauge in left upper arm, using aseptic technique. Blood rs5 collected. 15:18 No provider procedures requiring assistance completed. rs5 15:45 Reza Cassidy MD is Referral Physician. sb4 16:25 IV discontinued, intact, bleeding controlled, No redness/swelling at site. Pressure rs5 dressing applied. Administered Medications: 14:30 Drug: Acetaminophen PO 1000 mg PO once Route: PO; rs5 15:18 Follow up: Response: No adverse reaction; Pain is decreased rs5 16:05 Drug: fentaNYL (PF) IM 50 mcg IM once Route: IM; Site: left deltoid; rs5 16:24 Follow up: Response: No adverse reaction rs5 16:05 Drug: Ondansetron Oral Disintegrating Tablet Oral Disintegrating Tablet 4 mg PO once rs5 Route: PO; 16:24 Follow up: Response: No adverse reaction rs5 Medication: 15:18 VIS not applicable for this client. rs5 Outcome: 15:46 Discharge ordered by . sb4 16:25 Discharged to home ambulatory, rs5 16:25 Condition: stable rs5 16:25 Discharge instructions given to patient, Instructed on discharge instructions, follow up and referral plans. medication usage, Demonstrated understanding of instructions, follow-up care, medications, Prescriptions given X 1, 16:32 Patient left the ED. rs5 Signatures: Nayana Harvey RN RN db Tram Cannon PA-C PA-C sb4 Froy Gee RN RN rs5 Cecelia Izaguirre ra3 Corrections: (The following items were deleted from the chart) 14:07 14:03 Onset of symptoms was November 04, 2023 db db 14:08 14:03 BP 133 / 72; Pulse 102bpm; Resp 18bpm; Pulse Ox 97%; Temp 98.1F Oral; db db 17:03 16:17 Pain: Complains of pain in back of throat Pain currently is 6 out of 10 on a pain rs5 scale. Quality of pain is described as aching, Is continuous, rs5 17:03 16:17 Reassessment: Patient and/or family updated on plan of care and expected rs5 duration. Pain level reassessed. Patient is alert, oriented x 3, equal unlabored respirations, skin warm/dry/pink. rs5 17:03 16:20 Reassessment: Provider notfied pt is experiencing pain. rs5 rs5
--- NOTE | 2023-11-04 15:46 | EDPHYS ---
Physician Documentation [facility] Name: Erma Lara Age: 72 yrs Sex: Female : 1950 Arrival Date: 11/04/2023 Time: 13:56 Bed 9 Private MD: ED Physician Toribio Vela HPI: 11/04 14:11 This 72 yrs old Female presents to ER via Ambulatory with complaints of Sore Throat, sb4 Decreased Appetite. 14:17 Patient reports progressively worsening sore throat x 1 week. She states that her PCP sb4 started her on Augmentin, viscous lidocaine, and Promethazine DM 3 days ago without improvement in symptoms. She does report a history of shingles in the ear. She denies any fever, chills, nausea, vomiting. She states that she has had a 12 pound weight loss over the past week. Denies any URI symptoms. Historical: - Allergies: 14:07 HYDROCODONE; db - PMHx: 14:07 Crohn's; Hyperlipidemia; Migraines; db - Immunization history:: Adult Immunizations unknown. - Social history:: Smoking status: Patient denies any tobacco usage or history of. ROS: 14:17 Constitutional: Negative for fever, chills, and weight loss, sb4 14:17 ENT: Positive for sore throat, 14:17 All other systems are negative, 14:24 Constitutional: Positive for weight loss, Negative for fever, sb4 Exam: 14:17 Constitutional: This is a well developed, well nourished patient who is awake, alert, sb4 and in no acute distress. Head/Face: Normocephalic, atraumatic. Eyes: Extra-ocular motions intact. Periorbital areas with no swelling, redness, or edema. Cardiovascular: Regular rate and rhythm with a normal S1 and S2. Respiratory: Lungs have equal breath sounds bilaterally, clear to auscultation and percussion. No rales, rhonchi or wheezes noted. No increased work of breathing, no retractions or nasal flaring. Abdomen/GI: Soft, non-tender, no distension. Skin: Warm, dry with normal turgor. Normal color with no rashes, no lesions, and no evidence of cellulitis. MS/ Extremity: Pulses equal, no cyanosis. Neurovascular intact. Full, normal range of motion. Neuro: Awake and alert, GCS 15, oriented to person, place, time, and situation. Motor strength 5/5 in all extremities. Sensory grossly intact. 14:17 ENT: Posterior pharynx: Airway: normal, no evidence of obstruction, Tonsils: with erythema, Uvula: edematous, erythema, swelling, is not appreciated, erythema, that is marked, exudate, that is mild, peritonsillar mass, is not appreciated, Vital Signs: 14:03 BP 133 / 72; Pulse 102; Resp 18; Temp 98.1(O); Pulse Ox 97% ; Weight 61.69 kg; Height 5 db ft. 2 in. ; 15:17 BP 140 / 75; Pulse 80; Resp 18; Pulse Ox 99% on R/A; rs5 14:03 Body Mass Index 24.87 (61.69 kg, 157.48 cm) db MDM: 14:03 Patient medically screened. sb4 14:17 Differential diagnosis: group A strep tonsillitis, influenza, mononucleosis, sb4 peritonsillar abscess pharyngitis, retropharyngeal abcess tonsillitis, upper respiratory infection, uvulitis. 15:44 Data reviewed: vital signs, nurses notes, lab test result(s), I have discussed the sb4 patient's presentation/case with the attending Emergency Department Physician; and as a result, I will discharge patient. Historians other than the Patient: Spouse/Significant Other: . Counseling: I had a detailed discussion with the patient and/or guardian regarding the historical points, exam findings, and any diagnostic results supporting the discharge/admit diagnosis, lab results, to return to the emergency department if symptoms worsen or persist or if there are any questions or concerns that arise at home. 11/04 14:10 Order name: Strep; Complete Time: 14:55 sb4 11/04 14:10 Order name: SARS RAPID; Complete Time: 15:06 sb4 11/04 14:10 Order name: Flu; Complete Time: 15:06 sb4 11/04 14:10 Order name: [place] Screen Profile; Complete Time: 15:21 sb4 11/04 14:10 Order name: CBC with Diff; Complete Time: 14:46 sb4 11/04 14:10 Order name: BMP; Complete Time: 14:57 sb4 11/04 14:10 Order name: IV Start; Complete Time: 14:42 sb4 Administered Medications: 14:30 Drug: Acetaminophen PO 1000 mg PO once Route: PO; rs5 15:18 Follow up: Response: No adverse reaction; Pain is decreased rs5 16:05 Drug: fentaNYL (PF) IM 50 mcg IM once Route: IM; Site: left deltoid; rs5 16:24 Follow up: Response: No adverse reaction rs5 16:05 Drug: Ondansetron Oral Disintegrating Tablet Oral Disintegrating Tablet 4 mg PO once rs5 Route: PO; 16:24 Follow up: Response: No adverse reaction rs5 Disposition: 16:53 I was immediately available on-site in the Emergency Department for consultation in the ms3 care of the patient. Disposition Summary: 11/04/23 15:46 Discharge Ordered Notes: Location: Home sb4 Problem: an ongoing problem sb4 Symptoms: are unchanged sb4 Condition: Stable sb4 Diagnosis - Candidal pharyngitis sb4 Followup: sb4 - With: Reza Cassidy MD - When: 2 - 3 days - Reason: Recheck today's complaints, Re-evaluation by your physician Discharge Instructions: - Discharge Summary Sheet sb4 - Oral Thrush, Adult, [id number] sb4 Forms: - Medication Reconciliation Form sb4 - Thank You Letter sb4 - Antibiotic Education sb4 - Prescription Opioid Use sb4 - Patient Portal Instructions sb4 - Leadership Thank You Letter sb4 Prescriptions: - Nystatin 100,000 unit/mL Oral suspension - take 5 milliliters ORAL route every 6 hours for 7 days; 120 milliliter; sb4 Refills: 0, Product Selection Permitted Signatures: Dispatcher [employer] EDDC Toribio Vela DO DO ms3 Nayana Harvey, RN RN Tram Peterson PA-C PAZachary sb4 Froy Gee RN RN rs5
[2023-11-04 16:49] VITALS: BP 140/75; TEMP 98.1; O2SAT 99
== END ==
LOC: ER 13:56
DX: J02.8 Acute pharyngitis due to other specified organisms (principal); Z11.52 Encounter for screening for COVID-19; Z88.5 Allergy status to narcotic agent
CPT/HCPCS: 85025; 80048; 36415; 86308; 87081; 87804 ×2; 87811; Q0162; J3010